=== PATIENT | male | born 1955 | race Caucasian/White ===

== ENCOUNTER 2017-05-30 13:28 | Emergency (ER) | payer MEDICARE, OTHER ==
[~2017-05-30] VITALS: Ht 182.9 cm; Wt 68.2 kg
[2017-05-30 14:09] VITALS: BP 135/87; PULSE 75; RESP 14; TEMP 98.6; O2SAT 98
--- NOTE | 2017-05-30 14:23 | PD ---
HPI Chief Complaint: Alcohol/Drug Intoxication Time Seen by Provider: 14:10 Travel History International Travel<30 days: No Contact w/Intl Traveler<30days: No Traveled to known affect area: No History of Present Illness HPI BROUGHT IN BY [place] [employer]ICE , DUE TO ETOH INTOXICATION APPARENTLY WHILE AT [facility], PT WAS UNABLE TO EXIT UNDER HIS OWN POWER SO PD CALLED, [facility] Social History Alcohol Use: Yes Tobacco Use: Yes Allergies-Medications (Allergen,Severity, Reaction): Coded Allergies: No Known Allergies (Unverified , 05/30/17) Reported Meds & Prescriptions Reported Meds & Active Scripts Active Active Prescriptions or Reported Medications Unobtainable Review of Systems Except as stated in HPI: all other systems reviewed are Neg Psychiatric: Positive: Substance Abuse Physical Exam Narrative GENERAL: PATIENT IS RIGHT AKA, ETOH ON BREATH, DECLINING TO ANSWER QUESTIONS, STATES HE DOESN'T WANT TO BE HERE SKIN: Warm and dry. HEAD: Atraumatic. Normocephalic. EYES: Pupils equal and round. No scleral icterus. No injection or drainage. ENT: No nasal bleeding or discharge. Mucous membranes pink and moist. NECK: Trachea midline. No JVD. CARDIOVASCULAR: Regular rate and rhythm. RESPIRATORY: No accessory muscle use. Clear to auscultation. Breath sounds equal bilaterally. GASTROINTESTINAL: Abdomen soft, non-tender, nondistended. MUSCULOSKELETAL: Extremities without clubbing, cyanosis, or edema. No obvious deformities. NEUROLOGICAL: Awake and alert. No obvious cranial nerve deficits. Motor grossly within normal limits. Five out of 5 muscle strength in the arms and legs. PSYCHIATRIC: DIFFICULT TO ASSESS. PATIENT IS VERBALLY ABUSIVE AND ATTEMPTED TO SWING AT RN, RESTRAINTS PLACED TO PROTECT STAFF. Data Data Last Documented VS Vital Signs Date Time Temp Pulse Resp B/P (MAP) Pulse Ox O2 Delivery O2 Flow Rate FiO2 05/30/17 14:09 98.6 75 14 135/87 (103) 98 Orders Orders Basic Metabolic Panel (Bmp) (05/30/17 14:16) Complete Blood Count With Diff (05/30/17 14:16) Creatine Kinase (Cpk) (05/30/17 14:16) Urinalysis - C+S If Indicated (05/30/17 14:16) Ct Brain W/O Iv Contrast(Rout) (05/30/17 14:16) Drug Screen, Random Urine (05/30/17 14:16) Alcohol (Ethanol) (05/30/17 14:16) Tylenol (Acetaminophen) (05/30/17 14:16) Salicylates (Aspirin) (05/30/17 14:16) CKMB (05/30/17 14:46) CKMB% (05/30/17 14:46) Thiamine Inj (Thiamine Inj) (05/30/17 16:15) Sodium Chlor 0.9% 1000 Ml Inj (Ns 1000 M (05/30/17 16:15) Basic Metabolic Panel (Bmp) (05/30/17 16:27) Sodium Bicarbonate 8.4% Inj (Sodium Bica (05/30/17 17:00) Labs Laboratory Tests Test 05/30/17 14:46 05/30/17 16:00 White Blood Count 10.0 TH/MM3 Red Blood Count 4.63 MIL/MM3 Hemoglobin 13.2 GM/DL Hematocrit 41.1 % Mean Corpuscular Volume 88.7 FL Mean Corpuscular Hemoglobin 28.6 PG Mean Corpuscular Hemoglobin Concent 32.2 % Red Cell Distribution Width 16.7 % Platelet Count 354 TH/MM3 Mean Platelet Volume 7.6 FL Neutrophils (%) (Auto) 62.8 % Lymphocytes (%) (Auto) 25.8 % Monocytes (%) (Auto) 6.7 % Eosinophils (%) (Auto) 4.0 % Basophils (%) (Auto) 0.7 % Neutrophils # (Auto) 6.3 TH/MM3 Lymphocytes # (Auto) 2.6 TH/MM3 Monocytes # (Auto) 0.7 TH/MM3 Eosinophils # (Auto) 0.4 TH/MM3 Basophils # (Auto) 0.1 TH/MM3 CBC Comment DIFF FINAL Differential Comment Blood Urea Nitrogen 13 MG/DL Creatinine 0.59 MG/DL Random Glucose 63 MG/DL Calcium Level 8.4 MG/DL Sodium Level 130 MEQ/L Potassium Level 6.2 MEQ/L Chloride Level 103 MEQ/L Carbon Dioxide Level 19.1 MEQ/L Anion Gap 8 MEQ/L Estimat Glomerular Filtration Rate 119 ML/MIN Total Creatine Kinase 338 U/L Creatine Kinase MB 3.6 NG/ML Creatine Kinase MB % 1.1 % Salicylates Level 4.0 MG/DL Acetaminophen Level LESS THAN 2.0 MCG/ML Ethyl Alcohol Level 133 MG/DL Urine Color LIGHT-YELLOW Urine Turbidity CLEAR Urine pH 5.0 Urine Specific [place] 1.007 Urine Protein NEG mg/dL Urine Glucose (UA) NEG mg/dL Urine Ketones NEG mg/dL Urine Occult Blood NEG Urine Nitrite NEG Urine Bilirubin NEG Urine Urobilinogen LESS THAN 2.0 MG/DL Urine Leukocyte Esterase TRACE Urine RBC 1 /hpf Urine WBC 2 /hpf Microscopic Urinalysis Comment CATH-CULT NOT IND Urine Opiates Screen NEG Urine Barbiturates Screen NEG Urine Amphetamines Screen NEG Urine Benzodiazepines Screen NEG Urine Cocaine Screen NEG Urine Cannabinoids Screen NEG MDM Medical Decision Making Medical Screen Exam Complete: Yes Emergency Medical Condition: Yes Medical Record Reviewed: Yes Differential Diagnosis ICH V ELECTROLYTE ABNL V ETOH INTOXICATION Narrative Course PATIENT CT HEAD NEG FOR ICH, NO ANEMIA, NO LEUKOCYTOSIS NOTED. ETOH MILDLY ELEVATED. ELECTROLYTES WERE ABNORMAL HOWEVER SAMPLE WAS ALSO LYSED, SO PATIENT GIVEN NS BOLUS, SINGLE AMP OF BICARB, AND REPEAT LABS...PATIENT SIGNED OUT TO DR SAINZ TO REEVAL AND DISPO Diagnosis Primary Impression: ETOH INTOXICATION Scripts Unable to Obtain Active Prescriptions or Reported Meds Jong Campbell MD May 30, 2017 14:23
--- NOTE | 2017-05-30 15:10 | RADRPT ---
EXAM DATE/TIME: 05/30/2017 14:51 [place] COMPARISON: No previous studies available for comparison. INDICATIONS : Found laying in parking lot RADIATION DOSE: 56.35 CTDIvol (mGy) MEDICAL HISTORY : Non-responsive. SURGICAL HISTORY : Non-responsive. ENCOUNTER: Initial ACUITY: 1 day PAIN SCALE: Non-responsive LOCATION: cranial TECHNIQUE: Multiple contiguous axial images were obtained of the head. Using automated exposure control and adj ustment of the mA and/or kV according to patient size, radiation dose was kept as low as reasonably a chievable to obtain optimal diagnostic quality images. DICOM format image data is available electro nically for review and comparison. FINDINGS: CEREBRUM: Large area of encephalomalacia left middle cerebral artery distribution from previous infarct. Ex vac uo dilatation left lateral ventricle. The ventricles are otherwise normal. No evidence of midline sh ift, mass lesion, hemorrhage or acute infarction. No extra-axial fluid collections are seen. POSTERIOR FOSSA: The cerebellum and brainstem are intact. The 4th ventricle is midline. The cerebellopontine angle i s unremarkable. EXTRACRANIAL: The visualized portion of the orbits is intact. SKULL: The calvaria is intact. No evidence of skull fracture. CONCLUSION: 1. 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 2. No acute intracranial abnormality. Michael Aguero MD on May 30, 2017 at 15:08 Board Certified Radiologist. This report was verified electronically.
[2017-05-30 15:33] LABS: AUTOMATED NEUTROPHIL # 6.3 TH/MM3 (1.8-7.7); BASOPHIL # 0.1 TH/MM3 (0-0.2); BASOPHIL % 0.7 % (0.0-2.0); EOSINOPHIL # 0.4 TH/MM3 (0-0.4); HEMATOCRIT 41.1 % (39.0-51.0); HEMO FLAGS DIFF FINAL; LYMPH % 25.8 % (9.0-44.0); LYMPHOCYTE # 2.6 TH/MM3 (1.0-4.8); MEAN CELL VOLUME 88.7 FL (80.0-100.0); MEAN CORPUSCULAR HEMOGLOBIN 28.6 PG (27.0-34.0); MEAN CORPUSCULAR HGB CONC 32.2 % (32.0-36.0); MONO % 6.7 % (0.0-8.0); NEUT % 62.8 % (16.0-70.0); PLATELET COUNT 354 TH/MM3 (150-450); RED BLOOD COUNT 4.63 MIL/MM3 (4.50-5.90); RED CELL DISTRIBUTION WIDTH 16.7 % (11.6-17.2)
[2017-05-30 15:56] LABS: ANION GAP 8 MEQ/L (5-15); BICARBONATE 19.1 MEQ/L (21.0-32.0); BLOOD UREA NITROGEN 13 MG/DL (7-18); CHLORIDE 103 MEQ/L (98-107); GLOMERULAR FILTRATION RATE 119 ML/MIN (>89); SODIUM (NA) 130 MEQ/L (136-145)
[2017-05-30 15:58] LABS: CREATINE KINASE 338 U/L (39-308)
[2017-05-30 16:01] LABS: ACETAMINOPHEN LESS THAN 2.0 MCG/ML (10.0-30.0); ALCOHOL 133 MG/DL (0-5); POTASSIUM 6.2 MEQ/L (3.5-5.1)
[2017-05-30] MEDS ORDERED: SODIUM CHLOR 0.9% 1000 ML INJ 1,000 ML IV ONE (16:15)
[2017-05-30] MEDS ORDERED: THIAMINE INJ 100 MG in SODIUM CHLORIDE 0.9% INJ 100 ML IV ONE (16:15)
[2017-05-30 16:27] LABS: CKMB 3.6 NG/ML (0.5-3.6)
[2017-05-30 16:44] LABS: BLOOD, URINE NEG (NEG); GLUCOSE,URINE NEG (NEG); KETONE, URINE NEG (NEG); NITRITE,URINE NEG (NEG); URINE COLOR LIGHT-YELLOW (YELLW/STRAW)
[2017-05-30 16:46] LABS: COMMENT (UR) CATH-CULT NOT IND; CULTURE IF INDICATED CATH CULTURE NOT IND
[2017-05-30] MEDS ORDERED: SODIUM BICARBONATE 8.4% INJ 50 MEQ/50 ML SYR IV PUSH ONE (17:00)
[2017-05-30 18:05] LABS: BICARBONATE 21.6 MEQ/L (21.0-32.0)
--- NOTE | 2017-05-30 18:55 | PD ---
Physical Exam Narrative Patient signed out to me by Dr. Campbell. Please see his documentation for complete details. Briefly, patient was brought in by police after he was unable to leave on his own accord from a local bar. Patient was violent and uncooperative when he arrived, he required restraints. CT of his head was performed shows no acute abnormalities. Patient is sleeping comfortably, there is an old bruise to his right eye, no other signs of trauma. Data Data Last Documented VS Vital Signs Date Time Temp Pulse Resp B/P (MAP) Pulse Ox O2 Delivery O2 Flow Rate FiO2 05/30/17 14:09 98.6 75 14 135/87 (103) 98 Orders Orders Basic Metabolic Panel (Bmp) (05/30/17 14:16) Complete Blood Count With Diff (05/30/17 14:16) Creatine Kinase (Cpk) (05/30/17 14:16) Urinalysis - C+S If Indicated (05/30/17 14:16) Ct Brain W/O Iv Contrast(Rout) (05/30/17 14:16) Drug Screen, Random Urine (05/30/17 14:16) Alcohol (Ethanol) (05/30/17 14:16) Tylenol (Acetaminophen) (05/30/17 14:16) Salicylates (Aspirin) (05/30/17 14:16) CKMB (05/30/17 14:46) CKMB% (05/30/17 14:46) Thiamine Inj (Thiamine Inj) (05/30/17 16:15) Sodium Chlor 0.9% 1000 Ml Inj (Ns 1000 M (05/30/17 16:15) Basic Metabolic Panel (Bmp) (05/30/17 16:27) Sodium Bicarbonate 8.4% Inj (Sodium Bica (05/30/17 17:00) Labs Laboratory Tests Test 05/30/17 14:46 05/30/17 16:00 05/30/17 17:00 White Blood Count 10.0 TH/MM3 Red Blood Count 4.63 MIL/MM3 Hemoglobin 13.2 GM/DL Hematocrit 41.1 % Mean Corpuscular Volume 88.7 FL Mean Corpuscular Hemoglobin 28.6 PG Mean Corpuscular Hemoglobin Concent 32.2 % Red Cell Distribution Width 16.7 % Platelet Count 354 TH/MM3 Mean Platelet Volume 7.6 FL Neutrophils (%) (Auto) 62.8 % Lymphocytes (%) (Auto) 25.8 % Monocytes (%) (Auto) 6.7 % Eosinophils (%) (Auto) 4.0 % Basophils (%) (Auto) 0.7 % Neutrophils # (Auto) 6.3 TH/MM3 Lymphocytes # (Auto) 2.6 TH/MM3 Monocytes # (Auto) 0.7 TH/MM3 Eosinophils # (Auto) 0.4 TH/MM3 Basophils # (Auto) 0.1 TH/MM3 CBC Comment DIFF FINAL Differential Comment Blood Urea Nitrogen 13 MG/DL 13 MG/DL Creatinine 0.59 MG/DL 0.56 MG/DL Random Glucose 63 MG/DL 59 MG/DL Calcium Level 8.4 MG/DL 8.5 MG/DL Sodium Level 130 MEQ/L 137 MEQ/L Potassium Level 6.2 MEQ/L 4.0 MEQ/L Chloride Level 103 MEQ/L 107 MEQ/L Carbon Dioxide Level 19.1 MEQ/L 21.6 MEQ/L Anion Gap 8 MEQ/L 8 MEQ/L Estimat Glomerular Filtration Rate 119 ML/MIN 126 ML/MIN Total Creatine Kinase 338 U/L Creatine Kinase MB 3.6 NG/ML Creatine Kinase MB % 1.1 % Salicylates Level 4.0 MG/DL Acetaminophen Level LESS THAN 2.0 MCG/ML Ethyl Alcohol Level 133 MG/DL Urine Color LIGHT-YELLOW Urine Turbidity CLEAR Urine pH 5.0 Urine Specific [place] 1.007 Urine Protein NEG mg/dL Urine Glucose (UA) NEG mg/dL Urine Ketones NEG mg/dL Urine Occult Blood NEG Urine Nitrite NEG Urine Bilirubin NEG Urine Urobilinogen LESS THAN 2.0 MG/DL Urine Leukocyte Esterase TRACE Urine RBC 1 /hpf Urine WBC 2 /hpf Microscopic Urinalysis Comment CATH-CULT NOT IND Urine Opiates Screen NEG Urine Barbiturates Screen NEG Urine Amphetamines Screen NEG Urine Benzodiazepines Screen NEG Urine Cocaine Screen NEG Urine Cannabinoids Screen NEG MDM Supervised Visit with RAÚL: No Narrative Course Repeat BMP shows no acute abnormalities. Blood alcohol level was 133, is currently sober at this time. He is still refusing to answer any questions. He is aggressive and uncooperative. Medically, there are no abnormalities seen. He'll be discharged home. Advised to avoid alcohol use. Diagnosis Primary Impression: ETOH INTOXICATION Patient Instructions: Abuse of Alcohol (ED), General Instructions Additional Instruction: Avoid alcohol use. Drink plenty of fluids. Follow-up with her primary care doctor. Return to the ED as needed for any worsening symptoms. Scripts Unable to Obtain Active Prescriptions or Reported Meds Disposition: 01 DISCHARGE HOME Condition: Stable Tatyana Mcnally MD May 30, 2017 18:55
== END 2017-05-30 21:21 | disposition home or self-care (01) ==
LOC: EDBD 13:28 → NEDAMB 13:28 → NEPD 21:21
DX: F10.920 Alcohol use, unspecified with intoxication, uncomplicated (principal)
CPT/HCPCS: 70450; 80048; 80307; 81001; 82550; 82552; 85025; 96365; 96366; 99285; J3411; J7030

== ENCOUNTER 2017-06-04 07:18 | Emergency (ER) | payer MEDICARE, OTHER ==
[~2017-06-04] VITALS: Ht 172.7 cm; Wt 80.0 kg
[2017-06-04 07:30] VITALS: BP 160/106; PULSE 92; RESP 16; TEMP 97.7; O2SAT 96
--- NOTE | 2017-06-04 07:54 | PD ---
HPI Chief Complaint: Alcohol/Drug Intoxication Time Seen by Provider: 07:28 Travel History International Travel<30 days: No Contact w/Intl Traveler<30days: No Traveled to known affect area: No History of Present Illness HPI 61 yo M arrives by EMS. Pt found on sidewalk in front of [place] this am. EMS reports agitation and etoh on breath. Pt agitated at time of interview. He was seen here last night following ED evaluation for alcohol intoxication and was discharged at 1830. [facility] Social History Alcohol Use: Yes Tobacco Use: Yes Allergies-Medications (Allergen,Severity, Reaction): Coded Allergies: No Known Allergies (Unverified , 05/30/17) Reported Meds & Prescriptions Reported Meds & Active Scripts Active Active Prescriptions or Reported Medications Unobtainable Review of Systems ROS Limitations: Intoxication Physical Exam Narrative GENERAL: 61 yo M, etoh on breath, asleep, arouses to tactile stimulus SKIN: Warm and dry. HEAD: Atraumatic. Normocephalic. EYES: Pupils equal and round. No scleral icterus. No injection or drainage. ENT: No nasal bleeding or discharge. Mucous membranes pink and moist. Healing laceration R face just inferior to the R lower lid. NECK: Trachea midline. No JVD. CARDIOVASCULAR: Regular rate and rhythm. RESPIRATORY: No accessory muscle use. Clear to auscultation. Breath sounds equal bilaterally. GASTROINTESTINAL: Abdomen soft, non-tender, nondistended. Hepatic and splenic margins not palpable. MUSCULOSKELETAL: Extremities without clubbing, cyanosis, or edema. No obvious deformities. NEUROLOGICAL: GCS 15. No focal CN deficit. Moving all extremities. PSYCHIATRIC: EtOH on breath. Agitated. Uncooperative. Data Data Last Documented VS Vital Signs Date Time Temp Pulse Resp B/P (MAP) Pulse Ox O2 Delivery O2 Flow Rate FiO2 06/04/17 07:30 97.7 92 16 160/106 (124) 96 VS reviewed [facility] Medical Decision Making Medical Screen Exam Complete: Yes Emergency Medical Condition: Yes Medical Record Reviewed: Yes Differential Diagnosis etoh intoxication, alcoholism, drug abuse, malingering, homelessness Narrative Course pt gradually became sober in the er after about 6 hours. discharge home. [facility]. Diagnosis Primary Impression: Alcohol intoxication Qualified Codes: F10.920 - Alcohol use, unspecified with intoxication, uncomplicated Referrals: [facility] day Med/Other Pt SpecificInfo: No Change to Meds Scripts Unable to Obtain Active Prescriptions or Reported Meds Disposition: 01 DISCHARGE HOME Condition: Stable Daquan Gregg MD Jun 04, 2017 07:54
== END 2017-06-04 16:21 | disposition home or self-care (01) ==
LOC: NEPC 07:18 → NEDAMB 16:21
DX: F10.920 Alcohol use, unspecified with intoxication, uncomplicated (principal)
CPT/HCPCS: 99281

== ENCOUNTER 2017-06-06 15:28 | Inpatient (IN) | payer MEDICARE, OTHER ==
[~2017-06-06] VITALS: Ht 182.9 cm; Wt 117.2 kg
[2017-06-06 15:35] VITALS: BP 133/87; PULSE 79; RESP 18; TEMP 98.1; O2SAT 94
--- NOTE | 2017-06-06 16:12 | PD ---
HPI Chief Complaint: Medical Clearance Time Seen by Provider: 15:58 Travel History International Travel<30 days: No Contact w/Intl Traveler<30days: No Traveled to known affect area: No History of Present Illness HPI 61-year-old male that presents to the ED for evaluation of Smith act. Patient was Smith acted by police after apparently he made suicidal statements to police. Per patient he denies this. He states that he has not been able to drink anything because he is broke. He denies any substance abuse. He does have a history of alcoholism and homelessness. He is disabled and has a AKA on the right leg. Patient was here just in the 26 for a major psych. He denies any psychiatric issues. Takes no medications. No injuries or falls. He does have a chronic wound to his right face that he states he got when he was 19. He has no allergies to medication. Other medical issues. Per patient he does have a lot of social issues secondary to being homeless. PFSH Past Medical History Hypertension: Yes Social History Alcohol Use: Yes Tobacco Use: Yes Allergies-Medications (Allergen,Severity, Reaction): Coded Allergies: No Known Allergies (Unverified , 05/30/17) Reported Meds & Prescriptions Reported Meds & Active Scripts Active Active Prescriptions or Reported Medications Unobtainable Review of Systems Except as stated in HPI: all other systems reviewed are Neg Physical Exam Narrative GENERAL: SKIN: Warm and dry. What appears to be a chronic wound to the right lower eyelid. HEAD: Atraumatic. Normocephalic. EYES: Pupils equal and round. No scleral icterus. No injection or drainage. ENT: No nasal bleeding or discharge. Mucous membranes pink and moist. Tongue is midline. No uvula deviation. NECK: Trachea midline. No JVD. CARDIOVASCULAR: Regular rate and rhythm. No murmurs, S3, S4. RESPIRATORY: No accessory muscle use. Clear to auscultation. Breath sounds equal bilaterally. GASTROINTESTINAL: Abdomen soft, non-tender, nondistended. Hepatic and splenic margins not palpable. MUSCULOSKELETAL: Extremities without clubbing, cyanosis, or edema. No obvious deformities. Full range of motion of the upper and lower extremities bilaterally. 2+ pulses bilaterally. Patient has an AKA on the right leg. NEUROLOGICAL: Awake and alert. No obvious cranial nerve deficits. Motor grossly within normal limits. Five out of 5 muscle strength in the arms and legs. Normal speech. PSYCHIATRIC: Appropriate mood and affect; insight and judgment normal. Data Data Last Documented VS Vital Signs Date Time Temp Pulse Resp B/P (MAP) Pulse Ox O2 Delivery O2 Flow Rate FiO2 06/06/17 15:35 98.1 79 18 133/87 (102) 94 Orders Orders Complete Blood Count With Diff (06/06/17 15:56) Comprehensive Metabolic Panel (06/06/17 15:56) Psych Screen (06/06/17 15:56) Drug Screen, Random Urine (06/06/17 15:56) Alcohol (Ethanol) (06/06/17 15:56) Salicylates (Aspirin) (06/06/17 15:56) Tylenol (Acetaminophen) (06/06/17 15:56) Labs Laboratory Tests Test 06/06/17 16:20 White Blood Count 9.1 TH/MM3 Red Blood Count 4.48 MIL/MM3 Hemoglobin 13.2 GM/DL Hematocrit 40.0 % Mean Corpuscular Volume 89.3 FL Mean Corpuscular Hemoglobin 29.5 PG Mean Corpuscular Hemoglobin Concent 33.1 % Red Cell Distribution Width 16.4 % Platelet Count 356 TH/MM3 Mean Platelet Volume 7.9 FL Neutrophils (%) (Auto) 56.5 % Lymphocytes (%) (Auto) 23.5 % Monocytes (%) (Auto) 9.1 % Eosinophils (%) (Auto) 10.2 % Basophils (%) (Auto) 0.7 % Neutrophils # (Auto) 5.1 TH/MM3 Lymphocytes # (Auto) 2.1 TH/MM3 Monocytes # (Auto) 0.8 TH/MM3 Eosinophils # (Auto) 0.9 TH/MM3 Basophils # (Auto) 0.1 TH/MM3 CBC Comment DIFF FINAL Differential Comment Blood Urea Nitrogen 13 MG/DL Creatinine 0.59 MG/DL Random Glucose 95 MG/DL Total Protein 7.0 GM/DL Albumin 3.2 GM/DL Calcium Level 8.3 MG/DL Alkaline Phosphatase 115 U/L Aspartate Amino Transf (AST/SGOT) 14 U/L Alanine Aminotransferase (ALT/SGPT) 14 U/L Total Bilirubin 0.5 MG/DL Sodium Level 141 MEQ/L Potassium Level 3.4 MEQ/L Chloride Level 110 MEQ/L Carbon Dioxide Level 23.8 MEQ/L Anion Gap 7 MEQ/L Estimat Glomerular Filtration Rate 140 ML/MIN Salicylates Level 5.6 MG/DL Ethyl Alcohol Level LESS THAN 3 MG/DL MDM Medical Decision Making Medical Screen Exam Complete: Yes Emergency Medical Condition: Yes Medical Record Reviewed: Yes Interpretation(s) CBC & BMP Diagram 06/06/17 16:20 Total Protein 7.0, Albumin 3.2 L, Calcium Level 8.3 L, Alkaline Phosphatase 115 , Aspartate Amino Transf (AST/SGOT) 14 L, Alanine Aminotransferase (ALT/SGPT) 14 , Total Bilirubin 0.5 tox negative Differential Diagnosis Depression versus suicidal ideation versus anxiety versus adjustment disorder versus mood disorder versus bipolar disorder versus schizophrenia versus paranoid disorder versus psychosis versus substance abuse versus alcohol abuse versus alcohol induced psychosis versus homicidality addition versus cutting versus personality disorder Narrative Course 61-year-old male that presents to the ED for evaluation of psychiatric evaluation. Patient was properly examined and was found to have signs and symptoms consistent with psychiatric issues. No sign of acute medical distress. Labs will be drawn. Patient will be medically clear. Okay to be seen by psych. Mental health screening was discussed with the patient. Diagnosis Primary Impression: Suicidal ideation Additional Impression: Substance induced mood disorder Scripts Unable to Obtain Active Prescriptions or Reported Meds Mando Payan Jun 06, 2017 16:12
[2017-06-06 16:53] LABS: AUTOMATED NEUTROPHIL # 5.1 TH/MM3 (1.8-7.7); BASOPHIL # 0.1 TH/MM3 (0-0.2); BASOPHIL % 0.7 % (0.0-2.0); EOSINOPHIL # 0.9 TH/MM3 (0-0.4); EOSINOPHIL % 10.2 % (0.0-4.0); HEMO FLAGS DIFF FINAL; LYMPH % 23.5 % (9.0-44.0); LYMPHOCYTE # 2.1 TH/MM3 (1.0-4.8); MEAN CELL VOLUME 89.3 FL (80.0-100.0); MEAN CORPUSCULAR HEMOGLOBIN 29.5 PG (27.0-34.0); MEAN CORPUSCULAR HGB CONC 33.1 % (32.0-36.0); MONO % 9.1 % (0.0-8.0); NEUT % 56.5 % (16.0-70.0); PLATELET COUNT 356 TH/MM3 (150-450); RED BLOOD COUNT 4.48 MIL/MM3 (4.50-5.90); RED CELL DISTRIBUTION WIDTH 16.4 % (11.6-17.2); WHITE BLOOD COUNT 9.1 TH/MM3 (4.0-11.0)
[2017-06-06 17:19] LABS: ALT (GPT) 14 U/L (12-78); ANION GAP 7 MEQ/L (5-15); AST (GOT) 14 U/L (15-37); BICARBONATE 23.8 MEQ/L (21.0-32.0); BLOOD UREA NITROGEN 13 MG/DL (7-18); CHLORIDE 110 MEQ/L (98-107); GLOMERULAR FILTRATION RATE 140 ML/MIN (>89); POTASSIUM 3.4 MEQ/L (3.5-5.1); SODIUM (NA) 141 MEQ/L (136-145)
[2017-06-06 17:21] LABS: ALCOHOL LESS THAN 3 MG/DL (0-5); ALKALINE PHOSPHATASE 115 U/L (45-117); TOTAL BILIRUBIN ADULT 0.5 MG/DL (0.2-1.0)
[2017-06-06 17:32] LABS: ACETAMINOPHEN LESS THAN 2.0 MCG/ML (10.0-30.0)
--- NOTE | 2017-06-06 18:51 | PD ---
Physical Exam Time Seen by Provider: 18:35 Narrative I was asked by [facility] nursing staff to evaluate patient's pressure ulcers which were found upon disrobing the patient. The patient is apparently here under Smith act for suicidal ideation. He has history of alcoholism and homelessness. 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 He is believed to be homeless and wheelchair-bound. Please see other providers full note regarding patient's presentation and medical treatment plan. Data Data Last Documented VS Vital Signs Date Time Temp Pulse Resp B/P (MAP) Pulse Ox O2 Delivery O2 Flow Rate FiO2 06/06/17 15:35 98.1 79 18 133/87 (102) 94 Orders Orders Complete Blood Count With Diff (06/06/17 15:56) Comprehensive Metabolic Panel (06/06/17 15:56) Psych Screen (06/06/17 15:56) Drug Screen, Random Urine (06/06/17 15:56) Alcohol (Ethanol) (06/06/17 15:56) Salicylates (Aspirin) (06/06/17 15:56) Tylenol (Acetaminophen) (06/06/17 15:56) Consult Wound / Ostomy Nurse (06/06/17 ) Labs Laboratory Tests Test 06/06/17 16:20 White Blood Count 9.1 TH/MM3 Red Blood Count 4.48 MIL/MM3 Hemoglobin 13.2 GM/DL Hematocrit 40.0 % Mean Corpuscular Volume 89.3 FL Mean Corpuscular Hemoglobin 29.5 PG Mean Corpuscular Hemoglobin Concent 33.1 % Red Cell Distribution Width 16.4 % Platelet Count 356 TH/MM3 Mean Platelet Volume 7.9 FL Neutrophils (%) (Auto) 56.5 % Lymphocytes (%) (Auto) 23.5 % Monocytes (%) (Auto) 9.1 % Eosinophils (%) (Auto) 10.2 % Basophils (%) (Auto) 0.7 % Neutrophils # (Auto) 5.1 TH/MM3 Lymphocytes # (Auto) 2.1 TH/MM3 Monocytes # (Auto) 0.8 TH/MM3 Eosinophils # (Auto) 0.9 TH/MM3 Basophils # (Auto) 0.1 TH/MM3 CBC Comment DIFF FINAL Differential Comment Blood Urea Nitrogen 13 MG/DL Creatinine 0.59 MG/DL Random Glucose 95 MG/DL Total Protein 7.0 GM/DL Albumin 3.2 GM/DL Calcium Level 8.3 MG/DL Alkaline Phosphatase 115 U/L Aspartate Amino Transf (AST/SGOT) 14 U/L Alanine Aminotransferase (ALT/SGPT) 14 U/L Total Bilirubin 0.5 MG/DL Sodium Level 141 MEQ/L Potassium Level 3.4 MEQ/L Chloride Level 110 MEQ/L Carbon Dioxide Level 23.8 MEQ/L Anion Gap 7 MEQ/L Estimat Glomerular Filtration Rate 140 ML/MIN Salicylates Level 5.6 MG/DL Acetaminophen Level LESS THAN 2.0 MCG/ML Ethyl Alcohol Level LESS THAN 3 MG/DL MDM Supervised Visit with RAÚL: Yes Narrative Course I was asked by [facility] nursing staff to evaluate patient's pressure ulcers which were found upon disrobing the patient. The patient is apparently here under Smith act for suicidal ideation. He has history of alcoholism and homelessness. 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 He is believed to be homeless and wheelchair-bound. Please see other providers full note regarding patient's presentation and medical treatment plan. Upon examination patient has stage II pressure ulcer to bilateral buttocks right side measuring approximately 2 x 2 centimeter and left side measuring 3 x 3 cm. there is no surrounding erythema or signs of infection. The nursing staff was instructed to offload the area by having the patient alternate lying on each side. The wound care consult was placed to evaluate and recommend treatment for patient's pressure ulcers. Diagnosis Primary Impression: Suicidal ideation Additional Impression: Substance induced mood disorder Scripts No Active Prescriptions or Reported Meds Fe Stovall Jun 06, 2017 18:51
[2017-06-06 21:28] LABS: BLOOD, URINE NEG (NEG); COMMENT (UR) CULTURE INDICATED; CULTURE IF INDICATED CULTURE INDICATED; GLUCOSE,URINE NEG (NEG); KETONE, URINE TRACE mg/dL (NEG); NITRITE,URINE NEG (NEG); SQUAMOUS EPITHELIAL CELL URINE 2 /hpf (0-5); URINE COLOR YELLOW (YELLW/STRAW)
[2017-06-06 22:00] VITALS: BP 186/105
[2017-06-06] MEDS ORDERED: FLUMAZENIL 0.5 MG/5 ML VIAL IV PUSH PRN (22:00)
[2017-06-06] MEDS ORDERED: diphenhydrAMINE HCL 50 MG CAP PO PRN (22:00)
[2017-06-06] MEDS ORDERED: diphenhydrAMINE HCL 50 MG/ML VIAL IM PRN (22:00)
[2017-06-06] MEDS ORDERED: LORazepam 2 MG TAB PO PRN (22:00)
[2017-06-06] MEDS ORDERED: MAGNESIUM HYDROXIDE SUSP 30 ML CUP PO PRN (22:00)
[2017-06-06] MEDS ORDERED: ACETAMINOPHEN 325 MG TAB PO PRN (22:00)
[2017-06-06] MEDS ORDERED: LORazepam 2 MG/ML VIAL IV PUSH PRN ×4 (22:00)
[2017-06-06] MEDS ORDERED: ALUMINUM/MAGNESIUM/SIMETH 30 ML CUP PO PRN (22:00)
[2017-06-06] MEDS ORDERED: LORazepam 1 MG TAB PO PRN ×2 (22:00)
[2017-06-07 04:57] VITALS: BP 155/83; PULSE 75; RESP 15; TEMP 98.3; O2SAT 95
[2017-06-07] MEDS ORDERED: HALOPERIDOL LACTATE 5 MG/ML AMP ONE (08:19)
[2017-06-07] MEDS: NICOTINE 21 MG/24 HR PATCH T-DERMAL SCH (09:00)
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
[2017-06-07] MEDS ORDERED: cloNIDine HCL 0.1 MG TAB PO PRN (11:30)
[2017-06-07] MEDS ORDERED: POTASSIUM CHLORIDE 10 MEQ CONTROLLED RELEASE TAB PO ONE (12:00)
--- NOTE | 2017-06-07 12:24 | PD.WCN.NOT ---
Wound Consult Description: Received consult for pressure ulcer to buttocks from Fe LANDIS. Communicated with: [facility]. JANIS Cervantes will relay recommendations to Doctor Petr Recommendation: 1.Please cleanse wound to R buttock with soap and water gently and pat dry. Apply thick layer of calazime barrier cream BID to buttocks and leave open to air for two days. Ok to not remove all barrier cream from skin, may layer barrier cream. Please DO NOT scrub barrier cream off of patient's skin 2. Do not apply briefs to patient 3. Please assist patient with repositioning in bed every 2 hours and PRN for comfort. Please limit time up in the chair to 1 hour. 4. After two days of using Calazime for moisture related breakdown to periwound. Please cleanse wound with normal saline only and apply Santyl ointment gilma thickness to wound bed. Apply skin prep to periwound before covering wound with bordered gauze dressing. Please change dressing daily Additional Information: Patient seen on for evaluation of pressure ulcer to buttocks. Assessed patient with the assistance of JANIS Castelan and magnetic tape typewriter operator. Patient is a confused and agitated male that allowed magnetic tape typewriter operator to turn him to L side for assessment. Removed brief in place to reveal wound to R buttock presents with ~50% yellow slough and ~50% pink tissue Wound appears to have mixed etiology of moisture and pressure and is located over the R ischial zuri prominence. Presence of ~ 50% yellow slough indicates wound is an unstageable pressure injury. Wound bed appears moist with out active drainage. Periwound is noted with blanchable erythema and denuded skin that appears to be moisture related. Wound has round shape with uneven wound margins and measures ~5cm x ~5cm x slough. Applied thick layer of Calazime barrier cream and left open to air. Patient is agitated at this time and will not let nurses or staff provide care for very long before he attempts to kick or yell staff providing care. Teresa Hall [facility] Jun 07, 2017 12:24
--- NOTE | 2017-06-07 12:31 | PD.PSY.CON ---
Provisional Diagnosis Admission Date Jun 06, 2017 at 21:23 [place] I. Adjustment disorder with depressed mood, alcohol use disorder, rule out alcohol induced mood disorder, rule out malingering [place] II. Deferred [place] III. 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 Homeless, unemployed, poor social support [place] V. 40 History of Present Illness Service Psychiatry Consult Requested By Reason for Consult Second opinion Primary Care Physician No Primary Care Physician [facility] Patient is a 61-year-old man, homeless, with past psychiatric history of alcohol use disorder, no prior psychiatric hospitalizations as per record, unclear if previous suicide attempts or self-injurious behavior, past medical history of [id number] amputation of the right leg, recent pressure ulcers and chronic wound to the right side of the face, who was brought under Smith act after he had told police he wanted to kill himself and when asked how he stated he was unsure. Patient was admitted to the inpatient psychiatric unit for further evaluation and management. Financially room patient was found on the edge of the bed at the foot and with staff present as patient was attempting to get out of bed and refusing to lay down to ensure that he would not fall hurt himself. Patient noted to be belligerent, yelling profanities at staff, no cooperative and refusing to engage in interview with commercial underwriter. Patient last seen in was provided with Ativan 2 mg as a when necessary for anxiety. She continues on CIWA protocol as patient has a history of significant alcohol use. Patient was assisted back up to the head of the bed which patient was upset about and just covered himself oh for with blankets and refused to talk to staff. The patient is a 61 years old man, unemployed, supported by [facility], with psychiatric history of self reported bipolar disorder, alcohol use disorder, previous psychiatric hospitalizations, medical history of right leg patient. Hospitalized on the [place] at due to suicidal ideation. On evaluation for second opinion, patient refuses to cooperate, he says that he doesn't want to talk and to be left alone. As per nursing report, patient has been selectively mute, guarded [place] to cooperate. Past Family Social History Coded Allergies: No Known Allergies (Unverified , 06/06/17) No Active Prescriptions or Reported Meds Current Medications Medications (Trade) Dose Ordered Sig/Nicolas Route Start Time Stop Time Status Last Admin (Ativan) 1 mg Q6H PRN PO 06/06/17 22:00 (Ativan Inj) 1 mg Q6H PRN IM 06/06/17 22:00 (Benadryl) 50 mg Q6H PRN PO 06/06/17 22:00 06/06/17 22:08 (Benadryl Inj) 50 mg Q6H PRN IM 06/06/17 22:00 (Tylenol) 650 mg Q4H PRN PO 06/06/17 22:00 (Milk Of Magnesia Liq) 30 ml DAILY PRN PO 06/06/17 22:00 (Mag-Al Plus Susp Liq) 30 ml Q6H PRN PO 06/06/17 22:00 (Habitrol 21 Mg Patch.24 Hr) 1 patch DAILY T-DERMAL 06/07/17 09:00 Miscellaneous Information 1 HS T-DERMAL 06/07/17 21:00 (Ativan) 1 mg Q4H PRN PO 06/06/17 22:00 (Ativan Inj) 1 mg Q4H PRN IV PUSH 06/06/17 22:00 (Ativan) 2 mg Q2H PRN PO 06/06/17 22:00 06/06/17 22:08 (Ativan Inj) 2 mg Q2H PRN IV PUSH 06/06/17 22:00 (Ativan Inj) 2 mg Q1H PRN IV PUSH 06/06/17 22:00 (Ativan Inj) 2 mg Q15M PRN IV PUSH 06/06/17 22:00 (Romazicon Inj) 0.2 mg Q1M PRN IV PUSH 06/06/17 22:00 (Catapres) 0.1 mg Q6H PRN PO 06/07/17 11:30 (Folate) 1 mg DAILY PO 06/08/17 09:00 06/13/17 08:59 (Vitamin B1) 100 mg DAILY PO 06/08/17 09:00 (Theragran M Tab) 1 tab DAILY PO 06/08/17 09:00 06/13/17 08:59 Patient's Strengths (min. 2) Verbal and communicative Physical Exam Vital Signs Vital Signs Date Time Temp Pulse Resp B/P (MAP) Pulse Ox O2 Delivery O2 Flow Rate FiO2 06/07/17 04:57 98.3 75 15 155/83 (107) 95 I/O 06/07/17 06/07/17 06/08/17 08:00 16:00 00:00 Intake Total 240 ml Balance 240 ml Lab Results Test 06/06/17 16:20 06/06/17 20:35 White Blood Count 9.1 TH/MM3 Red Blood Count 4.48 MIL/MM3 Hemoglobin 13.2 GM/DL Hematocrit 40.0 % Mean Corpuscular Volume 89.3 FL Mean Corpuscular Hemoglobin 29.5 PG Mean Corpuscular Hemoglobin Concent 33.1 % Red Cell Distribution Width 16.4 % Platelet Count 356 TH/MM3 Mean Platelet Volume 7.9 FL Neutrophils (%) (Auto) 56.5 % Lymphocytes (%) (Auto) 23.5 % Monocytes (%) (Auto) 9.1 % Eosinophils (%) (Auto) 10.2 % Basophils (%) (Auto) 0.7 % Neutrophils # (Auto) 5.1 TH/MM3 Lymphocytes # (Auto) 2.1 TH/MM3 Monocytes # (Auto) 0.8 TH/MM3 Eosinophils # (Auto) 0.9 TH/MM3 Basophils # (Auto) 0.1 TH/MM3 CBC Comment DIFF FINAL Differential Comment Blood Urea Nitrogen 13 MG/DL Creatinine 0.59 MG/DL Random Glucose 95 MG/DL Total Protein 7.0 GM/DL Albumin 3.2 GM/DL Calcium Level 8.3 MG/DL Alkaline Phosphatase 115 U/L Aspartate Amino Transf (AST/SGOT) 14 U/L Alanine Aminotransferase (ALT/SGPT) 14 U/L Total Bilirubin 0.5 MG/DL Sodium Level 141 MEQ/L Potassium Level 3.4 MEQ/L Chloride Level 110 MEQ/L Carbon Dioxide Level 23.8 MEQ/L Anion Gap 7 MEQ/L Estimat Glomerular Filtration Rate 140 ML/MIN Salicylates Level 5.6 MG/DL Acetaminophen Level LESS THAN 2.0 MCG/ML Ethyl Alcohol Level LESS THAN 3 MG/DL Urine Color YELLOW Urine Turbidity CLEAR Urine pH 6.0 Urine Specific [place] 1.027 Urine Protein 100 mg/dL Urine Glucose (UA) NEG mg/dL Urine Ketones TRACE mg/dL Urine Occult Blood NEG Urine Nitrite NEG Urine Bilirubin NEG Urine Urobilinogen 2.0 MG/DL Urine Leukocyte Esterase SMALL Urine RBC 1 /hpf Urine WBC 13 /hpf Urine Squamous Epithelial Cells 2 /hpf Microscopic Urinalysis Comment CULTURE INDICATED Urine Opiates Screen NEG Urine Barbiturates Screen NEG Urine Amphetamines Screen NEG Urine Benzodiazepines Screen NEG Urine Cocaine Screen NEG Urine Cannabinoids Screen POS Date/Time Source Procedure Growth Status 06/06/17 20:35 Urine Random Urine Urine Culture - Preliminary No growth. Resulted Mental Status Examination Speech: Other (yelling at times) Orientation: Person Memory: Unremarkable (unable to assess) Thought Process: Linear Thought Content: Unremarkable (unable to assess) Hallucination Type: None (unable to assess) Suicidal Ideation: Yes (as per Smith act but unable to assess at time of interview) Previous Suicide Attempts: No (none as per record) Homicidal Ideation: No Previous Homicide Attempts: No Insight: Poor Judgment: Poor Affect: Irritable Mood: Irritable Assessment & Plan Problem List: (1) Alcohol use disorder ICD Codes: F10.99 - Alcohol use, unspecified with unspecified alcohol-induced disorder (2) Adjustment disorder with depressed mood ICD Codes: F43.21 - Adjustment disorder with depressed mood Assessment & Plan: I have seen and examined this patient myself, reviewed the documentation, discussed with Dr. Humphreys, I agree and concur with this plan and assessment. Assessment & Plan Estimated LOS: Fabrice Browne MD Jun 07, 2017 12:31
--- NOTE | 2017-06-07 13:31 | PD.CONS ---
HPI Service [facility] Consult Requested By Dr. Humphreys Reason for Consult Medical management Primary Care Physician No Primary Care Physician Diagnoses: History of Present Illness This is a 61-year-old male who was brought into the emergency department under Smith act secondary to suicidal ideations. Consultation was requested by his attending to evaluate and manage multiple medical conditions. Patient has history of alcohol abuse, right AKA and hypertension. History of present illness mainly taken from discussion with psychiatry staff and review of records. Patient not cooperative. He does not quantify how much he drinks. He has hypertension but not on medications. 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 All other systems reviewed negative Review of Systems Except as stated in HPI: all other systems reviewed are Neg Past Family Social History Allergies: Coded Allergies: No Known Allergies (Unverified , 06/06/17) Past Medical History As previously mentioned Past Surgical History As previously mentioned Reported Medications None Family History Patient did answer my question Social History He smokes and drinks Physical Exam Vital Signs Vital Signs Date Time Temp Pulse Resp B/P (MAP) Pulse Ox O2 Delivery O2 Flow Rate FiO2 06/07/17 04:57 98.3 75 15 155/83 (107) 95 06/06/17 22:00 186/105 (132) 06/06/17 15:35 98.1 79 18 133/87 (102) 94 Physical Exam GENERAL: This is a well-nourished, well-developed patient, in no apparent distress. SKIN: Desquamation left foot Dark discoloration right infraorbital patient refuses closer examination HEAD: Atraumatic. Normocephalic. No temporal or scalp tenderness. EYES: Pupils equal round and reactive. Extraocular motions intact. No scleral icterus. No injection or drainage. ENT: Nose without bleeding, purulent drainage or septal hematoma. Throat without erythema, tonsillar hypertrophy or exudate. Uvula midline. Airway patent. NECK: Trachea midline. No JVD or lymphadenopathy. Supple, nontender, no meningeal signs. CARDIOVASCULAR: Regular rate and rhythm without murmurs, gallops, or rubs. RESPIRATORY: Clear to auscultation. Breath sounds equal bilaterally. No wheezes , rales, or rhonchi. GASTROINTESTINAL: Abdomen soft, non-tender, nondistended. No guarding. MUSCULOSKELETAL: Extremities without clubbing, cyanosis, or edema. No joint tenderness, effusion, or edema noted. No calf tenderness. Negative Hom[place] sign bilaterally. Right AKA stump clear of infection. Patient refused to rollover to have decubiti examined NEUROLOGICAL: Awake and alert. Cranial nerves II through XII intact. Motor and sensory grossly within normal limits. Five out of 5 muscle strength in all muscle groups. Normal speech. Laboratory Laboratory Tests Test 06/06/17 16:20 06/06/17 20:35 White Blood Count 9.1 Red Blood Count 4.48 Hemoglobin 13.2 Hematocrit 40.0 Mean Corpuscular Volume 89.3 Mean Corpuscular Hemoglobin 29.5 Mean Corpuscular Hemoglobin Concent 33.1 Red Cell Distribution Width 16.4 Platelet Count 356 Mean Platelet Volume 7.9 Neutrophils (%) (Auto) 56.5 Lymphocytes (%) (Auto) 23.5 Monocytes (%) (Auto) 9.1 Eosinophils (%) (Auto) 10.2 Basophils (%) (Auto) 0.7 Neutrophils # (Auto) 5.1 Lymphocytes # (Auto) 2.1 Monocytes # (Auto) 0.8 Eosinophils # (Auto) 0.9 Basophils # (Auto) 0.1 CBC Comment DIFF FINAL Differential Comment Blood Urea Nitrogen 13 Creatinine 0.59 Random Glucose 95 Total Protein 7.0 Albumin 3.2 Calcium Level 8.3 Alkaline Phosphatase 115 Aspartate Amino Transf (AST/SGOT) 14 Alanine Aminotransferase (ALT/SGPT) 14 Total Bilirubin 0.5 Sodium Level 141 Potassium Level 3.4 Chloride Level 110 Carbon Dioxide Level 23.8 Anion Gap 7 Estimat Glomerular Filtration Rate 140 Salicylates Level 5.6 Acetaminophen Level LESS THAN 2.0 Ethyl Alcohol Level LESS THAN 3 Urine Color YELLOW Urine Turbidity CLEAR Urine pH 6.0 Urine Specific [place] 1.027 Urine Protein 100 Urine Glucose (UA) NEG Urine Ketones TRACE Urine Occult Blood NEG Urine Nitrite NEG Urine Bilirubin NEG Urine Urobilinogen 2.0 Urine Leukocyte Esterase SMALL Urine RBC 1 Urine WBC 13 Urine Squamous Epithelial Cells 2 Microscopic Urinalysis Comment CULTURE INDICATED Urine Opiates Screen NEG Urine Barbiturates Screen NEG Urine Amphetamines Screen NEG Urine Benzodiazepines Screen NEG Urine Cocaine Screen NEG Urine Cannabinoids Screen POS Date/Time Source Procedure Growth Status 06/06/17 20:35 Urine Random Urine Urine Culture - Preliminary No growth. Resulted Result Diagram: 06/06/17 1620 06/06/17 1620 Assessment and Plan Problem List: (1) Suicidal ideation ICD Code: R45.851 - Suicidal ideations Status: Acute Assessment and Plan This is a 61-year-old male who was brought into the emergency department under Smith act secondary to suicidal ideations. Consultation was requested by his attending to evaluate and manage multiple medical conditions. Alcohol abuse. [facility] protocol. Patient counseled. Right AKA. Wd care Chronic right facial wound and bilateral buttock decubiti. Wound care Hypertension. Monitor BP. Clonidine as needed Tobacco abuse counseled. Abnormal head CT showing previous infarct. Start aspirin if patient agrees. Check lipid profile and A1c DVT prophylaxis with early ambulation Discussed Condition With Psychiatry staff Shant Vega MD Jun 07, 2017 13:31
[2017-06-07] MEDS: REMOVE OLD NICOTINE PATCH T-DERMAL SCH (21:00)
[2017-06-08 04:38] VITALS: BP 187/97; PULSE 65; RESP 15; TEMP 97.8; O2SAT 95
[2017-06-08 05:15] LABS: HDL CHOLESTEROL 31.2 MG/DL (40.0-60.0); LDL CHOLESTEROL 72 MG/DL (0-99)
[2017-06-08] MEDS: MULTIVITAMINS/MINERALS THERAPEUTIC TAB PO SCH (09:00)
[2017-06-08] MEDS: THIAMINE HCL 100 MG TAB PO SCH (09:00)
[2017-06-08] MEDS: NICOTINE 21 MG/24 HR PATCH T-DERMAL SCH (09:00)
[2017-06-08] MEDS: FOLIC ACID 1 MG TAB PO SCH (09:00)
--- NOTE | 2017-06-08 09:21 | HHI.PYPN ---
Subjective Remarks Patient seen for follow-up, chart reviewed. Patient noted to be lying in hospital bed asleep and reluctant to wake up for interview. Nursing reports was carried out with nursing staff which they stay patient continues to be uncooperative with evaluations and treatment, noted to be eating very well, continues to be belligerent to staff as well and did not want to cooperate with medical evaluation. Patient noted to be belligerent still stating "get out the fuck out of here". Patient states that he wanted to go back to [place] and when asked if he had anyone here in [place] as a support system he states he has no one here. Patient then refused to continue interview. Review of Systems ROS Limitations: Uncooperative, Refused Except as stated in HPI: all other systems reviewed are Neg Objective Alert: Yes [place]: Person Mood: Oppositional Affect: Other (congruent with mood) Memory Intact: Comment (did not assess) Hallucinations: Other (unable to assess due to patient not cooperating with interview) Delusions: No Delusion Type: Other (could not assess as patient did not cooperate with interview) Suicidal: Ideation (unable to assess due to patient not cooperating with interview) Homicidal: Ideation (unable to assess due to patient not cooperating with interview) Insight/Judgment Limited insight, poor impulse control and judgment Labs Test 06/08/17 04:19 Magnesium Level 2.0 MG/DL Triglycerides Level 76 MG/DL Cholesterol Level 118 MG/DL LDL Cholesterol 72 MG/DL HDL Cholesterol 31.2 MG/DL Cholesterol/HDL Ratio 3.78 RATIO Date/Time Source Procedure Growth Status 06/06/17 20:35 Urine Random Urine Urine Culture - Final 50-100,000 CFU/ML MIXED GRAM POSITIVE... Complete Vitals/IOs Vital Signs Date Time Temp Pulse Resp B/P (MAP) Pulse Ox O2 Delivery O2 Flow Rate FiO2 06/08/17 04:38 97.8 65 15 187/97 (554) 95 Assessment & Plan Problem List: (1) Alcohol use disorder ICD Codes: F10.99 - Alcohol use, unspecified with unspecified alcohol-induced disorder (2) Adjustment disorder with depressed mood ICD Codes: F43.21 - Adjustment disorder with depressed mood Assessment & Plan Patient at this time continues to be uncooperative, belligerent with staff and refusing evaluations by medical team. Patient noted to be slightly more cooperative in the afternoon as per nursing. Patient noted to be eating and drinking well and does not been noted to be disorganized by staff, responding to internal stimuli or any side effects symptoms of psychosis while under observation on the unit. We'll continue to monitor for safety with a possibility of discharging patient to the medical floor for further medical management as patient does not show endorse any acute psychiatric symptom aside from being uncooperative. Discharge planning in progress Justification for Cont. Inpt. At risk for further decompensation event lower level of care Michael Humphreys MD Jun 08, 2017 09:21
[2017-06-08] MEDS: cloNIDine HCL 0.1 MG TAB PO SCH ×2 (09:30→21:00)
[2017-06-08 11:41] LABS: HEMOGLOBIN A1b 1.7 %; HEMOGLOBIN Ao 85.3 %; HEMOGLOBIN P3 3.9 %
--- NOTE | 2017-06-08 14:44 | HHI.PR ---
Subjective Remarks Follow-up hypertension. Initially this and was conversant stating he wants to be discharged and get back to [place]. When I started asking about his alcohol use he asked me to leave and refused to answer more questions. Seen with RN Objective Vitals Vital Signs Date Time Temp Pulse Resp B/P (MAP) Pulse Ox O2 Delivery O2 Flow Rate FiO2 06/08/17 04:38 97.8 65 15 187/97 (127) 95 I/O 06/07/17 06/07/17 06/07/17 06/08/17 06/08/17 06/08/17 07:00 15:00 23:00 07:00 15:00 23:00 Intake Total 0 ml 480 ml 1200 ml Balance 0 ml 480 ml 1200 ml Intake Oral 0 ml 480 ml 1200 ml # Voids 1 1 Result Diagram: 06/06/17 1620 06/06/17 1620 Objective Remarks GENERAL: This is a well-nourished, well-developed patient, in no apparent distress. HEAD: Atraumatic. Normocephalic. EYES: Pupils equal round and reactive. Extraocular motions intact. No scleral icterus. No injection or drainage. Chronic wound with dark discoloration right infraorbital refused closer examination RESPIRATORY: Equal in expansion NEUROLOGICAL: Awake and alert. Cranial nerves II through XII intact. Moving all extremities A/P Problem List: (1) Suicidal ideation ICD Code: R45.851 - Suicidal ideations Status: Acute Assessment and Plan This is a 61-year-old male who was brought into the emergency department under Smith act secondary to suicidal ideations. Consultation was requested by his attending to evaluate and manage multiple medical conditions. Alcohol abuse. [place] protocol. Patient counseled. Right AKA. Wd care Chronic right facial wound and bilateral buttock decubiti. Wound care Hypertension. Remains uncontrolled start clonidine. Monitor BP Tobacco abuse counseled. Abnormal head CT showing previous infarct. Start aspirin if patient agrees. LDL 72 A1c 5.5 DVT prophylaxis with early ambulation Discharge Planning Limited evaluation as patient refused answering my questions Shant Vega MD Jun 08, 2017 14:44
[2017-06-08] MEDS: REMOVE OLD NICOTINE PATCH T-DERMAL SCH (21:00)
[2017-06-09 05:05] VITALS: BP 184/85; PULSE 67; RESP 17; TEMP 97.8; O2SAT 96
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
[2017-06-09] MEDS: MULTIVITAMINS/MINERALS THERAPEUTIC TAB PO SCH (09:00)
[2017-06-09] MEDS: cloNIDine HCL 0.1 MG TAB PO SCH ×2 (09:00→21:00)
[2017-06-09] MEDS: NICOTINE 21 MG/24 HR PATCH T-DERMAL SCH (09:00)
[2017-06-09] MEDS: THIAMINE HCL 100 MG TAB PO SCH (09:00)
[2017-06-09] MEDS: FOLIC ACID 1 MG TAB PO SCH (09:00)
--- NOTE | 2017-06-09 10:07 | HHI.PR ---
Subjective Remarks Follow-up CVA and hypertension. Patient continues to refuse medications. Advised he needs to be on anti-platelets with history of CVA. Also needs to control risk factors and especially hypertension. Discussed with RN Objective Vitals Vital Signs Date Time Temp Pulse Resp B/P (MAP) Pulse Ox O2 Delivery O2 Flow Rate FiO2 06/09/17 05:05 97.8 67 17 184/85 (118) 96 I/O 06/08/17 06/08/17 06/08/17 06/09/17 06/09/17 06/09/17 07:00 15:00 23:00 07:00 15:00 23:00 Intake Total 720 ml 360 ml Output Total 250 ml 500 ml Balance 470 ml -500 ml 360 ml Intake Oral 720 ml 360 ml Output Urine Total 250 ml 500 ml # Voids 1 Result Diagram: 06/06/17 1620 06/06/17 1620 Objective Remarks GENERAL: This is a well-nourished, well-developed patient, in no apparent distress. HEAD: Atraumatic. Normocephalic. EYES: Pupils equal round and reactive. Extraocular motions intact. No scleral icterus. No injection or drainage. Chronic wound with dark discoloration right infraorbital refused closer examination RESPIRATORY: Equal in expansion NEUROLOGICAL: Awake and alert. Cranial nerves II through XII intact. Moving all extremities A/P Problem List: (1) Suicidal ideation ICD Code: R45.851 - Suicidal ideations Status: Acute Assessment and Plan This is a 61-year-old male who was brought into the emergency department under Smith act secondary to suicidal ideations. Consultation was requested by his attending to evaluate and manage multiple medical conditions. Alcohol abuse. [place] protocol. Patient counseled. Right AKA. Wd care Chronic right facial wound and bilateral buttock decubiti. Wound care Hypertension. Remains uncontrolled refusing clonidine. Monitor BP Tobacco abuse counseled. Abnormal head CT showing previous infarct. Start aspirin patient advised. LDL 72 A1c 5.5. Risk factor modification DVT prophylaxis with early ambulation Discharge Planning Limited evaluation as patient has been difficult and refuses medical intervention. Will sign off. Reconsult once patient more compliant Shant Vega MD Jun 09, 2017 10:07
[2017-06-09] MEDS ORDERED: ASPI81TA11 PO (10:11)
[2017-06-09] MEDS: ASPIRIN EC 81 MG TABEC PO SCH (11:00)
[2017-06-09] MEDS: REMOVE OLD NICOTINE PATCH T-DERMAL SCH (21:00)
[2017-06-10 05:07] VITALS: BP 140/83; PULSE 61; RESP 16; TEMP 97.1; O2SAT 95
[2017-06-10] MEDS: FOLIC ACID 1 MG TAB PO SCH (09:00)
[2017-06-10] MEDS: NICOTINE 21 MG/24 HR PATCH T-DERMAL SCH (09:00)
[2017-06-10] MEDS: THIAMINE HCL 100 MG TAB PO SCH (09:00)
[2017-06-10] MEDS: ASPIRIN EC 81 MG TABEC PO SCH (09:00)
[2017-06-10] MEDS: cloNIDine HCL 0.1 MG TAB PO SCH ×2 (09:00→21:00)
[2017-06-10] MEDS: MULTIVITAMINS/MINERALS THERAPEUTIC TAB PO SCH (09:00)
--- NOTE | 2017-06-10 09:52 | HHI.PYPN ---
Subjective Remarks Patient's seen for follow-up, chart reviewed. Patient possibly in hospital bed eating breakfast and interviewed by check writer salesperson and therapist. Patient states that he would like to back to [place] to see his daughter and his grandchildren but does not have any contact number to reach her. He states that he has number of his sister Juliane which she provided to the team and states that he had left his previous [facility] but that his bank card and ID were missing. Patient denies any mood symptoms at this time noted to be irritable when questioned about perceptual disturbances stating "I'm not a crazy MF! Denies any SI or HI. Review of Systems Except as stated in HPI: all other systems reviewed are Neg Objective Alert: Yes [place]: Person Mood: Oppositional (less so today) Affect: Restricted Memory Intact: Comment (did not assess) Hallucinations: Other (unable to assess due to limited cooperation) Delusions: No Delusion Type: Other (unable to assess due to limited cooperation) Suicidal: Ideation (denies) Homicidal: Ideation (denies) Insight/Judgment Limited insight, poor impulse control and judgment Labs Date/Time Source Procedure Growth Status 06/06/17 20:35 Urine Random Urine Urine Culture - Final 50-100,000 CFU/ML MIXED GRAM POSITIVE... Complete Vitals/IOs Vital Signs Date Time Temp Pulse Resp B/P (MAP) Pulse Ox O2 Delivery O2 Flow Rate FiO2 06/10/17 05:07 97.1 61 16 140/83 (102) 95 Intake and Output 06/10/17 06/10/17 06/11/17 08:00 16:00 00:00 Intake Total 360 ml Output Total 820 ml Balance -820 ml 360 ml Assessment & Plan Problem List: (1) Alcohol use disorder ICD Codes: F10.99 - Alcohol use, unspecified with unspecified alcohol-induced disorder (2) Adjustment disorder with depressed mood ICD Codes: F43.21 - Adjustment disorder with depressed mood Assessment & Plan Patient still noted to be irritable and superficially cooperative with staff but noted to have slightly improved hygiene today. Patient request help to be O2 reacquire his identification and bank card with plans of possibly going to [place] to find his daughter. Patient unlikely willing to return back to [facility]. Patient denies any mood or psychotic symptoms at this time although patient is superficially cooperative with interview. We'll continue to monitor mood and behavior. Discharge planning in progress Justification for Cont. Inpt. At risk for further decompensation if at lower level of care Michael Humphreys MD Jun 10, 2017 09:52
[2017-06-10 19:54] VITALS: PULSE 71; RESP 16; TEMP 99; O2SAT 95
[2017-06-10] MEDS: REMOVE OLD NICOTINE PATCH T-DERMAL SCH (21:00)
[2017-06-11] MEDS ORDERED: QUEtiapine FUMARATE 25 MG TAB PO SCH (01:15)
[2017-06-11] MEDS ORDERED: QUEtiapine FUMARATE 25 MG TAB PO PRN (01:45)
[2017-06-11 06:00] VITALS: BP 182/93; PULSE 64; RESP 17; TEMP 99; O2SAT 97
[2017-06-11] MEDS: THIAMINE HCL 100 MG TAB PO SCH (09:00)
[2017-06-11] MEDS: cloNIDine HCL 0.1 MG TAB PO SCH ×2 (09:00→21:00)
[2017-06-11] MEDS: NICOTINE 21 MG/24 HR PATCH T-DERMAL SCH (09:00)
[2017-06-11] MEDS: MULTIVITAMINS/MINERALS THERAPEUTIC TAB PO SCH (09:00)
[2017-06-11] MEDS: FOLIC ACID 1 MG TAB PO SCH (09:00)
[2017-06-11] MEDS: ASPIRIN EC 81 MG TABEC PO SCH (09:00)
--- NOTE | 2017-06-11 10:24 | HHI.PYPN ---
Subjective Remarks Patient seen for follow-up, chart reviewed. Patient found lying on hospital bed , guarded and superficially cooperative with interview. Patient states that he will not take medications despite explaining the risks and benefits. He states that he simply does not like taking pills and that he is aware that his blood pressure is elevated "my blood pressure is always high!". Patient states that he would like to go to [place] but as per collateral information from patient's sister, patient on a prior experience did not do well there. Patient refuses correction placement but is considering LONG-TERM. Patient denies perceptual disturbances at this time. Review of Systems Except as stated in HPI: all other systems reviewed are Neg Objective Alert: Yes [place]: Person Mood: Oppositional (less so today) Affect: Other (guarded) Memory Intact: Comment (did not assess) Hallucinations: Other (denies) Delusions: No Delusion Type: Other (unable to assess due to limited cooperation) Suicidal: Ideation (denies) Homicidal: Ideation (denies) Insight/Judgment limited insight, impulse control and judgment Labs Date/Time Source Procedure Growth Status 06/06/17 20:35 Urine Random Urine Urine Culture - Final 50-100,000 CFU/ML MIXED GRAM POSITIVE... Complete Vitals/IOs Vital Signs Date Time Temp Pulse Resp B/P (MAP) Pulse Ox O2 Delivery O2 Flow Rate FiO2 06/11/17 06:00 99.0 64 17 182/93 (122) 97 Intake and Output 06/11/17 06/11/17 06/12/17 08:00 16:00 00:00 Intake Total 480 ml Output Total 600 ml Balance -600 ml 480 ml Assessment & Plan Problem List: (1) Alcohol use disorder ICD Codes: F10.99 - Alcohol use, unspecified with unspecified alcohol-induced disorder (2) Adjustment disorder with depressed mood ICD Codes: F43.21 - Adjustment disorder with depressed mood Assessment & Plan Patient continues to be superficially cooperative, continues to refuse medications, at this time considering LONG-TERM. Continue to monitor mood and behavior. Discharge planning in progress. Justification for Cont. Inpt. At risk for further decompensation if at lower level of care. Michael Humphreys MD Jun 11, 2017 10:24
[2017-06-11 17:26] VITALS: BP 215/89; RESP 16; TEMP 97.2; O2SAT 98
[2017-06-11] MEDS: REMOVE OLD NICOTINE PATCH T-DERMAL SCH (21:00)
[2017-06-12] MEDS: LORazepam 2 MG/ML VIAL IM PRN ×2 (03:16→16:31)
[2017-06-12 05:02] VITALS: BP 213/92; PULSE 84; RESP 16; TEMP 97.4; O2SAT 98
[2017-06-12] MEDS: FOLIC ACID 1 MG TAB PO SCH (08:38)
[2017-06-12] MEDS: ASPIRIN EC 81 MG TABEC PO SCH (08:38)
[2017-06-12] MEDS: MULTIVITAMINS/MINERALS THERAPEUTIC TAB PO SCH (08:39)
[2017-06-12] MEDS: THIAMINE HCL 100 MG TAB PO SCH (08:39)
[2017-06-12] MEDS: NICOTINE 21 MG/24 HR PATCH T-DERMAL SCH (08:39)
[2017-06-12] MEDS: cloNIDine HCL 0.1 MG TAB PO SCH ×2 (09:00→20:46)
[2017-06-12 09:02] VITALS: BP 150/105; PULSE 75
--- NOTE | 2017-06-12 13:28 | PD.TTN ---
Patient Problems 1. Discharge planning 2. Medication compliance 3. Knowledge deficit 4. Lack of coping skills Progress Toward Goals Provider Present: Dr. Augusto Humphreys Provider Input: Per doctor patient refuses to take his medications despite explaining the risks and benefits patient has been made aware that his blood pressure is elevated "my blood pressure is always high! Nurse(s) Present: JANIS Hartman Nurse(s) Input: Patient is refusing all medication, he is eating meals with limited to no appropriate feedback. Psychiatric Counselors Present: HORACIO Moses Psych Therapist Input: Patient refuses NH placement, and has not confirm he is willing to speak with a facility provider from an [facility] Group Spec/RT/OT/PERAZA Present: [facility] OT Group Spec/RT/OT/PERAZA Input: Patient refuses to participate with groups or activities Documentation Scribe: HORACIO Moses Sandra LMHC Jun 12, 2017 13:28
--- NOTE | 2017-06-12 17:27 | HHI.PYPN ---
Subjective Remarks Patient seen for follow-up, chart reviewed. Patient found lying in hospital bed superficial cooperative interview., Superficially cooperative in interview. Patient continues to refuse medications stating that he does not need any "fdottie pills". Patient states continues to consider accepting to go to an assisted living facility. Patient became irritated when provided that he was initially under Smith act for having stated wanting to end his life or hurt himself which she stated that he was not crazy and had never said that to the police. Patient at this time denies any SI, HI, perceptual disturbances or delusions. Patient continued to be perseverative on having lost his ID and benefits card. Review of Systems Except as stated in HPI: all other systems reviewed are Neg Mental Status Examination Speech: Other (yelling at times) Orientation: Person Memory: Unremarkable (unable to assess) Suicidal Ideation: Yes (as per Smith act but unable to assess at time of interview) Previous Suicide Attempts: No (none as per record) Homicidal Ideation: No Previous Homicide Attempts: No Mood: Irritable Results Labs Date/Time Source Procedure Growth Status 06/06/17 20:35 Urine Random Urine Urine Culture - Final 50-100,000 CFU/ML MIXED GRAM POSITIVE... Complete Vitals/IOs Vital Signs Date Time Temp Pulse Resp B/P (MAP) Pulse Ox O2 Delivery O2 Flow Rate FiO2 06/12/17 09:02 75 150/105 (120) 06/12/17 05:02 97.4 16 98 Intake and Output 06/12/17 06/12/17 06/13/17 08:00 16:00 00:00 Intake Total 240 ml Balance 240 ml Assessment & Plan Problem List: (1) Alcohol use disorder ICD Codes: F10.99 - Alcohol use, unspecified with unspecified alcohol-induced disorder (2) Adjustment disorder with depressed mood ICD Codes: F43.21 - Adjustment disorder with depressed mood Assessment & Plan Patient at this time continues to refuse medical treatment and aware that he has no place to live and at this time considering accepting to be referred to an assisted living facility but he has not confirmed wanting to go there. If patient refuses referral to an assisted living facility will likely need return to a detention as there is concern that patient is unable to care for himself due to his medical conditions. Discharge planning in progress Justification for Cont. Inpt. At risk for further decompensation if at lower level of care Michael Humphreys MD Jun 12, 2017 17:27
[2017-06-12 19:18] VITALS: BP 164/91; PULSE 105; RESP 17; TEMP 98.7; O2SAT 97
[2017-06-12] MEDS: REMOVE OLD NICOTINE PATCH T-DERMAL SCH (21:00)
[2017-06-13 07:35] VITALS: BP 182/88; PULSE 60; RESP 18; TEMP 97.6; O2SAT 98
[2017-06-13] MEDS: cloNIDine HCL 0.1 MG TAB PO SCH (08:00)
[2017-06-13] MEDS: THIAMINE HCL 100 MG TAB PO SCH (08:01)
[2017-06-13] MEDS: ASPIRIN EC 81 MG TABEC PO SCH (08:01)
[2017-06-13] MEDS: NICOTINE 21 MG/24 HR PATCH T-DERMAL SCH (08:01)
[2017-06-13] MEDS ORDERED: GNP100TA3 PO (10:07)
[2017-06-13] MEDS ORDERED: ASPI-99 PO (10:07)
[2017-06-13] MEDS ORDERED: CLON.1 PO (10:07)
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
== END 2017-06-13 11:50 | disposition home or self-care (01) | DRG 881 ==
LOC: NEDAMB 15:28 → NEDA 21:23 → H4EA 21:45
PROVIDERS: ADMIT Student in an Organized Health Care Education/Training Program; ATTEND Student in an Organized Health Care Education/Training Program
DX: F43.21 Adjustment disorder with depressed mood (principal); L89.312 Pressure ulcer of right buttock, stage 2; L89.322 Pressure ulcer of left buttock, stage 2; Z89.611 Acquired absence of right leg above knee; F10.99 Alcohol use, unspecified with unspecified alcohol-induced disorder; Z59.0 Homelessness; F41.9 Anxiety disorder, unspecified; I10 Essential (primary) hypertension; F17.200 Nicotine dependence, unspecified, uncomplicated; Z99.3 Dependence on wheelchair
CPT/HCPCS: 80053; 80061; 80307; 81001; 83036; 83735; 85025; 87086; J1630; J2060; Q0163

== ENCOUNTER 2017-06-13 20:52 | Emergency (ER) | payer MEDICARE, OTHER ==
[~2017-06-13] VITALS: Ht 177.8 cm; Wt 65.0 kg
[~2017-06-13 20:52] MED LIST: ASPI-99 PO; ASPI81TA11 PO; CLON.1 PO; GNP100TA3 PO
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
[2017-06-13] MEDS ORDERED: KETOROLAC TROMETHAMINE 30 MG/ML (IVP) VIAL IV PUSH ONE (21:15)
[2017-06-13] MEDS ORDERED: SODIUM CHLOR 0.9% 1000 ML INJ 1,000 ML IV ONE (21:15)
[2017-06-13 21:39] LABS: AUTOMATED NEUTROPHIL # 8.2 TH/MM3 (1.8-7.7); BASOPHIL # 0.1 TH/MM3 (0-0.2); BASOPHIL % 0.7 % (0.0-2.0); EOSINOPHIL # 0.1 TH/MM3 (0-0.4); EOSINOPHIL % 1.1 % (0.0-4.0); HEMATOCRIT 40.2 % (39.0-51.0); HEMO FLAGS DIFF FINAL; LYMPH % 18.1 % (9.0-44.0); LYMPHOCYTE # 2.1 TH/MM3 (1.0-4.8); MEAN CELL VOLUME 87.9 FL (80.0-100.0); MEAN CORPUSCULAR HEMOGLOBIN 29.7 PG (27.0-34.0); MEAN CORPUSCULAR HGB CONC 33.8 % (32.0-36.0); MONO % 8.5 % (0.0-8.0); NEUT % 71.6 % (16.0-70.0); PLATELET COUNT 372 TH/MM3 (150-450); RED BLOOD COUNT 4.57 MIL/MM3 (4.50-5.90); RED CELL DISTRIBUTION WIDTH 16.2 % (11.6-17.2); WHITE BLOOD COUNT 11.4 TH/MM3 (4.0-11.0)
[2017-06-13 22:04] LABS: ALT (GPT) 19 U/L (12-78)
[2017-06-13 22:10] LABS: ALKALINE PHOSPHATASE 115 U/L (45-117); ANION GAP 4 MEQ/L (5-15); AST (GOT) 34 U/L (15-37); BICARBONATE 27.7 MEQ/L (21.0-32.0); BLOOD UREA NITROGEN 20 MG/DL (7-18); CHLORIDE 102 MEQ/L (98-107); CREATINE KINASE 183 U/L (39-308); GLOMERULAR FILTRATION RATE 125 ML/MIN (>89); SODIUM (NA) 134 MEQ/L (136-145); TOTAL BILIRUBIN ADULT 0.3 MG/DL (0.2-1.0)
[2017-06-13 22:14] LABS: ALCOHOL LESS THAN 3 MG/DL (0-5); POTASSIUM 5.4 MEQ/L (3.5-5.1)
[2017-06-13 22:53] VITALS: BP 134/78; PULSE 88; RESP 16; TEMP 98.8; O2SAT 97
[2017-06-13 23:31] VITALS: RESP 16
== END 2017-06-14 01:05 | disposition home or self-care (01) ==
LOC: NEPE 20:52
DX: M79.605 Pain in left leg (principal); I10 Essential (primary) hypertension; Z72.0 Tobacco use; Z99.3 Dependence on wheelchair; Z79.899 Other long term (current) drug therapy
CPT/HCPCS: 80053; 80307; 82550; 85025; 96361; 96374; 99284; J1885; J7030

== ENCOUNTER 2017-08-14 21:59 | Inpatient (IN) | payer MEDICARE, OTHER ==
[~2017-08-14] VITALS: Ht 177.8 cm; Wt 56.8 kg
[~2017-08-14 21:59] MED LIST changes: -ASPI-99 PO; +ASPI1TAB56 PO; -ASPI81TA11 PO; +ASPI81TA23 PO; -GNP100TA3 PO; +THIA100 PO
[2017-08-14 22:27] VITALS: BP 228/112; PULSE 76; RESP 16; TEMP 98.9; O2SAT 100
--- NOTE | 2017-08-14 22:44 | PD ---
HPI Chief Complaint: Medical Clearance Time Seen by Provider: 22:40 Travel History International Travel<30 days: No Contact w/Intl Traveler<30days: No Traveled to known affect area: No History of Present Illness HPI 61-year-old male presents after being transferred from [facility]. He has no current paperwork from [facility] that explains his history of present illness. The nurse called [facility] and they reported that the patient was on suicide watch in halfway. He was released from halfway today to [facility] however he was felt to be beyond her scope of care and so they sent him here. In regards to specifically how he was outside of their scope of care this information was not elicited. On examination of the patient he has a very poor historian so history is limited. He has a very scattered and disorganized thought process. He is noted to be hypertensive. It appears that he was admitted psychiatrically in May of this year. No other complaints. PFSH Past Medical History Diminished Hearing: No Hypertension: Yes Musculoskeletal: Yes (R AKA) Immunizations Current: No Social History Alcohol Use: Yes (Slava Beam "all the time") Tobacco Use: Yes (cigars 1 ppd) Allergies-Medications (Allergen,Severity, Reaction): Coded Allergies: No Known Allergies (Unverified Adverse Reaction, Unknown, 08/14/17) Reported Meds & Prescriptions Reported Meds & Active Scripts Active Adult Aspirin EC Low Strength (Aspirin) 81 Mg Tabec 81 Mg PO DAILY 30 Days Catapres (Clonidine) 0.1 Mg Tab 0.1 Mg PO Q12HR 30 Days Gnp Vitamin B-1 (Thiamine HCl) 100 Mg Tab 100 Mg PO DAILY 30 Days Aspirin EC (Aspirin) 81 Mg Tabdr 81 Mg PO DAILY Review of Systems Except as stated in HPI: all other systems reviewed are Neg Physical Exam Narrative GENERAL: Disheveled male in no acute distress. He is noted to be hypertensive. SKIN: Warm and dry. HEAD: Atraumatic. Normocephalic. EYES: Pupils equal and round. No scleral icterus. No injection or drainage. ENT: No nasal bleeding or discharge. Mucous membranes pink and moist. NECK: Trachea midline. No JVD. CARDIOVASCULAR: Regular rate and rhythm. No murmur appreciated. RESPIRATORY: No accessory muscle use. Clear to auscultation. Breath sounds equal bilaterally. GASTROINTESTINAL: Abdomen soft, non-tender, nondistended. Hepatic and splenic margins not palpable. MUSCULOSKELETAL: No obvious deformities. Right BKA. NEUROLOGICAL: Awake and alert. No obvious cranial nerve deficits. Motor grossly within normal limits. Normal speech. PSYCHIATRIC: Bizarre, agitated, insight and judgment appear very limited. Data Data Last Documented VS Vital Signs Date Time Temp Pulse Resp B/P (MAP) Pulse Ox O2 Delivery O2 Flow Rate FiO2 08/15/17 02:19 85 16 143/71 (95) 95 Room Air 08/14/17 22:27 98.9 Orders Orders Complete Blood Count With Diff (08/14/17 22:44) Comprehensive Metabolic Panel (08/14/17 22:44) Psych Screen (08/14/17 22:44) Drug Screen, Random Urine (08/14/17 22:44) Alcohol (Ethanol) (08/14/17 22:44) Salicylates (Aspirin) (08/14/17 22:44) Tylenol (Acetaminophen) (08/14/17 22:44) Labetalol Inj (Trandate Inj) (08/14/17 22:45) Ct Brain W/O Iv Contrast(Rout) (08/14/17 ) Lorazepam Inj (Ativan Inj) (08/14/17 23:00) Clonidine (Catapres) (08/15/17 00:45) Labs Laboratory Tests Test 08/14/17 23:32 08/15/17 01:05 White Blood Count 8.3 TH/MM3 Red Blood Count 4.58 MIL/MM3 Hemoglobin 13.3 GM/DL Hematocrit 39.7 % Mean Corpuscular Volume 86.6 FL Mean Corpuscular Hemoglobin 29.1 PG Mean Corpuscular Hemoglobin Concent 33.6 % Red Cell Distribution Width 15.0 % Platelet Count 306 TH/MM3 Mean Platelet Volume 8.0 FL Neutrophils (%) (Auto) 59.8 % Lymphocytes (%) (Auto) 26.7 % Monocytes (%) (Auto) 10.0 % Eosinophils (%) (Auto) 2.5 % Basophils (%) (Auto) 1.0 % Neutrophils # (Auto) 5.0 TH/MM3 Lymphocytes # (Auto) 2.2 TH/MM3 Monocytes # (Auto) 0.8 TH/MM3 Eosinophils # (Auto) 0.2 TH/MM3 Basophils # (Auto) 0.1 TH/MM3 CBC Comment DIFF FINAL Differential Comment Blood Urea Nitrogen 18 MG/DL Creatinine 0.57 MG/DL Random Glucose 81 MG/DL Total Protein 7.2 GM/DL Albumin 3.4 GM/DL Calcium Level 8.7 MG/DL Alkaline Phosphatase 135 U/L Aspartate Amino Transf (AST/SGOT) 18 U/L Alanine Aminotransferase (ALT/SGPT) 24 U/L Total Bilirubin 0.2 MG/DL Sodium Level 144 MEQ/L Potassium Level 4.1 MEQ/L Chloride Level 108 MEQ/L Carbon Dioxide Level 28.6 MEQ/L Anion Gap 7 MEQ/L Estimat Glomerular Filtration Rate 146 ML/MIN Salicylates Level LESS THAN 1.7 MG/DL Acetaminophen Level LESS THAN 2.0 MCG/ML Ethyl Alcohol Level LESS THAN 3 MG/DL Urine Opiates Screen NEG Urine Barbiturates Screen NEG Urine Amphetamines Screen NEG Urine Benzodiazepines Screen NEG Urine Cocaine Screen NEG Urine Cannabinoids Screen NEG MDM Medical Decision Making Medical Screen Exam Complete: Yes Emergency Medical Condition: Yes Medical Record Reviewed: Yes Differential Diagnosis Schizophrenia, schizoaffective disorder, hypertensive emergency, encephalopathy , meningitis Narrative Course 61-year-old male was sent here from [facility] because he was felt to be outside of their scope of care. Upon examination the patient is found to be bizarre with disorganized thought pattern. He was therefore placed under Smith act by Dr. Jaramillo. He is also noted to be hypertensive. He was given I will IV labetalol with improvement of his symptoms. He was later given a dose of oral clonidine with normalization of his blood pressure. CT the brain reveals large stable area of encephalomalacia involving left middle cerebral artery territory consistent with an area of infarction. No acute infarction identified. Laboratory is unremarkable. Mental health screening discussed with the patient. Psychiatric screen ordered. The patient is medically cleared for psychiatric disposition. Diagnosis Primary Impression: Unspecified psychosis Bertin Ellison Aug 14, 2017 22:44
[2017-08-14] MEDS ORDERED: LABETALOL HCL 100 MG/20 ML VIAL IV PUSH ONE (22:45)
[2017-08-14] MEDS ORDERED: LORazepam 2 MG/ML VIAL IV PUSH ONE (23:00)
[2017-08-14 23:45] LABS: BASOPHIL # 0.1 TH/MM3 (0-0.2); EOSINOPHIL # 0.2 TH/MM3 (0-0.4); EOSINOPHIL % 2.5 % (0.0-4.0); HEMATOCRIT 39.7 % (39.0-51.0); HEMOGLOBIN 13.3 GM/DL (13.0-17.0); LYMPH % 26.7 % (9.0-44.0); LYMPHOCYTE # 2.2 TH/MM3 (1.0-4.8); MEAN CELL VOLUME 86.6 FL (80.0-100.0); MEAN CORPUSCULAR HEMOGLOBIN 29.1 PG (27.0-34.0); MEAN CORPUSCULAR HGB CONC 33.6 % (32.0-36.0); MONOCYTE # 0.8 TH/MM3 (0-0.9); NEUT % 59.8 % (16.0-70.0); PLATELET COUNT 306 TH/MM3 (150-450); RED BLOOD COUNT 4.58 MIL/MM3 (4.50-5.90); WHITE BLOOD COUNT 8.3 TH/MM3 (4.0-11.0)
[2017-08-15] VITALS (9 sets, daily range): BP systolic 143–200; BP diastolic 63–104; PULSE 61–89; RESP 14–22; TEMP 99.2; O2SAT 94–99
[2017-08-15 00:14] LABS: ALBUMIN 3.4 GM/DL (3.4-5.0); ALT (GPT) 24 U/L (12-78); AST (GOT) 18 U/L (15-37); BICARBONATE 28.6 MEQ/L (21.0-32.0); BLOOD UREA NITROGEN 18 MG/DL (7-18); CALCIUM 8.7 MG/DL (8.5-10.1); CHLORIDE 108 MEQ/L (98-107); CREATININE 0.57 MG/DL (0.60-1.30); GLOMERULAR FILTRATION RATE 146 ML/MIN (>89); GLUCOSE,RANDOM 81 MG/DL (74-106); SODIUM (NA) 144 MEQ/L (136-145)
[2017-08-15 00:15] LABS: ALKALINE PHOSPHATASE 135 U/L (45-117); TOTAL BILIRUBIN ADULT 0.2 MG/DL (0.2-1.0); TOTAL PROTEIN 7.2 GM/DL (6.4-8.2)
[2017-08-15 00:27] LABS: ACETAMINOPHEN LESS THAN 2.0 MCG/ML (10.0-30.0)
--- NOTE | 2017-08-15 00:43 | RADRPT ---
EXAM DATE/TIME: 08/15/2017 00:23 [facility] COMPARISON: CT BRAIN W/O CONTRAST, May 30, 2017, 14:51. INDICATIONS : Altered mental status. RADIATION DOSE: 56.35 CTDIvol (mGy) MEDICAL HISTORY : Non-responsive. SURGICAL HISTORY : Non-responsive. ENCOUNTER: Initial ACUITY: 1 day PAIN SCALE: Non-responsive LOCATION: cranial TECHNIQUE: Multiple contiguous axial images were obtained of the head. Using automated exposure control and adj ustment of the mA and/or kV according to patient size, radiation dose was kept as low as reasonably a chievable to obtain optimal diagnostic quality images. DICOM format image data is available electro nically for review and comparison. FINDINGS: There is a large stable area encephalomalacia involving the left middle cerebral artery territor y involving portions of the frontal, parietal and temporal lobes. There is ex vacuo change involving the left lateral ventricle is stable. Diffuse atrophic changes are noted with sulcal and ventricular prominence. There is no acute hemorrhage, mass effect or midline shift. No extra-axial fluid collecti ons are identified. The posterior fossa and brainstem are unremarkable. Mild mucosal thickening is no madeline in the right maxillary sinus. The study is degraded by motion artifact. CONCLUSION: 1. Large stable area of encephalomalacia involving the left middle cerebral artery territory consiste nt with an area of infarction. 2. No acute hemorrhage, mass or acute infarction identified. Gopal Mendez MD on August 15, 2017 at 0:39 Board Certified Radiologist. This report was verified electronically.
[2017-08-15] MEDS ORDERED: cloNIDine HCL 0.2 MG TAB PO ONE (00:45)
[2017-08-15] MEDS ORDERED: ACETAMINOPHEN 500 MG CPLT PO ONE (04:15)
[2017-08-15] MEDS ORDERED: NAPROXEN 500 MG TAB PO ONE (05:30)
--- NOTE | 2017-08-15 14:15 | PD ---
History of Present Illness Chief Complaint: Medical Clearance Time Seen by Provider: 13:45 Travel History International Travel<30 Days: No Contact w/Intl Traveler<30days: No Known affected area: No Legal Status Legal Status: Smith Act History of Present Illness: 63-year-old man placed under a Smith act by ED physician for psychosis. However , patient is 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 He has significant cognitive difficulties as a result of encephalomalacia, most likely the result of alcoholism. (The patient reports a significant history of drinking Slava Plummer.) Patient is sometimes disorganized in his thought process and he was able to communicate adequately with this physician and nurse Josef. Patient wants to return to [place] where he has family. Patient wants to eat lunch. Patient wants coffee. Patient wants to watch television. He did not exhibit actual psychotic thinking. This physician does note he is an amputee and he was recently released from senior care. He appears to be a placement problem. There is no psychiatric treatment that is felt would be helpful to this patient. PFSH Past Medical History Medical History: Unable to Obtain Dementia: Yes Diminished Hearing: No Hypertension: Yes Musculoskeletal: Yes (R AKA) Immunizations Current: No Past Surgical History Surgical History: Unable to Obtain Psychiatric History Psychiatric History Hx Psychiatric Treatment: Patient's current or past mental health treatment is unknown at the time of this assessment. History of Inpatient Treatment: No Guns or firearms in home: No Social History Hx Alcohol Use: Yes (Slava Beam "all the time") Hx Tobacco Use: Yes (cigars 1 ppd) Hx Substance Use: Yes (marijuana) Substance Use Type: Alcohol, Marijuana Hx of Substance Use Treatment: No Allergies-Medications (Allergen,Severity, Reaction): Coded Allergies: No Known Allergies (Unverified Adverse Reaction, Unknown, 08/14/17) Reported Meds & Prescriptions Reported Meds & Active Scripts Active Adult Aspirin EC Low Strength (Aspirin) 81 Mg Tabec 81 Mg PO DAILY 30 Days Catapres (Clonidine) 0.1 Mg Tab 0.1 Mg PO Q12HR 30 Days Gnp Vitamin B-1 (Thiamine HCl) 100 Mg Tab 100 Mg PO DAILY 30 Days Aspirin EC (Aspirin) 81 Mg Tabdr 81 Mg PO DAILY Review of Systems Except as stated in HPI: all other systems reviewed are Neg Mental Status Examination Appearance: Disheveled Consciousness: Alert Orientation: Person, Place, Situation Motor Activity: Abnormal gait Speech: Hesitant, Slow, Speech impediment Language: Adequate Fund of Knowledge: Adequate Attention and Concentration: Inadequate Memory: Impaired Mood: Irritable Affect: Other Thought Process & Associations: Other Thought Content: Other Hallucination Type: None Delusion Type: None Suicidal Ideation: No Suicidal Plan: No Suicidal Intention: No Homicidal Ideation: No Homicidal Plan: No Homicidal Intention: No Insight: Fair Judgment: Impulsive MDM Medical Decision Making Medical Record Reviewed: Yes Assessment/Plan 61-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 Patient most likely has encephalomalacia as a result of alcoholism. This physician and psychiatry do not feel we have anything to offer this man. He appears to have been sent here from [facility] ([facility] This physician feels he is a case management problem as he would like to return home and has limited ability to care for himself, due to his amputation and his cognitive deficits. Orders Orders Complete Blood Count With Diff (08/14/17 22:44) Comprehensive Metabolic Panel (08/14/17 22:44) Psych Screen (08/14/17 22:44) Drug Screen, Random Urine (08/14/17 22:44) Alcohol (Ethanol) (08/14/17 22:44) Salicylates (Aspirin) (08/14/17 22:44) Tylenol (Acetaminophen) (08/14/17 22:44) Labetalol Inj (Trandate Inj) (08/14/17 22:45) Ct Brain W/O Iv Contrast(Rout) (08/14/17 ) Lorazepam Inj (Ativan Inj) (08/14/17 23:00) Clonidine (Catapres) (08/15/17 00:45) Acetaminophen (Tylenol) (08/15/17 04:15) Naproxen (Naprosyn) (08/15/17 05:30) Diet Regular Basic (08/15/17 Breakfast) Results Vital Signs Date Time Temp Pulse Resp B/P (MAP) Pulse Ox O2 Delivery O2 Flow Rate FiO2 08/15/17 13:43 68 22 200/101 (134) 97 Room Air 08/15/17 09:10 61 14 145/63 (90) 99 Room Air 08/15/17 05:44 89 16 169/91 (117) 95 Room Air 08/15/17 02:19 85 16 143/71 (95) 95 Room Air 08/15/17 00:31 85 18 194/104 (134) 96 Room Air 08/14/17 22:27 98.9 76 16 228/112 (150) 100 Room Air Laboratory Tests Test 08/14/17 23:32 08/15/17 01:05 White Blood Count 8.3 Red Blood Count 4.58 Hemoglobin 13.3 Hematocrit 39.7 Mean Corpuscular Volume 86.6 Mean Corpuscular Hemoglobin 29.1 Mean Corpuscular Hemoglobin Concent 33.6 Red Cell Distribution Width 15.0 Platelet Count 306 Mean Platelet Volume 8.0 Neutrophils (%) (Auto) 59.8 Lymphocytes (%) (Auto) 26.7 Monocytes (%) (Auto) 10.0 Eosinophils (%) (Auto) 2.5 Basophils (%) (Auto) 1.0 Neutrophils # (Auto) 5.0 Lymphocytes # (Auto) 2.2 Monocytes # (Auto) 0.8 Eosinophils # (Auto) 0.2 Basophils # (Auto) 0.1 CBC Comment DIFF FINAL Differential Comment Blood Urea Nitrogen 18 Creatinine 0.57 Random Glucose 81 Total Protein 7.2 Albumin 3.4 Calcium Level 8.7 Alkaline Phosphatase 135 Aspartate Amino Transf (AST/SGOT) 18 Alanine Aminotransferase (ALT/SGPT) 24 Total Bilirubin 0.2 Sodium Level 144 Potassium Level 4.1 Chloride Level 108 Carbon Dioxide Level 28.6 Anion Gap 7 Estimat Glomerular Filtration Rate 146 Salicylates Level LESS THAN 1.7 Acetaminophen Level LESS THAN 2.0 Ethyl Alcohol Level LESS THAN 3 Urine Opiates Screen NEG Urine Barbiturates Screen NEG Urine Amphetamines Screen NEG Urine Benzodiazepines Screen NEG Urine Cocaine Screen NEG Urine Cannabinoids Screen NEG Diagnosis Primary Impression: Dementia associated with alcoholism Ozzie Koroma MD Aug 15, 2017 14:15
[2017-08-15] MEDS ORDERED: ONDANSETRON HCL 4 MG/2 ML VIAL IVP PRN (17:15)
[2017-08-15] MEDS ORDERED: NALOXONE HCL 0.4 MG/ML AMP IV PUSH PRN (17:15)
[2017-08-15] MEDS ORDERED: SENNOSIDES 8.6 MG TAB PO PRN (17:15)
[2017-08-15] MEDS ORDERED: LACTULOSE SYRUP 20 GM/30 ML CUP PO PRN (17:15)
[2017-08-15] MEDS ORDERED: MAGNESIUM HYDROXIDE SUSP 30 ML CUP PO PRN (17:15)
[2017-08-15] MEDS ORDERED: SODIUM CHLORIDE 0.9% FLUSH 10 ML FLUSH IV FLUSH PRN (17:15)
[2017-08-15] MEDS ORDERED: BISACODYL 10 MG SUPP RECTAL PRN (17:15)
--- NOTE | 2017-08-15 17:23 | PD ---
Data Data Last Documented VS Vital Signs Date Time Temp Pulse Resp B/P (MAP) Pulse Ox O2 Delivery O2 Flow Rate FiO2 08/15/17 13:43 68 22 200/101 (134) 97 Room Air 08/14/17 22:27 98.9 Orders Orders Complete Blood Count With Diff (08/14/17 22:44) Comprehensive Metabolic Panel (08/14/17 22:44) Psych Screen (08/14/17 22:44) Drug Screen, Random Urine (08/14/17 22:44) Alcohol (Ethanol) (08/14/17 22:44) Salicylates (Aspirin) (08/14/17 22:44) Tylenol (Acetaminophen) (08/14/17 22:44) Labetalol Inj (Trandate Inj) (08/14/17 22:45) Ct Brain W/O Iv Contrast(Rout) (08/14/17 ) Lorazepam Inj (Ativan Inj) (08/14/17 23:00) Clonidine (Catapres) (08/15/17 00:45) Acetaminophen (Tylenol) (08/15/17 04:15) Naproxen (Naprosyn) (08/15/17 05:30) Diet Regular Basic (08/15/17 Breakfast) Admit Order (Ed Use Only) (08/15/17 ) Labs Laboratory Tests Test 08/14/17 23:32 08/15/17 01:05 White Blood Count 8.3 TH/MM3 Red Blood Count 4.58 MIL/MM3 Hemoglobin 13.3 GM/DL Hematocrit 39.7 % Mean Corpuscular Volume 86.6 FL Mean Corpuscular Hemoglobin 29.1 PG Mean Corpuscular Hemoglobin Concent 33.6 % Red Cell Distribution Width 15.0 % Platelet Count 306 TH/MM3 Mean Platelet Volume 8.0 FL Neutrophils (%) (Auto) 59.8 % Lymphocytes (%) (Auto) 26.7 % Monocytes (%) (Auto) 10.0 % Eosinophils (%) (Auto) 2.5 % Basophils (%) (Auto) 1.0 % Neutrophils # (Auto) 5.0 TH/MM3 Lymphocytes # (Auto) 2.2 TH/MM3 Monocytes # (Auto) 0.8 TH/MM3 Eosinophils # (Auto) 0.2 TH/MM3 Basophils # (Auto) 0.1 TH/MM3 CBC Comment DIFF FINAL Differential Comment Blood Urea Nitrogen 18 MG/DL Creatinine 0.57 MG/DL Random Glucose 81 MG/DL Total Protein 7.2 GM/DL Albumin 3.4 GM/DL Calcium Level 8.7 MG/DL Alkaline Phosphatase 135 U/L Aspartate Amino Transf (AST/SGOT) 18 U/L Alanine Aminotransferase (ALT/SGPT) 24 U/L Total Bilirubin 0.2 MG/DL Sodium Level 144 MEQ/L Potassium Level 4.1 MEQ/L Chloride Level 108 MEQ/L Carbon Dioxide Level 28.6 MEQ/L Anion Gap 7 MEQ/L Estimat Glomerular Filtration Rate 146 ML/MIN Salicylates Level LESS THAN 1.7 MG/DL Acetaminophen Level LESS THAN 2.0 MCG/ML Ethyl Alcohol Level LESS THAN 3 MG/DL Urine Opiates Screen NEG Urine Barbiturates Screen NEG Urine Amphetamines Screen NEG Urine Benzodiazepines Screen NEG Urine Cocaine Screen NEG Urine Cannabinoids Screen NEG MDM Supervised Visit with RAÚL: Yes Narrative Course Patient is 61-year-old male apparently with a history of alcohol-related dementia who was here Smith acted by Dr. Jaramillo last night after he was transferred here from [facility]. The history that I can gather from nursing and case management is that the patient was in fdc was released to go to [facility] on arrival there they could not care for him because he has a history of leg amputation and he has no orthotic, altered they decided to send him here for further evaluation. He was medically cleared by Dr. Clint Denton last night, placed under Smith act by Dr. Jaramillo. Smith act was lifted this afternoon by Dr. Koroma who stated to nursing the patient has a history of dementia and likely needs admission and possible placement. Case management has worked with the patient all day and finding no orthotic nor placement for the patient they recommended admission to the hospital. The patient is alert but not oriented at all. He is been screaming at nurses and and is clearly confused. Alert and awake and oriented and reviewed his labs as well as his CAT scan of his head from last night. At this time having no safe discharge the patient and discussed with Dr. Portillo for admission Diagnosis Primary Impression: Dementia associated with alcoholism Admitting Information Admitting Physician Requests: Observation Condition: Stable Benny Ignacio MD Aug 15, 2017 17:23
--- NOTE | 2017-08-15 18:08 | HHI.HP ---
[facility] Unknown Admission Diagnosis Dementia Diagnoses: Chief Complaint: placement issues, patient not ambulatory Travel History International Travel<30 Days: No Contact w/Intl Traveler <30 Da: No Traveled to Known Affected Are: No History of Present Illness 61-year-old male presents after being transferred from [facility]. He has no current paperwork from [facility] that explains his history of present illness. The nurse called [facility] and they reported that the patient was on suicide watch in alf. He was released from alf today to [facility] however he was felt to be beyond her scope of care and so they sent him here. In regards to specifically how he was outside of their scope of care this information was not elicited. On examination of the patient he has a very poor historian so history is limited. He has a very scattered and disorganized thought process. He is noted to be hypertensive. It appears that he was admitted psychiatrically in May of this year. No other complaints. The patient was Smith acted. He was seen by psychiatry doctor and lifted the Smith act. Patient however is down ambulatory and eating needs placement. case management is following. we'll consult pt for evaluation. Review of Systems ROS Limitations: Clinical Condition, Psychotic Except as stated in HPI: all other systems reviewed are Neg Past Family Social History Past Medical History Says is healthy, he has right AKA Past Surgical History Right AKA Reported Medications Reported Meds & Active Scripts Active Adult Aspirin EC Low Strength (Aspirin) 81 Mg Tabec 81 Mg PO DAILY 30 Days Catapres (Clonidine) 0.1 Mg Tab 0.1 Mg PO Q12HR 30 Days Gnp Vitamin B-1 (Thiamine HCl) 100 Mg Tab 100 Mg PO DAILY 30 Days Aspirin EC (Aspirin) 81 Mg Tabdr 81 Mg PO DAILY Allergies: Coded Allergies: No Known Allergies (Unverified Allergy, Unknown, 08/15/17) Active Ordered Medications Reported Meds & Active Scripts Active Adult Aspirin EC Low Strength (Aspirin) 81 Mg Tabec 81 Mg PO DAILY 30 Days Catapres (Clonidine) 0.1 Mg Tab 0.1 Mg PO Q12HR 30 Days Gnp Vitamin B-1 (Thiamine HCl) 100 Mg Tab 100 Mg PO DAILY 30 Days Aspirin EC (Aspirin) 81 Mg Tabdr 81 Mg PO DAILY Family History Says his parents and siblings are healthy Social History Alcohol use : Slava Plummer "all the time" Tobacco use cigars 1 ppd Denies illicit drug use Physical Exam Vital Signs Vital Signs Date Time Temp Pulse Resp B/P (MAP) Pulse Ox O2 Delivery O2 Flow Rate FiO2 08/15/17 17:37 79 18 162/78 (106) 97 Room Air 08/15/17 13:43 68 22 200/101 (134) 97 Room Air 08/15/17 09:10 61 14 145/63 (90) 99 Room Air 08/15/17 05:44 89 16 169/91 (117) 95 Room Air 08/15/17 02:19 85 16 143/71 (95) 95 Room Air 08/15/17 00:31 85 18 194/104 (134) 96 Room Air 08/14/17 22:27 98.9 76 16 228/112 (150) 100 Room Air Physical Exam GENERAL: This is a skinny disheveled male who appears in not acute distress. Poor judgment and poor insight. SKIN: No rashes, ecchymoses or lesions. Cool and dry. HEAD: Atraumatic. Normocephalic. No temporal or scalp tenderness. EYES: Pupils equal round and reactive. Extraocular motions intact. No scleral icterus. No injection or drainage. ENT: Nose without bleeding, purulent drainage or septal hematoma. Throat without erythema, tonsillar hypertrophy or exudate. Uvula midline. Airway patent. NECK: Trachea midline. No JVD or lymphadenopathy. Supple, nontender, no meningeal signs. CARDIOVASCULAR: Regular rate and rhythm without murmurs, gallops, or rubs. RESPIRATORY: Clear to auscultation. Breath sounds equal bilaterally. No wheezes , rales, or rhonchi. GASTROINTESTINAL: Abdomen soft, non-tender, nondistended. No hepato-splenomegaly , or palpable masses. No guarding. MUSCULOSKELETAL: Extremities without clubbing, cyanosis, or edema. No joint tenderness, effusion, or edema noted. No calf tenderness left. Negative Homans sign left . Right AKA. NEUROLOGICAL: Awake and alert. Cranial nerves II through XII intact. Motor and sensory grossly within normal limits. Normal speech. Laboratory Laboratory Tests Test 12/6/17 23:32 08/15/17 01:05 White Blood Count 8.3 Red Blood Count 4.58 Hemoglobin 13.3 Hematocrit 39.7 Mean Corpuscular Volume 86.6 Mean Corpuscular Hemoglobin 29.1 Mean Corpuscular Hemoglobin Concent 33.6 Red Cell Distribution Width 15.0 Platelet Count 306 Mean Platelet Volume 8.0 Neutrophils (%) (Auto) 59.8 Lymphocytes (%) (Auto) 26.7 Monocytes (%) (Auto) 10.0 Eosinophils (%) (Auto) 2.5 Basophils (%) (Auto) 1.0 Neutrophils # (Auto) 5.0 Lymphocytes # (Auto) 2.2 Monocytes # (Auto) 0.8 Eosinophils # (Auto) 0.2 Basophils # (Auto) 0.1 CBC Comment DIFF FINAL Differential Comment Blood Urea Nitrogen 18 Creatinine 0.57 Random Glucose 81 Total Protein 7.2 Albumin 3.4 Calcium Level 8.7 Alkaline Phosphatase 135 Aspartate Amino Transf (AST/SGOT) 18 Alanine Aminotransferase (ALT/SGPT) 24 Total Bilirubin 0.2 Sodium Level 144 Potassium Level 4.1 Chloride Level 108 Carbon Dioxide Level 28.6 Anion Gap 7 Estimat Glomerular Filtration Rate 146 Salicylates Level LESS THAN 1.7 Acetaminophen Level LESS THAN 2.0 Ethyl Alcohol Level LESS THAN 3 Urine Opiates Screen NEG Urine Barbiturates Screen NEG Urine Amphetamines Screen NEG Urine Benzodiazepines Screen NEG Urine Cocaine Screen NEG Urine Cannabinoids Screen NEG Result Diagram: 08/14/17 2332 08/14/17 2332 Imaging Last Impressions Head CT 08/14/17 0000 Signed Impressions: Service Date/Time: August 00:23 - CONCLUSION: 1. Large stable area of encephalomalacia involving the left middle cerebral artery territory consistent with an area of infarction. 2. No acute hemorrhage, mass or acute infarction identified. MD Misa Sandhui VTE Risk Assessment Caprini VTE Risk Assessment: Mod/High Risk (score >= 2) Caprini Risk Assessment Model Point Value = 1 Point Value = 2 Point Value = 3 Point Value = 5 Age 41-60 Minor surgery BMI > 25 kg/m2 Swollen legs Varicose veins or History of unexplained or recurrent spontaneous Oral contraceptives or hormone replacement Sepsis (< 1 month) Serious lung disease, including pneumonia (< 1 month) Abnormal pulmonary function Acute myocardial infarction Congestive heart failure (< 1 month) History of inflammatory bowel disease Medical patient at bed rest Age 61-74 Arthroscopic surgery Major open surgery (> 45 min) Laparoscopic surgery (> 45 min) Malignancy Confined to bed (> 72 hours) Immobilizing plaster cast Central venous access Age >= 75 History of VTE Family history of VTE Factor V Leiden Prothrombin [id number] Lupus anticoagulant Anticardiolipin antibodies Elevated serum homocysteine Heparin-induced thrombocytopenia Other congenital or acquired thrombophilia Stroke (< 1 month) Elective arthroplasty Hip, pelvis, or leg fracture Acute spinal cord injury (< 1 month) Prophylaxis Regimen Total Risk Factor Score Risk Level Prophylaxis Regimen 0-1 Low Early ambulation 2 Moderate Order ONE of the following: *Sequential Compression Device (SCD) *Heparin 5000 units SQ BID 3-4 Higher Order ONE of the following medications: *Heparin 5000 units SQ TID *Enoxaparin/Lovenox 40 mg SQ daily (WT < 150 kg, CrCl > 30 mL/min) *Enoxaparin/Lovenox 30 mg SQ daily (WT < 150 kg, CrCl > 10-29 mL/min) *Enoxaparin/Lovenox 30 mg SQ BID (WT < 150 kg, CrCl > 30 mL/min) AND/OR *Sequential Compression Device (SCD) 5 or more Highest Order ONE of the following medications: *Heparin 5000 units SQ TID (Preferred with Epidurals) *Enoxaparin/Lovenox 40 mg SQ daily (WT < 150 kg, CrCl > 30 mL/min) *Enoxaparin/Lovenox 30 mg SQ daily (WT < 150 kg, CrCl > 10-29 mL/min) *Enoxaparin/Lovenox 30 mg SQ BID (WT < 150 kg, CrCl > 30 mL/min) AND *Sequential Compression Device (SCD) Assessment and Plan Assessment and Plan 61-year-old male was sent here from [facility] because he was felt to be outside of their scope of care. Upon examination the patient is found to be bizarre with disorganized thought pattern. He was therefore placed under Smith act by Dr. Jaramillo. He is also noted to be hypertensive. He was given I will IV labetalol with improvement of his symptoms. He was later given a dose of oral clonidine with normalization of his blood pressure. CT the brain reveals large stable area of encephalomalacia involving left middle cerebral artery territory consistent with an area of infarction. No acute infarction identified. Laboratory is unremarkable. Unspecified psychosis Patient was BA, was seen by psych lifted BA. Patient however is not ambulatory Noted with high blood pressure on admission received IV labetalol, blood pressure is better controlled at this time. Monitor and start medications if needed. CT brain reveals large stable area of encephalomalacia involving the left middle cerebral artery territory consistent with an inferior infarction. No acute infarction. Labs reviewed and unremarkable Case management consulted for discharge plan PT consulted DVT prophylaxis with SCD Aimee duval Discussed Condition With patient, nurse, ED physician Saba Portillo MD Aug 15, 2017 18:08
[2017-08-15] MEDS: DOCUSATE SODIUM 50 MG/SENNA 8.6 MG TAB PO SCH (21:00)
[2017-08-15] MEDS: cloNIDine HCL 0.1 MG TAB PO SCH (21:00)
[2017-08-15] MEDS: SODIUM CHLORIDE 0.9% FLUSH 10 ML FLUSH IV FLUSH SCH (21:00)
[2017-08-16] VITALS (8 sets, daily range): BP systolic 162–201; BP diastolic 79–114; PULSE 55–87; RESP 18–20; TEMP 97.4–98.7; O2SAT 94–97
[2017-08-16] MEDS: THIAMINE HCL 100 MG TAB PO SCH (08:14)
[2017-08-16] MEDS: SODIUM CHLORIDE 0.9% FLUSH 10 ML FLUSH IV FLUSH SCH ×2 (08:14→21:00)
[2017-08-16] MEDS: DOCUSATE SODIUM 50 MG/SENNA 8.6 MG TAB PO SCH ×2 (08:15→21:00)
[2017-08-16] MEDS: cloNIDine HCL 0.1 MG TAB PO SCH ×2 (08:15→21:00)
[2017-08-16] MEDS: ASPIRIN EC 81 MG TABEC PO SCH (08:15)
[2017-08-16] MEDS ORDERED: ASPIRIN EC 81 MG TABEC PO SCH (09:00)
[2017-08-16] MEDS ORDERED: LORazepam 2 MG/ML VIAL IV PUSH PRN ×2 (13:15)
[2017-08-16] MEDS ORDERED: FLUMAZENIL 0.5 MG/5 ML VIAL IV PUSH PRN (13:15)
[2017-08-16] MEDS ORDERED: LORazepam 1 MG TAB PO PRN (13:15)
[2017-08-16] MEDS ORDERED: LORazepam 2 MG TAB PO PRN (13:15)
[2017-08-16] MEDS: amLODIPine BESYLATE 5 MG TAB PO SCH (14:00)
--- NOTE | 2017-08-16 16:05 | HHI.PR ---
Subjective Remarks The patient says he does not have money here but he has money with his family in [place]. He would like a bus ticket to go to [place]. He does not want to stay in the hospital. He drinks a lot of alcohol and does not want to quit. He denies any intention to harm himself. He says he has always had high blood pressure. Discussed with nursing. Objective Vitals Vital Signs Date Time Temp Pulse Resp B/P (MAP) Pulse Ox O2 Delivery O2 Flow Rate FiO2 08/16/17 12:00 98.3 87 20 198/94 (128) 94 08/16/17 11:45 98.3 87 20 198/94 (128) 94 08/16/17 09:28 97.4 66 20 162/79 (106) 94 08/16/17 04:20 98.0 55 18 175/89 (117) 94 08/16/17 00:19 98.1 69 18 170/89 (116) 94 08/15/17 21:11 99.2 64 18 179/94 (122) 94 08/15/17 20:54 08/15/17 19:20 70 15 08/15/17 19:18 70 14 154/80 (104) 97 Room Air 08/15/17 19:00 148/78 (101) 08/15/17 17:37 79 18 162/78 (106) 97 Room Air I/O 08/15/17 08/15/17 08/15/17 08/16/17 08/16/17 08/16/17 07:00 15:00 23:00 07:00 15:00 23:00 Output Total 300 ml 700 ml Balance -300 ml -700 ml Output Urine Total 300 ml 700 ml # Voids 1 Result Diagram: 08/14/17 2332 08/14/17 2332 Imaging Last Impressions Head CT 08/14/17 0000 Signed Impressions: Service Date/Time: August 00:23 - CONCLUSION: 1. Large stable area of encephalomalacia involving the left middle cerebral artery territory consistent with an area of infarction. 2. No acute hemorrhage, mass or acute infarction identified. Gopal Mendez MD Objective Remarks GENERAL: Disheveled male in no acute distress. SKIN: Warm and dry. HEAD: Atraumatic. Normocephalic. EYES: Pupils equal and round. No scleral icterus. No injection or drainage. ENT: No nasal bleeding or discharge. Mucous membranes pink and moist. NECK: Trachea midline. No JVD. CARDIOVASCULAR: Regular rate and rhythm. No murmur appreciated. RESPIRATORY: No accessory muscle use. Clear to auscultation. Breath sounds equal bilaterally. GASTROINTESTINAL: Abdomen soft, non-tender, nondistended. Hepatic and splenic margins not palpable. MUSCULOSKELETAL: Right BKA. NEUROLOGICAL: Awake and alert. No obvious cranial nerve deficits. Weakness noted in the right upper extremity. Garbled speech. PSYCHIATRIC: Slightly agitated. Medications and IVs Current Medications Medications (Trade) Dose Ordered Sig/Nicolas Route Start Time Stop Time Status Last Admin (Ecotrin Ec) 81 mg DAILY PO 08/16/17 09:00 08/16/17 08:15 (Catapres) 0.1 mg Q12HR PO 08/15/17 21:00 08/16/17 08:15 (Vitamin B1) 100 mg DAILY PO 08/16/17 09:00 08/16/17 08:14 (NS Flush) 2 ml UNSCH PRN IV FLUSH 08/15/17 17:15 (NS Flush) 2 ml BID IV FLUSH 08/15/17 21:00 08/16/17 08:14 (Tylenol) 650 mg Q4H PRN PO 08/15/17 17:15 (Zofran Inj) 4 mg Q6H PRN IVP 08/15/17 17:15 (Narcan Inj) 0.4 mg UNSCH PRN IV PUSH 08/15/17 17:15 (Colleen-Colace) 1 tab BID PO 08/15/17 21:00 08/16/17 08:15 (Milk Of Magnesia Liq) 30 ml Q12H PRN PO 08/15/17 17:15 (Senokot) 17.2 mg Q12H PRN PO 08/15/17 17:15 (Dulcolax Supp) 10 mg DAILY PRN RECTAL 08/15/17 17:15 (Lactulose Liq) 30 ml DAILY PRN PO 08/15/17 17:15 (Romazicon Inj) 0.2 mg Q1M PRN IV PUSH 08/16/17 13:15 (Ativan) 1 mg Q4H PRN PO 08/16/17 13:15 (Ativan) 2 mg Q2H PRN PO 08/16/17 13:15 (Ativan Inj) 2 mg Q1H PRN IV PUSH 08/16/17 13:15 (Ativan Inj) 2 mg Q15M PRN IV PUSH 08/16/17 13:15 (Norvasc) 5 mg DAILY PO 08/16/17 14:00 08/16/17 14:00 A/P Assessment and Plan CVA/ Agitation The pt was sent here from [facility]. Patient was BA, was seen by psych who lifted . CT brain reveals large stable area of encephalomalacia involving the left middle cerebral artery territory consistent with an inferior infarction; No acute infarction. - Case management consulted for discharge plan - PT/ OT/ ST consulted. - continue ASA. - check a lipid profile. Alcohol abuse The pt endorses drinking a lot of alcohol. - cessation instruction. - CIWA protocol. HTN The pt says he always has high blood pressure. - continue clonidine. - amlodipine 5 mg daily added. - Vasotec as needed. DVT prophylaxis with SCD tedcatherine Nohelianox Discharge Planning Awaiting placement, may need guardianship Gopal Valle DO Aug 16, 2017 16:04
[2017-08-16] MEDS: ENALAPRILAT 2.5 MG/2 ML VIAL IV PUSH PRN (17:15)
[2017-08-16 22:02] LABS: CHOLESTEROL/ HDL RATIO 3.47 RATIO; HDL CHOLESTEROL 35.7 MG/DL (40.0-60.0)
[2017-08-17 04:33] VITALS: BP 186/102; PULSE 84; RESP 17
[2017-08-17] MEDS: ENALAPRILAT 2.5 MG/2 ML VIAL IV PUSH PRN (04:48)
[2017-08-17 07:52] VITALS: BP 203/111; PULSE 63; RESP 20; O2SAT 95
[2017-08-17] MEDS: DOCUSATE SODIUM 50 MG/SENNA 8.6 MG TAB PO SCH ×2 (08:45→21:00)
[2017-08-17] MEDS: THIAMINE HCL 100 MG TAB PO SCH (08:45)
[2017-08-17] MEDS: amLODIPine BESYLATE 5 MG TAB PO SCH (08:45)
[2017-08-17] MEDS: SODIUM CHLORIDE 0.9% FLUSH 10 ML FLUSH IV FLUSH SCH ×2 (08:45→21:00)
[2017-08-17] MEDS: cloNIDine HCL 0.1 MG TAB PO SCH ×2 (08:45→21:00)
[2017-08-17] MEDS: ASPIRIN EC 81 MG TABEC PO SCH (08:45)
[2017-08-17 12:35] VITALS: BP 175/83; PULSE 63; RESP 20; TEMP 97.7; O2SAT 95
--- NOTE | 2017-08-17 14:23 | HHI.PR ---
Subjective Remarks The patient was angry that he was still in the hospital. He said his blood pressure was always high. He did not want to take his medications. Objective Vitals Vital Signs Date Time Temp Pulse Resp B/P (MAP) Pulse Ox O2 Delivery O2 Flow Rate FiO2 08/17/17 12:35 97.7 63 20 175/83 (113) 95 08/17/17 07:52 63 20 203/111 (141) 95 08/17/17 04:33 84 17 186/102 (130) 08/17/17 00:05 08/16/17 19:48 98.7 18 184/114 (137) 96 08/16/17 17:21 168/81 (110) 08/16/17 16:00 98.2 80 20 201/97 (131) 97 I/O 08/16/17 08/16/17 08/16/17 08/17/17 08/17/17 08/17/17 07:00 15:00 23:00 07:00 15:00 23:00 Intake Total 1520 ml 550 ml Output Total 700 ml 2200 ml 1200 ml Balance -700 ml -680 ml -650 ml Intake Oral 1520 ml 550 ml Output Urine Total 700 ml 2200 ml 1200 ml Result Diagram: 08/14/17 2332 08/14/17 2332 Imaging Last Impressions Head CT 08/14/17 0000 Signed Impressions: Service Date/Time: August 00:23 - CONCLUSION: 1. Large stable area of encephalomalacia involving the left middle cerebral artery territory consistent with an area of infarction. 2. No acute hemorrhage, mass or acute infarction identified. Gopal Mendez MD Objective Remarks GENERAL: Disheveled male, angry that he's still in the hospital. SKIN: Warm and dry. HEAD: Atraumatic. Normocephalic. EYES: Pupils equal and round. No scleral icterus. No injection or drainage. ENT: No nasal bleeding or discharge. Mucous membranes pink and moist. NECK: Trachea midline. No JVD. CARDIOVASCULAR: Regular rate and rhythm. No murmur appreciated. RESPIRATORY: No accessory muscle use. Clear to auscultation. Breath sounds equal bilaterally. GASTROINTESTINAL: Abdomen soft, non-tender, nondistended. Hepatic and splenic margins not palpable. MUSCULOSKELETAL: Right BKA. NEUROLOGICAL: Awake and alert. No obvious cranial nerve deficits. Weakness noted in the right upper extremity. Garbled speech. PSYCHIATRIC: Agitated. Medications and IVs Current Medications Medications (Trade) Dose Ordered Sig/Nicolas Route Start Time Stop Time Status Last Admin (Ecotrin Ec) 81 mg DAILY PO 08/16/17 09:00 08/16/17 08:15 (Catapres) 0.1 mg Q12HR PO 08/15/17 21:00 08/16/17 08:15 (Vitamin B1) 100 mg DAILY PO 08/16/17 09:00 08/16/17 08:14 (NS Flush) 2 ml UNSCH PRN IV FLUSH 08/15/17 17:15 (NS Flush) 2 ml BID IV FLUSH 08/15/17 21:00 08/16/17 08:14 (Tylenol) 650 mg Q4H PRN PO 08/15/17 17:15 (Zofran Inj) 4 mg Q6H PRN IVP 08/15/17 17:15 (Narcan Inj) 0.4 mg UNSCH PRN IV PUSH 08/15/17 17:15 (Colleen-Colace) 1 tab BID PO 08/15/17 21:00 08/16/17 08:15 (Milk Of Magnesia Liq) 30 ml Q12H PRN PO 08/15/17 17:15 (Senokot) 17.2 mg Q12H PRN PO 08/15/17 17:15 (Dulcolax Supp) 10 mg DAILY PRN RECTAL 08/15/17 17:15 (Lactulose Liq) 30 ml DAILY PRN PO 08/15/17 17:15 (Romazicon Inj) 0.2 mg Q1M PRN IV PUSH 08/16/17 13:15 (Ativan) 1 mg Q4H PRN PO 08/16/17 13:15 (Ativan) 2 mg Q2H PRN PO 08/16/17 13:15 (Ativan Inj) 2 mg Q1H PRN IV PUSH 08/16/17 13:15 (Ativan Inj) 2 mg Q15M PRN IV PUSH 08/16/17 13:15 (Norvasc) 5 mg DAILY PO 08/16/17 14:00 08/16/17 14:00 (Vasotec Inj) 2.5 mg Q6H PRN IV PUSH 08/16/17 16:15 A/P Assessment and Plan CVA/ Agitation The pt was sent here from [facility]. Patient was BA, was seen by psych who lifted BA. CT brain reveals large stable area of encephalomalacia involving the left middle cerebral artery territory consistent with an inferior infarction; No acute infarction. LDL 72. - Case management consulted for discharge plan - PT/ OT/ ST consulted. - continue ASA. Alcohol abuse The pt endorses drinking a lot of alcohol. - cessation instruction. - CIWA protocol. Hypertensive urgency The pt says he always has high blood pressure. Systolic has been over 200. - the pt is currently refusing all medications. Try to encourage compliance. DVT prophylaxis with SCD teds, Lovenox Discharge Planning Awaiting placement, may need guardianship Gopal Valle DO Aug 17, 2017 14:23
[2017-08-17 20:42] VITALS: BP 192/114; PULSE 76; RESP 17; TEMP 98.9; O2SAT 96
[2017-08-17 23:37] VITALS: BP 189/115; PULSE 64; RESP 17; TEMP 98.6; O2SAT 96
[2017-08-18 03:41] VITALS: BP 182/102; PULSE 65; RESP 17; TEMP 97.9; O2SAT 96
[2017-08-18] MEDS: SODIUM CHLORIDE 0.9% FLUSH 10 ML FLUSH IV FLUSH SCH ×2 (08:42→21:00)
[2017-08-18] MEDS: cloNIDine HCL 0.1 MG TAB PO SCH ×2 (08:42→21:00)
[2017-08-18] MEDS: amLODIPine BESYLATE 5 MG TAB PO SCH (08:42)
[2017-08-18] MEDS: ASPIRIN EC 81 MG TABEC PO SCH (08:42)
[2017-08-18] MEDS: DOCUSATE SODIUM 50 MG/SENNA 8.6 MG TAB PO SCH ×2 (08:42→21:00)
[2017-08-18] MEDS: THIAMINE HCL 100 MG TAB PO SCH (08:42)
--- NOTE | 2017-08-18 12:46 | HHI.PR ---
Subjective Remarks The patient was resting comfortably in bed. Nursing reports that he has been refusing to have another IV placed. Objective Vitals Vital Signs Date Time Temp Pulse Resp B/P (MAP) Pulse Ox O2 Delivery O2 Flow Rate FiO2 08/18/17 03:41 97.9 65 17 182/102 (128) 96 08/17/17 23:37 98.6 64 17 189/115 (139) 96 08/17/17 20:42 98.9 76 17 192/114 (140) 96 I/O 08/17/17 08/17/17 08/17/17 08/18/17 08/18/17 08/18/17 07:00 15:00 23:00 07:00 15:00 23:00 Intake Total 550 ml Output Total 1200 ml Balance -650 ml Intake Oral 550 ml Output Urine Total 1200 ml Result Diagram: 08/14/17233108/14/172331 Objective Remarks GENERAL: Disheveled male, angry that he's still in the hospital. SKIN: Warm and dry. HEAD: Atraumatic. Normocephalic. EYES: Pupils equal and round. No scleral icterus. No injection or drainage. ENT: No nasal bleeding or discharge. Mucous membranes pink and moist. NECK: Trachea midline. No JVD. CARDIOVASCULAR: Regular rate and rhythm. No murmur appreciated. RESPIRATORY: No accessory muscle use. Clear to auscultation. Breath sounds equal bilaterally. GASTROINTESTINAL: Abdomen soft, non-tender, nondistended. Hepatic and splenic margins not palpable. MUSCULOSKELETAL: Right BKA. NEUROLOGICAL: Awake and alert. No obvious cranial nerve deficits. Weakness noted in the right upper extremity. Garbled speech. PSYCHIATRIC: Agitated. Medications and IVs Current Medications Medications (Trade) Dose Ordered Sig/Nicolas Route Start Time Stop Time Status Last Admin (Ecotrin Ec) 81 mg DAILY PO 08/16/17 09:00 08/16/17 08:15 (Catapres) 0.1 mg Q12HR PO 08/15/17 21:00 08/16/17 08:15 (Vitamin B1) 100 mg DAILY PO 08/16/17 09:00 08/16/17 08:14 (NS Flush) 2 ml UNSCH PRN IV FLUSH 08/15/17 17:15 (NS Flush) 2 ml BID IV FLUSH 08/15/17 21:00 08/16/17 08:14 (Tylenol) 650 mg Q4H PRN PO 08/15/17 17:15 (Zofran Inj) 4 mg Q6H PRN IVP 08/15/17 17:15 (Narcan Inj) 0.4 mg UNSCH PRN IV PUSH 08/15/17 17:15 (Colleen-Colace) 1 tab BID PO 08/15/17 21:00 08/16/17 08:15 (Milk Of Magnesia Liq) 30 ml Q12H PRN PO 08/15/17 17:15 (Senokot) 17.2 mg Q12H PRN PO 08/15/17 17:15 (Dulcolax Supp) 10 mg DAILY PRN RECTAL 08/15/17 17:15 (Lactulose Liq) 30 ml DAILY PRN PO 08/15/17 17:15 (Romazicon Inj) 0.2 mg Q1M PRN IV PUSH 08/16/17 13:15 (Ativan) 1 mg Q4H PRN PO 08/16/17 13:15 (Ativan) 2 mg Q2H PRN PO 08/16/17 13:15 (Ativan Inj) 2 mg Q1H PRN IV PUSH 08/16/17 13:15 (Ativan Inj) 2 mg Q15M PRN IV PUSH 08/16/17 13:15 (Norvasc) 5 mg DAILY PO 08/16/17 14:00 08/16/17 14:00 (Vasotec Inj) 2.5 mg Q6H PRN IV PUSH 08/16/17 16:15 A/P Assessment and Plan CVA/ Agitation The pt was sent here from [facility]. Patient was BA, was seen by psych who lifted . CT brain reveals large stable area of encephalomalacia involving the left middle cerebral artery territory consistent with an inferior infarction; No acute infarction. LDL 72. - Case management consulted for discharge plan. Placement may be an issue. - PT/ OT/ ST consulted. - continue ASA. Alcohol abuse The pt endorses drinking a lot of alcohol. - cessation instruction. - CIWA protocol. Hypertensive urgency The pt says he always has high blood pressure. Systolic has been over 200. - the pt is currently refusing all medications. Try to encourage compliance. DVT prophylaxis with SCD teds, Lovenox Discharge Planning Awaiting placement, may need guardianship Gopal Valle DO Aug 18, 2017 12:46
[2017-08-18 13:02] VITALS: BP 171/88; PULSE 73; RESP 18; TEMP 97.5; O2SAT 96
[2017-08-18 16:20] VITALS: BP 211/96; PULSE 76; RESP 18; TEMP 97.8; O2SAT 97
[2017-08-18 19:52] VITALS: BP 170/98; PULSE 72; RESP 18; TEMP 98.4; O2SAT 96
[2017-08-19] MEDS: SODIUM CHLORIDE 0.9% FLUSH 10 ML FLUSH IV FLUSH SCH ×2 (08:32→21:00)
[2017-08-19] MEDS: amLODIPine BESYLATE 5 MG TAB PO SCH (08:32)
[2017-08-19] MEDS: cloNIDine HCL 0.1 MG TAB PO SCH ×2 (08:32→21:00)
[2017-08-19] MEDS: ASPIRIN EC 81 MG TABEC PO SCH (08:32)
[2017-08-19] MEDS: THIAMINE HCL 100 MG TAB PO SCH (08:33)
[2017-08-19] MEDS: DOCUSATE SODIUM 50 MG/SENNA 8.6 MG TAB PO SCH ×2 (08:33→21:00)
--- NOTE | 2017-08-19 11:22 | HHI.PYPN ---
Subjective Remarks Patient was visited for psychiatric reevaluation today, I know the patient from a previous psychiatric hospitalization in June 2017 were I do the second opinion for involuntary admission in the patient. I have reviewed Dr. Koroma's documentation. On psychiatric evaluation the patient is found lethargic, every distant, the patient doesn't answer any of my questions. In spite of multiple attempts the patient doesn't talk continues to lay down in the bed. Review of Systems Except as stated in HPI: all other systems reviewed are Neg Mental Status Examination Appearance: Disheveled Consciousness: Alert Orientation: Person, Place, Situation Motor Activity: Abnormal gait Speech: Hesitant, Slow, Speech impediment Language: Adequate Fund of Knowledge: Adequate Attention and Concentration: Inadequate Memory: Impaired Mood: Irritable Affect: Other Thought Process & Associations: Other Thought Content: Other Hallucination Type: None Delusion Type: None Suicidal Ideation: No Suicidal Plan: No Suicidal Intention: No Homicidal Ideation: No Homicidal Plan: No Homicidal Intention: No Insight: Fair Judgment: Impulsive Results Vitals/IOs Vital Signs Date Time Temp Pulse Resp B/P (MAP) Pulse Ox O2 Delivery O2 Flow Rate FiO2 08/18/17 19:52 98.4 72 18 170/98 (122) 96 08/15/17 19:18 Room Air Intake and Output 08/19/17 08/19/17 08/20/17 08:00 16:00 00:00 Output Total 250 ml Balance -250 ml Assessment & Plan Problem List: (1) Dementia associated with alcoholism ICD Codes: F10.27 - Alcohol dependence with alcohol-induced persisting dementia Status: Acute Assessment & Plan: After a revision medical charge. Discussed the patient with nurse. I agree with Dr. Koroma assessment and plan. He definitely doesn't meet criteria for psychiatric hospitalization at this moment. Assessment & Plan Estimated LOS: days Justification for Cont. Inpt. Does not meet criteria for involuntary psychiatric admission at this moment. Fabrice Hurd MD Aug 19, 2017 11:22
--- NOTE | 2017-08-19 12:35 | HHI.PR ---
Subjective Remarks The patient said that he wanted coffee. He did not want any medication to control his blood pressure or any patches on his body. He wanted to be left alone. He got extremely agitated and started to throw things in the room and get up out of bed. Discussed with psychiatry. Objective Vitals Vital Signs Date Time Temp Pulse Resp B/P (MAP) Pulse Ox O2 Delivery O2 Flow Rate FiO2 08/18/17 19:52 98.4 72 18 170/98 (122) 96 08/18/17 16:20 97.8 76 18 211/96 (134) 97 08/18/17 13:02 97.5 73 18 171/88 (115) 96 I/O 08/18/17 08/18/17 08/18/17 08/19/17 08/19/17 08/19/17 07:00 15:00 23:00 07:00 15:00 23:00 Output Total 250 ml Balance -250 ml Output Urine Total 250 ml # Voids 1 Result Diagram: 08/14/17 2332 Imaging Last Impressions Head CT 08/14/17 0000 Signed Impressions: Service Date/Time: August 00:23 - CONCLUSION: 1. Large stable area of encephalomalacia involving the left middle cerebral artery territory consistent with an area of infarction. 2. No acute hemorrhage, mass or acute infarction identified. Gopal Mendez MD Objective Remarks GENERAL: Disheveled male resting in bed. SKIN: Warm and dry. HEAD: Atraumatic. Normocephalic. EYES: Pupils equal and round. No scleral icterus. No injection or drainage. ENT: No nasal bleeding or discharge. Mucous membranes pink and moist. NECK: Trachea midline. No JVD. CARDIOVASCULAR: Regular rate and rhythm. No murmur appreciated. RESPIRATORY: No accessory muscle use. Clear to auscultation. Breath sounds equal bilaterally. GASTROINTESTINAL: Abdomen soft, non-tender, nondistended. Hepatic and splenic margins not palpable. MUSCULOSKELETAL: Right BKA. NEUROLOGICAL: No obvious cranial nerve deficits. Weakness noted in the right upper extremity. Garbled speech. PSYCH: Very agitated. Medications and IVs Current Medications Medications (Trade) Dose Ordered Sig/Nicolas Route Start Time Stop Time Status Last Admin (Ecotrin Ec) 81 mg DAILY PO 08/16/17 09:00 08/16/17 08:15 (Catapres) 0.1 mg Q12HR PO 08/15/17 21:00 08/16/17 08:15 (Vitamin B1) 100 mg DAILY PO 08/16/17 09:00 08/16/17 08:14 (NS Flush) 2 ml UNSCH PRN IV FLUSH 08/15/17 17:15 (NS Flush) 2 ml BID IV FLUSH 08/15/17 21:00 08/16/17 08:14 (Tylenol) 650 mg Q4H PRN PO 08/15/17 17:15 (Zofran Inj) 4 mg Q6H PRN IVP 08/15/17 17:15 (Narcan Inj) 0.4 mg UNSCH PRN IV PUSH 08/15/17 17:15 (Colleen-Colace) 1 tab BID PO 08/15/17 21:00 08/16/17 08:15 (Milk Of Magnesia Liq) 30 ml Q12H PRN PO 08/15/17 17:15 (Senokot) 17.2 mg Q12H PRN PO 08/15/17 17:15 (Dulcolax Supp) 10 mg DAILY PRN RECTAL 08/15/17 17:15 (Lactulose Liq) 30 ml DAILY PRN PO 08/15/17 17:15 (Romazicon Inj) 0.2 mg Q1M PRN IV PUSH 08/16/17 13:15 (Ativan) 1 mg Q4H PRN PO 08/16/17 13:15 (Ativan) 2 mg Q2H PRN PO 08/16/17 13:15 (Ativan Inj) 2 mg Q1H PRN IV PUSH 08/16/17 13:15 (Ativan Inj) 2 mg Q15M PRN IV PUSH 08/16/17 13:15 (Norvasc) 5 mg DAILY PO 08/16/17 14:00 08/16/17 14:00 (Vasotec Inj) 2.5 mg Q6H PRN IV PUSH 08/16/17 16:15 A/P Assessment and Plan CVA The pt was sent here from [facility]. Patient was BA, was seen by psych who lifted BA. CT brain reveals large stable area of encephalomalacia involving the left middle cerebral artery territory consistent with an inferior infarction; No acute infarction. LDL 72. - Case management consulted for discharge plan. Placement may be an issue. - PT/ OT/ ST consulted. - continue ASA. Noncompliance/ Agitation The pt refuses all meds. He has bouts of agitation. Capacity is questionable. - psychiatry consult noted. Discussed with psychiatry that the problem is the pt 's agitation and possible incapacity at making medical decisions. Psychiatry will re-evaluate the pt today or tomorrow. - check an EKG to see if Haldol vs. Seroquel can be used for agitation. Alcohol abuse The pt endorses drinking a lot of alcohol. - cessation instruction. - CIWA protocol. Hypertensive urgency The pt says he always has high blood pressure. Systolic has been over 200. - the pt is currently refusing all medications. Try to encourage compliance. DVT prophylaxis with SCD teds, Lovenox Discharge Planning Awaiting placement, may need guardianship Gopal Valle DO Aug 19, 2017 12:35
[2017-08-19 15:39] VITALS: BP 165/102; PULSE 80; RESP 20; TEMP 97.9; O2SAT 94
[2017-08-19 18:59] VITALS: BP 142/91; PULSE 90; RESP 18; TEMP 98.8; O2SAT 96
[2017-08-20] MEDS: SODIUM CHLORIDE 0.9% FLUSH 10 ML FLUSH IV FLUSH SCH ×2 (08:57→20:05)
[2017-08-20] MEDS: THIAMINE HCL 100 MG TAB PO SCH (08:57)
[2017-08-20] MEDS: ASPIRIN EC 81 MG TABEC PO SCH (08:57)
[2017-08-20] MEDS: DOCUSATE SODIUM 50 MG/SENNA 8.6 MG TAB PO SCH ×2 (08:57→20:05)
[2017-08-20] MEDS: amLODIPine BESYLATE 5 MG TAB PO SCH (09:00)
[2017-08-20] MEDS: cloNIDine HCL 0.1 MG TAB PO SCH ×2 (09:00→20:05)
[2017-08-20 11:42] VITALS: BP 119/68; PULSE 106; RESP 18; TEMP 97.6; O2SAT 95
--- NOTE | 2017-08-20 13:14 | HHI.PYPN ---
Subjective Remarks The patient was seen today for psychiatric reevaluation. Case was discussed with primary treating doctor and also with nursing charge. Chart was reviewed. Patient poorly cooperative,very reticent, does not answer most of the question and at times try to communicate with an incoherent and aphasic speech. As per nurse in charge patient has been episodically agitated and loud, kind of difficult to redirect. Review of Systems Except as stated in HPI: all other systems reviewed are Neg Mental Status Examination Appearance: Disheveled Consciousness: Alert Orientation: Person, Place, Situation Motor Activity: Abnormal gait Speech: Hesitant, Slow, Speech impediment Language: Adequate Fund of Knowledge: Adequate Attention and Concentration: Inadequate Memory: Impaired Mood: Irritable Affect: Other Thought Process & Associations: Other Thought Content: Other Hallucination Type: None Delusion Type: None Suicidal Ideation: No Suicidal Plan: No Suicidal Intention: No Homicidal Ideation: No Homicidal Plan: No Homicidal Intention: No Insight: Fair Judgment: Impulsive Results Vitals/IOs Vital Signs Date Time Temp Pulse Resp B/P (MAP) Pulse Ox O2 Delivery O2 Flow Rate FiO2 08/20/17 11:42 97.6 106 18 119/68 (85) 95 Assessment & Plan Problem List: (1) Dementia associated with alcoholism ICD Codes: F10.27 - Alcohol dependence with alcohol-induced persisting dementia Status: Acute Assessment & Plan: Order Risperdal 0.5 mg twice a day for behavior control, Haldol 2 mg IM every 6 hours when necessary aggressive behavior and agitation. Follow-up. Assessment & Plan Estimated LOS: days Justification for Cont. Inpt. No psychiatric admission indicated. Fabrice Hurd MD Aug 20, 2017 13:14
[2017-08-20] MEDS ORDERED: HALOPERIDOL LACTATE 5 MG/ML AMP IM PRN (13:15)
--- NOTE | 2017-08-20 15:37 | HHI.PR ---
Subjective Remarks Follow up CVA, agitation, hypertension. Patient is confused, somewhat agitated. No other events reported by nursing. Objective Vitals Vital Signs Date Time Temp Pulse Resp B/P (MAP) Pulse Ox O2 Delivery O2 Flow Rate FiO2 08/20/17 11:42 97.6 106 18 119/68 (85) 95 08/19/17 18:59 98.8 90 18 142/91 (108) 96 08/19/17 15:39 97.9 80 20 165/102 (123) 94 I/O 08/19/17 08/19/17 08/19/17 08/20/17 08/20/17 08/20/17 07:00 15:00 23:00 07:00 15:00 23:00 Output Total 250 ml Balance -250 ml Output Urine Total 250 ml Imaging Last Impressions Head CT 08/14/17 0000 Signed Impressions: Service Date/Time: August 00:23 - CONCLUSION: 1. Large stable area of encephalomalacia involving the left middle cerebral artery territory consistent with an area of infarction. 2. No acute hemorrhage, mass or acute infarction identified. Gopal Mendez MD Objective Remarks General: Disheveled male in no acute distress. Heart: Regular rate and rhythm. No murmur. Lungs: Clear to auscultation bilaterally. No wheezes, rales, or rhonchi. Breathing is nonlabored. Abdomen: Soft, nontender, nondistended. Extremities: No left lower extremity edema. Right AKA. Psych: Alert and oriented. Urinary Catheter: No Vascular Central Line Catheter: No A/P Assessment and Plan 1. Confusion, agitation: Patient was initially admitted under Smith act. The Smith act was lifted by psychiatry. CT of the brain shows a large stable area of encephalomalacia involving the left middle cerebral artery territory. Continue PT/OT/ST. Appreciate psychiatry recommendations. Patient is intermittently agitated. 2. Alcohol abuse: Patient counseled. CIWA protocol. 3. Hypertension: Patient has been refusing all of his medications. Blood pressure is actually a little better today. 4. DVT prophylaxis: SCDs, GABRIELA hose, Lovenox. Discharge Planning Case management assisting with discharge planning. Patient will need placement, guardianship. Kevin Nunez MD Aug 20, 2017 15:37
[2017-08-20] MEDS: risperiDONE 0.5 MG TAB PO SCH (20:05)
[2017-08-20 21:36] VITALS: BP 192/112; PULSE 71; RESP 18; TEMP 98.3; O2SAT 97
[2017-08-21 00:13] VITALS: BP 148/91; PULSE 76; RESP 18; TEMP 98.1; O2SAT 95
[2017-08-21 07:57] VITALS: BP 148/85; PULSE 69; RESP 21; TEMP 97.8; O2SAT 92
[2017-08-21] MEDS: ASPIRIN EC 81 MG TABEC PO SCH (09:00)
[2017-08-21] MEDS: SODIUM CHLORIDE 0.9% FLUSH 10 ML FLUSH IV FLUSH SCH ×2 (09:00→21:00)
[2017-08-21] MEDS: THIAMINE HCL 100 MG TAB PO SCH (09:00)
[2017-08-21] MEDS: risperiDONE 0.5 MG TAB PO SCH ×2 (09:00→21:00)
[2017-08-21] MEDS: DOCUSATE SODIUM 50 MG/SENNA 8.6 MG TAB PO SCH ×2 (09:00→21:00)
[2017-08-21] MEDS: amLODIPine BESYLATE 5 MG TAB PO SCH (09:00)
[2017-08-21] MEDS: cloNIDine HCL 0.1 MG TAB PO SCH ×2 (09:00→21:00)
--- NOTE | 2017-08-21 15:37 | HHI.PR ---
Subjective Remarks Follow up CVA, agitation, hypertension. The patient does not report any complaints at this time. Per nursing, he has agreed to have his vitals checked once today. He is still refusing all of his medications. Objective Vitals Vital Signs Date Time Temp Pulse Resp B/P (MAP) Pulse Ox O2 Delivery O2 Flow Rate FiO2 08/21/17 07:57 97.8 69 21 148/85 (106) 92 08/21/17 00:13 98.1 76 18 148/91 (110) 95 08/20/17 21:36 98.3 71 18 192/112 (138) 97 I/O 08/20/17 08/20/17 08/20/17 08/21/17 08/21/17 08/21/17 07:00 15:00 23:00 07:00 15:00 23:00 # Bowel Movements 1 Imaging Last Impressions Head CT 08/14/17 0000 Signed Impressions: Service Date/Time: August 00:23 - CONCLUSION: 1. Large stable area of encephalomalacia involving the left middle cerebral artery territory consistent with an area of infarction. 2. No acute hemorrhage, mass or acute infarction identified. Gopal Mendez MD Objective Remarks General: Disheveled male in no acute distress. HEENT: Area of scarring and hyperpigmentation below the right eye. Heart: Regular rate and rhythm. No murmur. Lungs: Clear to auscultation bilaterally. No wheezes, rales, or rhonchi. Breathing is nonlabored. Abdomen: Soft, nontender, nondistended. Extremities: No left lower extremity edema. Right AKA. Psych: Alert and oriented. Urinary Catheter: No Vascular Central Line Catheter: No A/P Assessment and Plan 08/21/17 no change. Blood pressures remain elevated, but patient continues to refuse any medications. 1. Confusion, agitation: Patient was initially admitted under Smith act. The Smith act was lifted by psychiatry. CT of the brain shows a large stable area of encephalomalacia involving the left middle cerebral artery territory. Continue PT/OT/ST. Appreciate psychiatry recommendations. Patient is intermittently agitated. 2. Alcohol abuse: Patient counseled. [facility] protocol. 3. Hypertension: Patient has been refusing all of his medications. 4. DVT prophylaxis: SCDs, GABRIELA hose, Lovenox. Discharge Planning Case management assisting with discharge planning. Patient will need placement, guardianship. Kevin Nunez MD Aug 21, 2017 15:37
[2017-08-22] MEDS: SODIUM CHLORIDE 0.9% FLUSH 10 ML FLUSH IV FLUSH SCH ×2 (09:00→21:00)
[2017-08-22] MEDS: ASPIRIN EC 81 MG TABEC PO SCH (09:00)
[2017-08-22] MEDS: DOCUSATE SODIUM 50 MG/SENNA 8.6 MG TAB PO SCH ×2 (09:00→21:00)
[2017-08-22] MEDS: risperiDONE 0.5 MG TAB PO SCH ×2 (09:00→21:00)
[2017-08-22] MEDS: amLODIPine BESYLATE 5 MG TAB PO SCH (09:00)
[2017-08-22] MEDS: cloNIDine HCL 0.1 MG TAB PO SCH ×2 (09:00→21:00)
[2017-08-22] MEDS: THIAMINE HCL 100 MG TAB PO SCH (09:00)
--- NOTE | 2017-08-22 10:25 | HHI.PR ---
Subjective Remarks Follow up hypertension. Patient remains confused and becomes agitated easily. No events reported overnight. Objective Vitals I/O 08/21/17 08/21/17 08/21/17 08/22/17 08/22/17 08/22/17 07:00 15:00 23:00 07:00 15:00 23:00 Output Total 425 ml Balance -425 ml Output Urine Total 425 ml # Bowel Movements 1 Imaging Last Impressions Head CT 08/14/17 0000 Signed Impressions: Service Date/Time: August 00:23 - CONCLUSION: 1. Large stable area of encephalomalacia involving the left middle cerebral artery territory consistent with an area of infarction. 2. No acute hemorrhage, mass or acute infarction identified. Gopal Mendez MD Objective Remarks General: Disheveled male in no acute distress. HEENT: Area of scarring and hyperpigmentation below the right eye. Heart: Regular rate and rhythm. No murmur. Lungs: Clear to auscultation bilaterally. No wheezes, rales, or rhonchi. Breathing is nonlabored. Abdomen: Soft, nontender, nondistended. Extremities: No left lower extremity edema. Right AKA. Psych: Alert and oriented. Procedures None Urinary Catheter: No Vascular Central Line Catheter: No A/P Assessment and Plan 08/22/17: No change. Blood pressures remain elevated, but patient continues to refuse any medications. He continues to be agitated. 1. Confusion, agitation: Patient was initially admitted under Smith act. The Smith act was lifted by psychiatry. CT of the brain shows a large stable area of encephalomalacia involving the left middle cerebral artery territory. Continue PT/OT/ST. Appreciate psychiatry recommendations. Patient is intermittently agitated. 2. Alcohol abuse: Patient counseled. CIWA protocol. 3. Hypertension: Patient has been refusing all of his medications. 4. DVT prophylaxis: SCDs, Tisha Gonzalezx. Discharge Planning Case management assisting with discharge planning. Patient will need placement, guardianship. Kevin Nunez MD Aug 22, 2017 10:25
[2017-08-22 11:24] VITALS: BP 146/88; PULSE 73; RESP 18; TEMP 96; TEMP 96.4; O2SAT 96
[2017-08-22 15:40] VITALS: BP 164/85; PULSE 69; RESP 18; TEMP 95.7; O2SAT 94
[2017-08-22 20:00] VITALS: BP 168/89; PULSE 82; RESP 16; TEMP 97.9; O2SAT 96
[2017-08-23 00:33] VITALS: BP 163/89; PULSE 80; RESP 17; TEMP 97; O2SAT 98
[2017-08-23 08:00] VITALS: BP 141/76; PULSE 55; RESP 17; TEMP 98.2; O2SAT 98
[2017-08-23] MEDS: risperiDONE 0.5 MG TAB PO SCH ×2 (09:00→21:00)
[2017-08-23] MEDS: ASPIRIN EC 81 MG TABEC PO SCH (09:00)
[2017-08-23] MEDS: amLODIPine BESYLATE 5 MG TAB PO SCH (09:00)
[2017-08-23] MEDS: SODIUM CHLORIDE 0.9% FLUSH 10 ML FLUSH IV FLUSH SCH ×2 (09:00→21:00)
[2017-08-23] MEDS: cloNIDine HCL 0.1 MG TAB PO SCH ×2 (09:00→21:00)
[2017-08-23] MEDS: DOCUSATE SODIUM 50 MG/SENNA 8.6 MG TAB PO SCH ×2 (09:00→21:00)
[2017-08-23] MEDS: THIAMINE HCL 100 MG TAB PO SCH (09:00)
[2017-08-23 12:00] VITALS: BP 182/87; PULSE 63; RESP 17; TEMP 98; O2SAT 98
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
[2017-08-23 16:00] VITALS: BP 164/78; PULSE 77; RESP 17; TEMP 97.1; O2SAT 96
[2017-08-23 20:48] VITALS: BP 159/81; PULSE 72; RESP 20; TEMP 98.6; O2SAT 95
[2017-08-24 00:50] VITALS: BP 139/90; PULSE 75; RESP 20; TEMP 98.4; O2SAT 96
[2017-08-24 08:00] VITALS: BP 188/88; PULSE 65; RESP 20; TEMP 97.4; O2SAT 97
[2017-08-24] MEDS: amLODIPine BESYLATE 5 MG TAB PO SCH ×2 (09:00→09:12)
[2017-08-24] MEDS: cloNIDine HCL 0.1 MG TAB PO SCH ×3 (09:00→21:00)
[2017-08-24] MEDS: ASPIRIN EC 81 MG TABEC PO SCH ×2 (09:00→09:12)
[2017-08-24] MEDS: DOCUSATE SODIUM 50 MG/SENNA 8.6 MG TAB PO SCH ×3 (09:00→21:00)
[2017-08-24] MEDS: SODIUM CHLORIDE 0.9% FLUSH 10 ML FLUSH IV FLUSH SCH ×2 (09:00→21:00)
[2017-08-24] MEDS: risperiDONE 0.5 MG TAB PO SCH ×3 (09:00→21:00)
[2017-08-24] MEDS: THIAMINE HCL 100 MG TAB PO SCH ×2 (09:00→09:13)
[2017-08-24 12:00] VITALS: BP 132/85; PULSE 65; RESP 20; TEMP 97.5; O2SAT 96
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
[2017-08-24 16:00] VITALS: BP 153/82; PULSE 87; RESP 20; TEMP 98.7; O2SAT 97
[2017-08-24 20:00] VITALS: BP 153/88; PULSE 68; RESP 18; TEMP 98.1; O2SAT 96
[2017-08-25] VITALS: BP 176/82; PULSE 67; RESP 18; TEMP 98; O2SAT 96
[2017-08-25 07:50] VITALS: BP 133/84; PULSE 56; RESP 20; TEMP 96.2; O2SAT 94
[2017-08-25] MEDS: THIAMINE HCL 100 MG TAB PO SCH (09:00)
[2017-08-25] MEDS: ASPIRIN EC 81 MG TABEC PO SCH (09:00)
[2017-08-25] MEDS: amLODIPine BESYLATE 5 MG TAB PO SCH (09:00)
[2017-08-25] MEDS: DOCUSATE SODIUM 50 MG/SENNA 8.6 MG TAB PO SCH ×2 (09:00→20:12)
[2017-08-25] MEDS: SODIUM CHLORIDE 0.9% FLUSH 10 ML FLUSH IV FLUSH SCH ×2 (09:00→20:12)
[2017-08-25] MEDS: cloNIDine HCL 0.1 MG TAB PO SCH ×2 (09:00→20:12)
[2017-08-25] MEDS: risperiDONE 0.5 MG TAB PO SCH ×2 (09:00→20:12)
[2017-08-25 11:50] VITALS: BP 161/80; PULSE 75; RESP 20; TEMP 96.6; O2SAT 96
--- NOTE | 2017-08-25 13:23 | HHI.PR ---
Subjective Remarks Patient stable seen in his bedroom discussed on multidisciplinary meeting, the patient continue confused, as per notes he has Dementia associated with alcoholism, seen by Psychiatry specialist recommended to continue Risperdal 0.5 mg BID for behavioral control, Haldol IM for aggressive behavior. Discussed on Multidisciplinary meeting he will need senior living placement not able to do so, okay to transfer to SNF when bed available. Objective Vital Signs Date Time Temp Pulse Resp B/P (MAP) Pulse Ox O2 Delivery O2 Flow Rate FiO2 08/25/17 07:50 96.2 56 20 133/84 (100) 94 08/25/17 00:00 98.0 67 18 176/82 (113) 96 08/24/17 20:00 98.1 68 18 153/88 (109) 96 08/24/17 16:00 98.7 87 20 153/82 (105) 97 I/O 08/24/17 08/24/17 08/24/17 08/25/17 08/25/17 08/25/17 07:00 15:00 23:00 07:00 15:00 23:00 Intake Total 720 ml Output Total 650 ml 1125 ml Balance -650 ml -405 ml Intake Oral 720 ml Output Urine Total 650 ml 1125 ml Imaging Last Impressions Head CT 08/14/17 0000 Signed Impressions: Service Date/Time: August 00:23 - CONCLUSION: 1. Large stable area of encephalomalacia involving the left middle cerebral artery territory consistent with an area of infarction. 2. No acute hemorrhage, mass or acute infarction identified. Gopal Mendez MD Procedures None Other Results Laboratory Tests Test 08/14/17 23:32 08/15/17 01:05 White Blood Count 8.3 TH/MM3 Red Blood Count 4.58 MIL/MM3 Hemoglobin 13.3 GM/DL Hematocrit 39.7 % Mean Corpuscular Volume 86.6 FL Mean Corpuscular Hemoglobin 29.1 PG Mean Corpuscular Hemoglobin Concent 33.6 % Red Cell Distribution Width 15.0 % Platelet Count 306 TH/MM3 Mean Platelet Volume 8.0 FL Neutrophils (%) (Auto) 59.8 % Lymphocytes (%) (Auto) 26.7 % Monocytes (%) (Auto) 10.0 % Eosinophils (%) (Auto) 2.5 % Basophils (%) (Auto) 1.0 % Neutrophils # (Auto) 5.0 TH/MM3 Lymphocytes # (Auto) 2.2 TH/MM3 Monocytes # (Auto) 0.8 TH/MM3 Eosinophils # (Auto) 0.2 TH/MM3 Basophils # (Auto) 0.1 TH/MM3 CBC Comment DIFF FINAL Differential Comment Blood Urea Nitrogen 18 MG/DL Creatinine 0.57 MG/DL Random Glucose 81 MG/DL Total Protein 7.2 GM/DL Albumin 3.4 GM/DL Calcium Level 8.7 MG/DL Alkaline Phosphatase 135 U/L Aspartate Amino Transf (AST/SGOT) 18 U/L Alanine Aminotransferase (ALT/SGPT) 24 U/L Total Bilirubin 0.2 MG/DL Sodium Level 144 MEQ/L Potassium Level 4.1 MEQ/L Chloride Level 108 MEQ/L Carbon Dioxide Level 28.6 MEQ/L Anion Gap 7 MEQ/L Estimat Glomerular Filtration Rate 146 ML/MIN Triglycerides Level 80 MG/DL Cholesterol Level 124 MG/DL LDL Cholesterol 72 MG/DL HDL Cholesterol 35.7 MG/DL Cholesterol/HDL Ratio 3.47 RATIO Salicylates Level LESS THAN 1.7 MG/DL Acetaminophen Level LESS THAN 2.0 MCG/ML Ethyl Alcohol Level LESS THAN 3 MG/DL Urine Opiates Screen NEG Urine Barbiturates Screen NEG Urine Amphetamines Screen NEG Urine Benzodiazepines Screen NEG Urine Cocaine Screen NEG Urine Cannabinoids Screen NEG Objective Remarks General: Disheveled male in no acute distress. HEENT: Area of scarring and hyperpigmentation below the right eye. Heart: Regular rate and rhythm. No murmur. Lungs: Clear to auscultation bilaterally. No wheezes, rales, or rhonchi. Breathing is nonlabored. Abdomen: Soft, nontender, nondistended. Extremities: No left lower extremity edema. Right AKA. Psych: Confused difficult to assess. Medications and IVs Current Medications Medications (Trade) Dose Ordered Sig/Nicolas Route Start Time Stop Time Status Last Admin (Ecotrin Ec) 81 mg DAILY PO 08/16/17 09:00 08/20/17 08:57 (Catapres) 0.1 mg Q12HR PO 08/15/17 21:00 08/16/17 08:15 (Vitamin B1) 100 mg DAILY PO 08/16/17 09:00 08/20/17 08:57 (NS Flush) 2 ml UNSCH PRN IV FLUSH 12/7/17 17:15 (NS Flush) 2 ml BID IV FLUSH 08/15/17 21:00 08/16/17 08:14 (Tylenol) 650 mg Q4H PRN PO 08/15/17 17:15 (Zofran Inj) 4 mg Q6H PRN IVP 08/15/17 17:15 (Narcan Inj) 0.4 mg UNSCH PRN IV PUSH 08/15/17 17:15 (Colleen-Colace) 1 tab BID PO 08/15/17 21:00 08/16/17 08:15 (Milk Of Magnesia Liq) 30 ml Q12H PRN PO 08/15/17 17:15 (Senokot) 17.2 mg Q12H PRN PO 08/15/17 17:15 (Dulcolax Supp) 10 mg DAILY PRN RECTAL 08/15/17 17:15 (Lactulose Liq) 30 ml DAILY PRN PO 08/15/17 17:15 (Romazicon Inj) 0.2 mg Q1M PRN IV PUSH 08/16/17 13:15 (Ativan) 1 mg Q4H PRN PO 08/16/17 13:15 (Ativan) 2 mg Q2H PRN PO 08/16/17 13:15 (Ativan Inj) 2 mg Q1H PRN IV PUSH 08/16/17 13:15 (Ativan Inj) 2 mg Q15M PRN IV PUSH 08/16/17 13:15 (Norvasc) 5 mg DAILY PO 08/16/17 14:00 08/16/17 14:00 (Vasotec Inj) 2.5 mg Q6H PRN IV PUSH 08/16/17 16:15 (risperDAL) 0.5 mg BID PO 08/20/17 21:00 (Haldol Inj) 2 mg Q6H PRN IM 08/20/17 13:15 A/P Assessment and Plan 1. Dementia associated with alcoholism continue confused, the patient already seen by Psychiatry specialist recommended Risperdal for Mood and Haldol for aggressive behavior the patient was admitted as graham act CT of the brain shows a large stable area of encephalomalacia involving the left middle cerebral artery territory. PT recommended for Placement, versus going with relatives up [place]. 2. Alcohol abuse: Patient counseled. [facility] protocol. 3. Hypertension: Patient has been refusing all of his medications. DVT prophylaxis: SCDs, Aimee Gonzalez. Discussed on Multidisciplinary round he will need to have senior living placement if Possible in a Dementia Center. Discharge Planning Athletic Monitor not able to find placement for this patient. Ivan Lau MD Aug 25, 2017 13:23
[2017-08-25 15:50] VITALS: BP 163/89; PULSE 76; RESP 20; TEMP 98.1; O2SAT 96
[2017-08-25 20:00] VITALS: BP 157/87; PULSE 82; RESP 20; TEMP 98.6; O2SAT 95
[2017-08-26 08:00] VITALS: BP 177/87; PULSE 60; RESP 19; TEMP 97.1; O2SAT 92
[2017-08-26] MEDS: risperiDONE 0.5 MG TAB PO SCH (09:00)
[2017-08-26] MEDS: THIAMINE HCL 100 MG TAB PO SCH (09:00)
[2017-08-26] MEDS: SODIUM CHLORIDE 0.9% FLUSH 10 ML FLUSH IV FLUSH SCH ×2 (09:00→21:00)
[2017-08-26] MEDS: amLODIPine BESYLATE 5 MG TAB PO SCH (09:00)
[2017-08-26] MEDS: ASPIRIN EC 81 MG TABEC PO SCH (09:00)
[2017-08-26] MEDS: DOCUSATE SODIUM 50 MG/SENNA 8.6 MG TAB PO SCH ×2 (09:00→21:00)
[2017-08-26] MEDS: cloNIDine HCL 0.1 MG TAB PO SCH ×2 (09:00→21:00)
[2017-08-26] MEDS ORDERED: WHEEMIS3 (10:34)
[2017-08-26 12:00] VITALS: BP 142/82; PULSE 72; RESP 17; TEMP 96.8; O2SAT 93
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
[2017-08-26 14:10] VITALS: O2SAT 93
[2017-08-26 16:00] VITALS: BP 185/93; PULSE 86; RESP 18; TEMP 97; O2SAT 97
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
[2017-08-26 18:03] VITALS: O2SAT 97
[2017-08-26 20:00] VITALS: BP 163/91; PULSE 67; RESP 18; TEMP 98.7; O2SAT 95
[2017-08-26] MEDS: risperiDONE 1 MG TAB PO SCH (21:00)
[2017-08-27 08:00] VITALS: BP 145/84; PULSE 63; RESP 18; TEMP 97.8; O2SAT 95
[2017-08-27] MEDS: amLODIPine BESYLATE 5 MG TAB PO SCH (09:00)
[2017-08-27] MEDS: cloNIDine HCL 0.1 MG TAB PO SCH ×2 (09:00→21:00)
[2017-08-27] MEDS: risperiDONE 1 MG TAB PO SCH ×2 (09:00→21:00)
[2017-08-27] MEDS: DOCUSATE SODIUM 50 MG/SENNA 8.6 MG TAB PO SCH ×2 (09:00→21:00)
[2017-08-27] MEDS: ASPIRIN EC 81 MG TABEC PO SCH (09:00)
[2017-08-27] MEDS: THIAMINE HCL 100 MG TAB PO SCH (09:00)
[2017-08-27] MEDS: SODIUM CHLORIDE 0.9% FLUSH 10 ML FLUSH IV FLUSH SCH ×2 (09:28→21:00)
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
[2017-08-27 20:00] VITALS: BP 185/98; PULSE 76; RESP 22; TEMP 99.2; O2SAT 96
[2017-08-28] VITALS: BP 166/99; PULSE 79; RESP 22; TEMP 97.1; O2SAT 97
[2017-08-28] MEDS: cloNIDine HCL 0.1 MG TAB PO SCH ×2 (09:02→21:00)
[2017-08-28] MEDS: SODIUM CHLORIDE 0.9% FLUSH 10 ML FLUSH IV FLUSH SCH ×2 (09:02→21:00)
[2017-08-28] MEDS: THIAMINE HCL 100 MG TAB PO SCH (09:03)
[2017-08-28] MEDS: risperiDONE 1 MG TAB PO SCH ×2 (09:03→21:00)
[2017-08-28] MEDS: amLODIPine BESYLATE 5 MG TAB PO SCH (09:03)
[2017-08-28] MEDS: ASPIRIN EC 81 MG TABEC PO SCH (09:03)
[2017-08-28] MEDS: DOCUSATE SODIUM 50 MG/SENNA 8.6 MG TAB PO SCH ×2 (09:03→21:00)
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
[2017-08-28 16:00] VITALS: BP 147/78; PULSE 66; RESP 18; TEMP 97.6; O2SAT 95
[2017-08-28 20:00] VITALS: BP 146/84; PULSE 81; RESP 20; TEMP 99; O2SAT 96
[2017-08-29] VITALS: BP 172/92; PULSE 60; RESP 20; TEMP 98.2; O2SAT 95
[2017-08-29] MEDS: cloNIDine HCL 0.1 MG TAB PO SCH (09:00)
[2017-08-29] MEDS: DOCUSATE SODIUM 50 MG/SENNA 8.6 MG TAB PO SCH ×2 (09:00→21:55)
[2017-08-29] MEDS: amLODIPine BESYLATE 5 MG TAB PO SCH (09:00)
[2017-08-29] MEDS: ASPIRIN EC 81 MG TABEC PO SCH (09:00)
[2017-08-29] MEDS: risperiDONE 1 MG TAB PO SCH ×2 (09:00→21:55)
[2017-08-29] MEDS: SODIUM CHLORIDE 0.9% FLUSH 10 ML FLUSH IV FLUSH SCH ×2 (09:00→21:55)
[2017-08-29] MEDS: THIAMINE HCL 100 MG TAB PO SCH (09:00)
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
[2017-08-29] MEDS: cloNIDine HCL 0.3 MG/24 HR PATCH T-DERMAL SCH (12:00)
[2017-08-29] MEDS: HALOPERIDOL DECANOATE 50 MG/ML VIAL IM SCH (12:00)
[2017-08-29 16:00] VITALS: BP 161/85; PULSE 62; RESP 18; TEMP 97.1; O2SAT 97
[2017-08-29 20:08] VITALS: O2SAT 97
[2017-08-30 00:51] VITALS: BP 152/88; PULSE 70; RESP 20; TEMP 98.4; O2SAT 94
[2017-08-30] MEDS: THIAMINE HCL 100 MG TAB PO SCH (09:00)
[2017-08-30] MEDS: SODIUM CHLORIDE 0.9% FLUSH 10 ML FLUSH IV FLUSH SCH ×2 (09:00→20:26)
[2017-08-30] MEDS: DOCUSATE SODIUM 50 MG/SENNA 8.6 MG TAB PO SCH ×2 (09:00→20:26)
[2017-08-30] MEDS: risperiDONE 1 MG TAB PO SCH ×2 (09:00→20:26)
[2017-08-30] MEDS: ASPIRIN EC 81 MG TABEC PO SCH (09:00)
[2017-08-30 13:55] VITALS: BP 154/86; PULSE 71; RESP 17; O2SAT 94
--- NOTE | 2017-08-30 14:24 | HHI.PR ---
Subjective Remarks Patient resting in bed he come up with an appropriate words Is noncompliant discussed with the nurse not accepting blood work Reported uncontrolled blood pressure Talked to the patient again he previously refused Catapres patch, I also nurse to check blood pressure every hour hours to monitor Objective Vitals Vital Signs Date Time Temp Pulse Resp B/P (MAP) Pulse Ox O2 Delivery O2 Flow Rate FiO2 08/30/17 13:55 71 17 154/86 (108) 94 08/30/17 00:51 98.4 70 20 152/88 (109) 94 08/29/17 20:08 97 08/29/17 16:00 97.1 62 18 161/85 (110) 97 I/O 08/29/17 08/29/17 08/29/17 08/30/17 08/30/17 08/30/17 07:00 15:00 23:00 07:00 15:00 23:00 Intake Total 720 ml 1600 ml 240 ml Output Total 1000 ml 500 ml 500 ml Balance -280 ml 1100 ml -260 ml Intake Oral 720 ml 1600 ml 240 ml Output Urine Total 1000 ml 500 ml 500 ml # Bowel Movements 0 0 Objective Remarks GENERAL: This is a well-nourished, well-developed patient, in no apparent distress. SKIN: No rashes, warm and dry HEAD: Atraumatic. Normocephalic. EYES: Pupils equal round and reactive. Extraocular motions intact. No scleral icterus. ENT: Nose without bleeding, or drainage, Airway patent. NECK: Trachea midline. Supple CARDIOVASCULAR: Regular rate and rhythm without murmurs, gallops, or rubs. RESPIRATORY: Fair air entry bilaterally. No wheezes, rales, or rhonchi. GASTROINTESTINAL: Abdomen soft, non-tender, nondistended. Positive bowel sounds MUSCULOSKELETAL: Extremities without clubbing, cyanosis, or edema. Pedal pulses appreciated NEUROLOGICAL: Awake and alert. Moves all extremity. Normal speech.no focal neurological deficit Procedures None A/P Assessment and Plan 08/30: I asked the nurse to check his blood pressure and it was 146/84, will continue checking blood pressure goes up we'll need to try again with medication or patch A/P: 1. Dementia associated with alcoholism continue confused, the patient already seen by Psychiatry specialist recommended Risperdal for Mood and Haldol for aggressive behavior the patient was admitted as graham act CT of the brain shows a large stable area of encephalomalacia involving the left middle cerebral artery territory. PT recommended for Placement, versus going with relatives [place] in [place]. WILL NEED [facility] TEMI 2. Alcohol abuse: Patient counseled. [facility] protocol. 3. Hypertension: Patient has been refusing all of his medications. Catapres patch ordered but patient refused 4. Noncompliance 5. Does not have capacity to make his own decisions per psychiatry but did not cooperate with psychiatry TO have a good exam with them Case management is trying to find a safe place for discharge Family does not want him to come back to them DVT prophylaxis: SCDs, Aimee Gonzalez. Discharge Planning Patient does not have capacity per psychiatry to make decisions. Hopefully family will help with decision-making Brittany Black MD Aug 30, 2017 14:24
[2017-08-30 20:00] VITALS: BP 146/84; PULSE 73; RESP 20; TEMP 98.5; O2SAT 95
[2017-08-31 08:00] VITALS: BP 203/107; PULSE 68; RESP 17; TEMP 96; O2SAT 98
[2017-08-31] MEDS: ASPIRIN EC 81 MG TABEC PO SCH (08:54)
[2017-08-31] MEDS: THIAMINE HCL 100 MG TAB PO SCH (08:54)
[2017-08-31] MEDS: risperiDONE 1 MG TAB PO SCH (08:54)
[2017-08-31] MEDS: DOCUSATE SODIUM 50 MG/SENNA 8.6 MG TAB PO SCH (08:54)
[2017-08-31] MEDS: SODIUM CHLORIDE 0.9% FLUSH 10 ML FLUSH IV FLUSH SCH (08:54)
[2017-08-31 09:50] VITALS: BP 134/63
[2017-08-31 11:49] VITALS: O2SAT 98
[2017-08-31 12:00] VITALS: BP 181/101; PULSE 78; RESP 17; TEMP 97.9; O2SAT 95
--- NOTE | 2017-08-31 15:02 | HHI.PR ---
Subjective Remarks Patient very inappropriate, "get out off my F.. Face" Patient has been having high blood pressure is refusing all kind of treatment or lab work Objective Vitals Vital Signs Date Time Temp Pulse Resp B/P (MAP) Pulse Ox O2 Delivery O2 Flow Rate FiO2 08/31/17 12:00 97.9 78 17 181/101 (127) 95 08/31/17 11:49 98 08/31/17 09:50 134/63 (86) 08/31/17 08:00 96.0 68 17 203/107 (139) 98 08/30/17 20:00 98.5 73 20 146/84 (104) 95 I/O 08/30/17 08/30/17 08/30/17 08/31/17 08/31/17 08/31/17 07:00 15:00 23:00 07:00 15:00 23:00 Intake Total 240 ml 960 ml Output Total 500 ml 650 ml Balance -260 ml 310 ml Intake Oral 240 ml 960 ml Output Urine Total 500 ml 650 ml # Bowel Movements 0 Objective Remarks Physical exam hasn't been done due to patient being inappropriate and refused to be examined Procedures None A/P Assessment and Plan 08/30: I asked the nurse to check his blood pressure and it was 146/84, will continue checking blood pressure goes up we'll need to try again with medication or patch 08/31: Patient continued to refuse hypertension treatment A/P: 1. Dementia associated with alcoholism continue confused, the patient already seen by Psychiatry specialist recommended Risperdal for Mood and Haldol for aggressive behavior the patient was admitted as graham act CT of the brain shows a large stable area of encephalomalacia involving the left middle cerebral artery territory. PT recommended for Placement, versus going with relatives up [place] in [place]. WILL NEED DEPO HALDOL IM 2. Alcohol abuse: Patient counseled. [facility] protocol. 3. Hypertension: Patient has been refusing all of his medications. Catapres patch ordered but patient refused 4. Noncompliance 5. Does not have capacity to make his own decisions per psychiatry but did not cooperate with psychiatry TO have a good exam with them Case management is trying to find a safe place for discharge Family does not want him to come back to them DVT prophylaxis: SCDs, GABRIELA hosyuliet, Lovenox. Discharge Planning Patient does not have capacity per psychiatry to make decisions. Hopefully family will help with decision-making Brittany Black MD Aug 31, 2017 15:02
[2017-08-31 16:00] VITALS: BP 167/83; PULSE 69; RESP 17; TEMP 97.7; O2SAT 96
[2017-08-31 20:00] VITALS: BP 144/84; PULSE 74; RESP 20; TEMP 97.8; O2SAT 95
[2017-09-01] MEDS: risperiDONE 1 MG TAB PO SCH ×2 (08:27→20:38)
[2017-09-01] MEDS: DOCUSATE SODIUM 50 MG/SENNA 8.6 MG TAB PO SCH ×2 (08:27→20:39)
[2017-09-01] MEDS: SODIUM CHLORIDE 0.9% FLUSH 10 ML FLUSH IV FLUSH SCH ×2 (08:27→20:39)
[2017-09-01] MEDS: ASPIRIN EC 81 MG TABEC PO SCH (08:28)
[2017-09-01] MEDS: THIAMINE HCL 100 MG TAB PO SCH (08:28)
--- NOTE | 2017-09-01 16:22 | HHI.PR ---
Subjective Remarks Patient sitting on the edge of the bed but he is not answering any question and obviously he is refusing exam I tried to talk to him but he is totally ignore me Objective Vitals Vital Signs Date Time Temp Pulse Resp B/P (MAP) Pulse Ox O2 Delivery O2 Flow Rate FiO2 08/31/17 20:00 97.8 74 20 144/84 (104) 95 I/O 08/31/17 08/31/17 08/31/17 09/01/17 09/01/17 09/01/17 07:00 15:00 23:00 07:00 15:00 23:00 Intake Total 1680 ml 480 ml Output Total 350 ml 900 ml Balance 1330 ml -420 ml Intake Oral 1680 ml 480 ml Output Urine Total 350 ml 900 ml # Bowel Movements 1 0 Objective Remarks Physical exam hasn't been done due to patient being inappropriate and refused to be examined Procedures None A/P Assessment and Plan 08/30: I asked the nurse to check his blood pressure and it was 146/84, will continue checking blood pressure goes up we'll need to try again with medication or patch 08/31: Patient continued to refuse hypertension treatment 10/02: Patient awake alert sitting on the edge of the bed but he is ignoring anything I say, he is refusing any medication or lab work A/P: 1. Dementia associated with alcoholism continue confused, the patient already seen by Psychiatry specialist recommended Risperdal for Mood and Haldol for aggressive behavior the patient was admitted as graham act CT of the brain shows a large stable area of encephalomalacia involving the left middle cerebral artery territory. PT recommended for Placement, versus going with relatives up [place] in [place]. WILL NEED DEPO HALDOL IM 2. Alcohol abuse: Patient counseled. [facility] protocol. 3. Hypertension: Patient has been refusing all of his medications. Catapres patch ordered but patient refused 4. Noncompliance 5. Does not have capacity to make his own decisions per psychiatry but did not cooperate with psychiatry TO have a good exam with them Case management is trying to find a safe place for discharge Family does not want him to come back to them DVT prophylaxis: SCDs, GABRIELA garay, Lovenox. Discharge Planning Patient does not have capacity per psychiatry to make decisions. Hopefully family will help with decision-making Brittany Black MD Sep 01, 2017 16:22
[2017-09-01 20:35] VITALS: BP 181/93; PULSE 66; RESP 18; TEMP 98.1; O2SAT 96
[2017-09-02] MEDS: SODIUM CHLORIDE 0.9% FLUSH 10 ML FLUSH IV FLUSH SCH ×2 (07:27→20:20)
[2017-09-02 08:00] VITALS: BP 155/80; PULSE 67; RESP 17; TEMP 96.3; O2SAT 98
[2017-09-02] MEDS: DOCUSATE SODIUM 50 MG/SENNA 8.6 MG TAB PO SCH ×2 (08:55→20:21)
[2017-09-02] MEDS: THIAMINE HCL 100 MG TAB PO SCH (08:55)
[2017-09-02] MEDS: risperiDONE 1 MG TAB PO SCH ×2 (08:55→20:21)
[2017-09-02] MEDS: ASPIRIN EC 81 MG TABEC PO SCH (08:55)
[2017-09-02 12:00] VITALS: BP 120/71; PULSE 76; RESP 17; TEMP 99; O2SAT 96
--- NOTE | 2017-09-02 13:19 | HHI.PR ---
Subjective Remarks refused to be seen "get out of my face " Objective Vitals Vital Signs Date Time Temp Pulse Resp B/P (MAP) Pulse Ox O2 Delivery O2 Flow Rate FiO2 09/02/17 12:00 99.0 76 17 120/71 (87) 96 09/02/17 08:00 96.3 67 17 155/80 (105) 98 09/01/17 20:35 98.1 66 18 181/93 (122) 96 I/O 09/01/17 09/01/17 09/01/17 09/02/17 09/02/17 09/02/17 07:00 15:00 23:00 07:00 15:00 23:00 Intake Total 480 ml 360 ml Output Total 900 ml 500 ml 1575 ml Balance -420 ml -500 ml -1215 ml Intake Oral 480 ml 360 ml Output Urine Total 900 ml 500 ml 1575 ml # Bowel Movements 0 0 Objective Remarks Physical exam hasn't been done due to patient b refused to be examined Procedures None A/P Assessment and Plan 09/02:pt refused to be seen or examined , lab work or any tx A/P: 1. Dementia associated with alcoholism continue confused, the patient already seen by Psychiatry specialist recommended Risperdal for Mood and Haldol for aggressive behavior the patient was admitted as graham act CT of the brain shows a large stable area of encephalomalacia involving the left middle cerebral artery territory. PT recommended for Placement, versus going with relatives up [place] in [place]. 2. Alcohol abuse: Patient counseled. [facility] protocol. 3. Hypertension: Patient has been refusing all of his medications. Catapres patch ordered but patient refused 4. Noncompliance 5. Does not have capacity to make his own decisions per psychiatry but did not cooperate with psychiatry TO have a good exam with them Case management is trying to find a safe place for discharge Family does not want him to come back to them DVT prophylaxis: SCDs, Tisha Gonzalezx. Discharge Planning Patient does not have capacity per psychiatry to make decisions. Hopefully family will help with decision-making Brittany Black MD Sep 02, 2017 13:19
[2017-09-02 16:00] VITALS: BP 185/83; PULSE 71; RESP 17; TEMP 98.1; O2SAT 99
[2017-09-02 20:12] VITALS: BP 127/83; PULSE 92; RESP 16; TEMP 98.8; O2SAT 98
[2017-09-03 00:07] VITALS: BP 142/73; PULSE 89; RESP 17; TEMP 98.7; O2SAT 96
[2017-09-03] MEDS: SODIUM CHLORIDE 0.9% FLUSH 10 ML FLUSH IV FLUSH SCH ×2 (08:18→21:00)
[2017-09-03] MEDS: risperiDONE 1 MG TAB PO SCH ×2 (08:19→21:00)
[2017-09-03] MEDS: ASPIRIN EC 81 MG TABEC PO SCH (08:19)
[2017-09-03] MEDS: DOCUSATE SODIUM 50 MG/SENNA 8.6 MG TAB PO SCH ×2 (08:19→21:00)
[2017-09-03] MEDS: THIAMINE HCL 100 MG TAB PO SCH (08:19)
[2017-09-03 12:00] VITALS: BP 140/80; PULSE 63; RESP 17; TEMP 97.1; O2SAT 96
[2017-09-03 16:00] VITALS: BP 183/93; PULSE 91; RESP 17; TEMP 96.3; O2SAT 97
[2017-09-03 20:00] VITALS: BP 147/88; PULSE 90; RESP 17; TEMP 98.5; O2SAT 96
--- NOTE | 2017-09-03 23:32 | HHI.PR ---
Subjective Remarks Patient seen this morning around 10:30 AM. Verbally refusing to be seen,, however subsequently does allow exam, complying with directions to breathe deeply. Asks for lites to be turned off. Objective Vital Signs Date Time Temp Pulse Resp B/P (MAP) Pulse Ox O2 Delivery O2 Flow Rate FiO2 09/03/17 20:00 98.5 90 17 147/88 (107) 96 09/03/17 16:00 96.3 91 17 183/93 (123) 97 09/03/17 12:00 97.1 63 17 140/80 (100) 96 09/03/17 00:07 98.7 89 17 142/73 (96) 96 I/O 09/03/17 09/03/17 09/03/17 09/04/17 09/04/17 09/04/17 07:00 15:00 23:00 07:00 15:00 23:00 Intake Total 680 ml 1440 ml Output Total 1000 ml 400 ml Balance -320 ml 1040 ml Intake Oral 680 ml 1440 ml Output Urine Total 1000 ml 400 ml # Bowel Movements 1 Procedures None Objective Remarks GENERAL: patient sitting up in bed.speech is clear, however patient disoriented. SKIN: Warm and dry. HEAD: Normocephalic. EYES: No scleral icterus. No injection or drainage. NECK: Supple, trachea midline. No JVD. CARDIOVASCULAR: Regular rate and rhythm without murmurs, gallops, or rubs. RESPIRATORY: Breath sounds equal bilaterally. No accessory muscle use. GASTROINTESTINAL: Abdomen soft, non-tender, nondistended. MUSCULOSKELETAL: No cyanosis, or edema. BACK: Nontender without obvious deformity. No CVA tenderness. A/P Assessment and Plan 09/03: Continues with confusion, refusing most medical care. Awaiting guardian. Appreciate case management assistance. A/P: 1. Dementia associated with alcoholism continue confused, the patient already seen by Psychiatry specialist recommended Risperdal for Mood and Haldol for aggressive behavior the patient was admitted as graham act CT of the brain shows a large stable area of encephalomalacia involving the left middle cerebral artery territory. PT recommended for Placement, versus going [place]. 2. Alcohol abuse: Patient counseled. [facility] protocol. 3. Hypertension: Patient has been refusing all of his medications. Catapres patch ordered but patient refused 4. Noncompliance 5. Does not have capacity to make his own decisions per psychiatry but did not cooperate with psychiatry TO have a good exam with them Case management is trying to find a safe place for discharge Family does not want him to come back to them DVT prophylaxis: GABRIELA Marcelo Lovenox. Discharge Planning case aide working on safe place for discharge. Working on finding appropriate guardian. Appreciate case management assistance. Herbert Garcia MD Sep 03, 2017 23:32
[2017-09-04 00:20] VITALS: BP 129/83; PULSE 89; RESP 17; TEMP 98.3; O2SAT 96
[2017-09-04 08:00] VITALS: BP 140/73; PULSE 79; RESP 17; TEMP 97.5; O2SAT 97
[2017-09-04] MEDS: DOCUSATE SODIUM 50 MG/SENNA 8.6 MG TAB PO SCH ×2 (08:12→19:51)
[2017-09-04] MEDS: SODIUM CHLORIDE 0.9% FLUSH 10 ML FLUSH IV FLUSH SCH ×2 (08:12→19:51)
[2017-09-04] MEDS: ASPIRIN EC 81 MG TABEC PO SCH (08:12)
[2017-09-04] MEDS: risperiDONE 1 MG TAB PO SCH ×2 (08:12→19:51)
[2017-09-04] MEDS: THIAMINE HCL 100 MG TAB PO SCH (08:12)
[2017-09-04 12:00] VITALS: BP 125/81; PULSE 68; RESP 16; TEMP 97.6; O2SAT 91
[2017-09-04 16:00] VITALS: BP 180/95; PULSE 70; RESP 21; TEMP 98.3; O2SAT 92
--- NOTE | 2017-09-04 16:15 | HHI.PR ---
Subjective Remarks patient laying in his bed staring to the ceiling, he ignored me totally not answering question Objective Vitals Vital Signs Date Time Temp Pulse Resp B/P (MAP) Pulse Ox O2 Delivery O2 Flow Rate FiO2 09/04/17 12:00 97.6 68 16 125/81 (96) 91 09/04/17 08:00 97.5 79 17 140/73 (95) 97 09/04/17 00:20 98.3 89 17 129/83 (98) 96 09/03/17 20:00 98.5 90 17 147/88 (107) 96 I/O 09/03/17 09/03/17 09/03/17 09/04/17 09/04/17 09/04/17 07:00 15:00 23:00 07:00 15:00 23:00 Intake Total 680 ml 1440 ml 580 ml Output Total 1000 ml 400 ml 880 ml Balance -320 ml 1040 ml -300 ml Intake Oral 680 ml 1440 ml 580 ml Output Urine Total 1000 ml 400 ml 880 ml # Bowel Movements 1 Objective Remarks Patient is not cooperative with physical exam Procedures None A/P Assessment and Plan 09/04:pt not answering question, not cooperative with physical exam A/P: 1. Dementia associated with alcoholism continue confused, the patient already seen by Psychiatry specialist recommended Risperdal for Mood and Haldol for aggressive behavior the patient was admitted as graham act CT of the brain shows a large stable area of encephalomalacia involving the left middle cerebral artery territory. PT recommended for Placement, versus going with relatives up [place] in [place]. 2. Alcohol abuse: Patient counseled. [facility] protocol. 3. Hypertension: Patient has been refusing all of his medications. Catapres patch ordered but patient refused 4. Noncompliance 5. Does not have capacity to make his own decisions per psychiatry but did not cooperate with psychiatry TO have a good exam with them Case management is trying to find a safe place for discharge Family does not want him to come back to them DVT prophylaxis: SCDs, Aimee Gonzalez. Discharge Planning Patient does not have capacity per psychiatry to make decisions. Hopefully family will help with decision-making Brittany Black MD Sep 04, 2017 16:15
[2017-09-04 20:00] VITALS: BP 136/81; PULSE 70; RESP 18; TEMP 96.9; O2SAT 98
[2017-09-05 00:17] VITALS: BP 133/79; PULSE 65; RESP 18; TEMP 96.6; O2SAT 97
[2017-09-05 08:00] VITALS: BP 147/84; PULSE 57; RESP 16; TEMP 97.6; O2SAT 93
[2017-09-05] MEDS: DOCUSATE SODIUM 50 MG/SENNA 8.6 MG TAB PO SCH ×2 (08:56→21:00)
[2017-09-05] MEDS: SODIUM CHLORIDE 0.9% FLUSH 10 ML FLUSH IV FLUSH SCH ×2 (08:56→21:00)
[2017-09-05] MEDS: ASPIRIN EC 81 MG TABEC PO SCH (08:56)
[2017-09-05] MEDS: risperiDONE 1 MG TAB PO SCH ×2 (08:56→21:00)
[2017-09-05] MEDS: THIAMINE HCL 100 MG TAB PO SCH (08:57)
[2017-09-05] MEDS: cloNIDine HCL 0.3 MG/24 HR PATCH T-DERMAL SCH ×3 (11:54→15:37)
[2017-09-05 12:00] VITALS: BP 167/90; PULSE 73; RESP 19; TEMP 97.4; O2SAT 93
--- NOTE | 2017-09-05 13:30 | HHI.PR ---
Subjective Remarks Patient sitting on the chair awake alert, he is talkative today but noncoherent , I discussed with the sample case porter and with the nurse no facilities accepting Objective Vitals Vital Signs Date Time Temp Pulse Resp B/P (MAP) Pulse Ox O2 Delivery O2 Flow Rate FiO2 09/05/17 12:00 97.4 73 19 167/90 (115) 93 09/05/17 08:00 97.6 57 16 147/84 (105) 93 09/05/17 00:17 96.6 65 18 133/79 (97) 97 09/04/17 20:00 96.9 70 18 136/81 (99) 98 09/04/17 16:00 98.3 70 21 180/95 (123) 92 I/O 09/04/17 09/04/17 09/04/17 09/05/17 09/05/17 09/05/17 06:59 14:59 22:59 06:59 14:59 22:59 Intake Total 580 ml 1830 ml 240 ml Output Total 880 ml 1725 ml 50 ml Balance -300 ml 105 ml 190 ml Intake Oral 580 ml 1830 ml 240 ml Output Urine Total 880 ml 1725 ml 50 ml # Bowel Movements 0 Objective Remarks Awake alert no acute distress Procedures None A/P Assessment and Plan 09/04:pt not answering question, not cooperative with physical exam 09/05: Previously assessed by psych did not recommend inpatient psych admission however patient is noncoherent today, discussed with sample case porterassembly manager accepting, we may need to reconsult psych A/P: 1. Dementia associated with alcoholism continue confused, the patient already seen by Psychiatry specialist recommended Risperdal for Mood and Haldol for aggressive behavior the patient was admitted as graham act CT of the brain shows a large stable area of encephalomalacia involving the left middle cerebral artery territory. PT recommended for Placement, versus going with relatives [place] in [place]. 2. Alcohol abuse: Patient counseled. [facility] protocol. 3. Hypertension: Patient has been refusing all of his medications. Catapres patch ordered but patient refused 4. Noncompliance 5. Does not have capacity to make his own decisions per psychiatry but did not cooperate with psychiatry TO have a good exam with them Case management is trying to find a safe place for discharge Family does not want him to come back to them DVT prophylaxis: SCDs, GABRIELA hose, Lovenox. Discharge Planning Patient does not have capacity per psychiatry to make decisions. Hopefully family will help with decision-making Brittany Black MD Sep 05, 2017 13:30
[2017-09-05 16:00] VITALS: BP 171/84; PULSE 63; RESP 21; TEMP 97.8; O2SAT 98
[2017-09-06] VITALS: BP 172/87; PULSE 62; RESP 19; TEMP 97.5; O2SAT 95
[2017-09-06 04:00] VITALS: BP 163/83; PULSE 59; RESP 19; TEMP 96.1; O2SAT 96
[2017-09-06] MEDS: DOCUSATE SODIUM 50 MG/SENNA 8.6 MG TAB PO SCH ×2 (08:06→21:00)
[2017-09-06] MEDS: THIAMINE HCL 100 MG TAB PO SCH (08:06)
[2017-09-06] MEDS: SODIUM CHLORIDE 0.9% FLUSH 10 ML FLUSH IV FLUSH SCH ×2 (08:06→21:00)
[2017-09-06] MEDS: risperiDONE 1 MG TAB PO SCH ×2 (08:06→21:00)
[2017-09-06] MEDS: ASPIRIN EC 81 MG TABEC PO SCH (08:06)
[2017-09-06 12:00] VITALS: BP 133/84; PULSE 73; RESP 17; TEMP 97.9; O2SAT 94
--- NOTE | 2017-09-06 15:12 | HHI.PR ---
Subjective Remarks Follow-up for dementia and placement Patient had no complaints but also the same time was confused. Objective Vitals Vital Signs Date Time Temp Pulse Resp B/P (MAP) Pulse Ox O2 Delivery O2 Flow Rate FiO2 09/06/17 12:00 97.9 73 17 133/84 (100) 94 09/06/17 04:00 96.1 59 19 163/83 (109) 96 09/06/17 00:00 97.5 62 19 172/87 (115) 95 09/05/17 16:00 97.8 63 21 171/84 (113) 98 I/O 09/05/17 09/05/17 09/05/17 09/06/17 09/06/17 09/06/17 07:00 15:00 23:00 07:00 15:00 23:00 Intake Total 240 ml 1700 ml 600 ml Output Total 50 ml 1200 ml 275 ml 200 ml Balance 190 ml 500 ml 325 ml -200 ml Intake Oral 240 ml 1700 ml 600 ml Output Urine Total 50 ml 1200 ml 275 ml 200 ml # Bowel Movements 0 Objective Remarks GENERAL: in NAD CARDIOVASCULAR: Regular rate and rhythm without murmurs, gallops, or rubs. RESPIRATORY: Breath sounds equal bilaterally. No accessory muscle use. GASTROINTESTINAL: Abdomen soft, non-tender, nondistended. Procedures None Medications and IVs Current Medications Labetalol HCl (Trandate Inj) 20 mg ONCE ONCE IV PUSH Last administered on 08/15 00:28; Start 08/14/17 at 22:45; Stop 08/14/17 at 22:46; Status DC Lorazepam (Ativan Inj) 1 mg ONCE ONCE IV PUSH Last administered on 08/15/17 00:28; Start 08/14/17 at 23:00; Stop 08/14/17 at 23:01; Status DC Clonidine (Catapres) 0.2 mg ONCE ONCE PO Last administered on 08/15/17 00:59 ; Start 08/15/17 at 00:45; Stop 08/15/17 at 00:46; Status DC Acetaminophen (Tylenol) 500 mg ONCE ONCE PO Last administered on 08/15/17 05: 11; Start 08/15/17 at 04:15; Stop 08/15/17 at 04:16; Status DC Naproxen (Naprosyn) 500 mg ONCE ONCE PO Last administered on 08/15/17 05:43; Start 08/15/17 at 05:30; Stop 08/15/17 at 05:31; Status DC Aspirin (Ecotrin Ec) 81 mg DAILY PO Last administered on 08/20/17 08:57; Start 08/16/17 at 09:00 Aspirin (Ecotrin Ec) 81 mg DAILY PO ; Start 08/16/17 at 09:00; Status Cancel Clonidine (Catapres) 0.1 mg Q12HR PO Last administered on 08/16/17 08:15; Start 08/15/17 at 21:00; Status Future Hold Thiamine HCl (Vitamin B1) 100 mg DAILY PO Last administered on 08/20/17 08:57 ; Start 08/16/17 at 09:00 Sodium Chloride (NS Flush) 2 ml UNSCH PRN IV FLUSH FLUSH AFTER USING IV ACCESS ; Start 08/15/17 at 17:15 Sodium Chloride (NS Flush) 2 ml BID IV FLUSH Last administered on 08/16/17 08: 14; Start 08/15/17 at 21:00 Acetaminophen (Tylenol) 650 mg Q4H PRN PO TEMP > 100.4; Start 08/15/17 at 17:15 Ondansetron HCl (Zofran Inj) 4 mg Q6H PRN IVP NAUSEA OR VOMITING; Start at 17:15 Naloxone HCl (Narcan Inj) 0.4 mg UNSCH PRN IV PUSH SEE LABEL COMMENTS; Start 08/15/17 at 17:15 Senna/Docusate Sodium (Colleen-Colace) 1 tab BID PO Last administered on 08:15; Start 08/15/17 at 21:00 Magnesium Hydroxide (Milk Of Magnesia Liq) 30 ml Q12H PRN PO Mild constipation ; Start 08/15/17 at 17:15 Sennosides (Senokot) 17.2 mg Q12H PRN PO Moderate constipation; Start 08/15/17 at 17:15 Bisacodyl (Dulcolax Supp) 10 mg DAILY PRN RECTAL SEVERE CONSITIPATION; Start 08/15/17 at 17:15 Lactulose (Lactulose Liq) 30 ml DAILY PRN PO SEVERE CONSITIPATION; Start at 17:15 Flumazenil (Romazicon Inj) 0.2 mg Q1M PRN IV PUSH SEE LABEL COMMENTS; Start at 13:15 Lorazepam (Ativan) 1 mg Q4H PRN PO CIWA 8 - 10; Start 08/16/17 at 13:15 Lorazepam (Ativan) 2 mg Q2H PRN PO CIWA 11-14; Start 08/16/17 at 13:15 Lorazepam (Ativan Inj) 2 mg Q1H PRN IV PUSH CIWA 15-20; Start 08/16/17 at 13:15 Lorazepam (Ativan Inj) 2 mg Q15M PRN IV PUSH CIWA > 20; Start 08/16/17 at 13:15 Amlodipine Besylate (Norvasc) 5 mg DAILY PO Last administered on 08/16/17t 14: 00; Start 08/16/17 at 14:00; Status Future Hold Enalaprilat (Vasotec Inj) 2.5 mg Q6H PRN IV PUSH SBP> OR = 180, DBP> OR = 100; Start 08/16/17 at 16:15 Risperidone (risperDAL) 0.5 mg BID PO ; Start 08/20/17 at 21:00; Stop at 13:06; Status DC Haloperidol Lactate (Haldol Inj) 2 mg Q6H PRN IM severe agitation and aggressi ; Start 08/20/17 at 13:15 Risperidone (risperDAL) 1 mg BID PO Last administered on 09/01/17t 20:38; Start 08/26/17 at 21:00 Clonidine (Catapres) 0.1 mg Q4H PRN PO SBP>160, DBP>90; Start 08/26/17 at 16: 15 Clonidine (Catapres-Tts 0.3 Mg Patch.7d) 1 patch Q7D T-DERMAL ; Start 08/29/17 at 12:00 Haloperidol Decanoate (Haldol Decanoate Inj) 50 mg Q28D IM ; Start 08/29/17 at 12:00 A/P Assessment and Plan 61-year-old male who present with dementia and agitation dementia -Psychiatry specialist and psychiatrist recommended Risperdal for mood and Haldol for aggressive behavior. -Patient is Smith acted and per psychiatrist he does not have the capacity to make any medical decisions. - CT of the brain shows a large stable area of encephalomalacia involving the left middle cerebral artery territory suggesting an old CVA. Patient is on aspirin but will check lipid panel to see these a candidate for any statin therapy. PT recommended for Placement, versus going with relatives up [place] in [place]. Alcohol abuse: -Patient counseled. [facility] protocol. Hypertension: -Patient has been refusing all of his medications. Catapres patch ordered but patient refused Case management is trying to find a safe place for discharge Family does not want him to come back to them DVT prophylaxis: GABRIELA Marcelo Lovenox. Ignacia Hull MD Sep 06, 2017 15:12
[2017-09-06 16:34] VITALS: BP 148/79; PULSE 68; RESP 17; TEMP 97.7; O2SAT 95
[2017-09-06 20:00] VITALS: BP 151/85; PULSE 66; RESP 17; TEMP 97; O2SAT 94
[2017-09-07] MEDS: THIAMINE HCL 100 MG TAB PO SCH (09:00)
[2017-09-07] MEDS: SODIUM CHLORIDE 0.9% FLUSH 10 ML FLUSH IV FLUSH SCH ×2 (09:00→21:00)
[2017-09-07] MEDS: ASPIRIN EC 81 MG TABEC PO SCH (09:00)
[2017-09-07] MEDS: risperiDONE 1 MG TAB PO SCH ×2 (09:00→21:00)
[2017-09-07] MEDS: DOCUSATE SODIUM 50 MG/SENNA 8.6 MG TAB PO SCH ×2 (09:00→21:00)
[2017-09-07 12:00] VITALS: BP 137/79; PULSE 65; RESP 17; TEMP 96.8; O2SAT 94
--- NOTE | 2017-09-07 13:18 | HHI.PR ---
Subjective Remarks Follow-up for dementia with behavioral disturbances and placement Patient more agitated today. He stated he does not know why he has to stay here. Patient is yelling during interview. When I asked if okay by examine him he stated no. Objective Vitals Vital Signs Date Time Temp Pulse Resp B/P (MAP) Pulse Ox O2 Delivery O2 Flow Rate FiO2 09/07/17 12:00 96.8 65 17 137/79 (98) 94 09/06/17 20:00 97.0 66 17 151/85 (107) 94 09/06/17 16:34 97.7 68 17 148/79 (102) 95 I/O 09/06/17 09/06/17 09/06/17 09/07/17 09/07/17 09/07/17 07:00 15:00 23:00 07:00 15:00 23:00 Intake Total 600 ml Output Total 275 ml 200 ml Balance 325 ml -200 ml Intake Oral 600 ml Output Urine Total 275 ml 200 ml Objective Remarks GENERAL: in NAD but agitated. MSK: moving all ext freely unable to exam Procedures None Medications and IVs Current Medications Labetalol HCl (Trandate Inj) 20 mg ONCE ONCE IV PUSH Last administered on 08/15 00:28; Start 08/14/17 at 22:45; Stop 08/14/17 at 22:46; Status DC Lorazepam (Ativan Inj) 1 mg ONCE ONCE IV PUSH Last administered on 08/15/17 00:28; Start 08/14/17 at 23:00; Stop 08/14/17 at 23:01; Status DC Clonidine (Catapres) 0.2 mg ONCE ONCE PO Last administered on 08/15/17 00:59 ; Start 08/15/17 at 00:45; Stop 08/15/17 at 00:46; Status DC Acetaminophen (Tylenol) 500 mg ONCE ONCE PO Last administered on 08/15/17 05: 11; Start 08/15/17 at 04:15; Stop 08/15/17 at 04:16; Status DC Naproxen (Naprosyn) 500 mg ONCE ONCE PO Last administered on 08/15/17 05:43; Start 08/15/17 at 05:30; Stop 08/15/17 at 05:31; Status DC Aspirin (Ecotrin Ec) 81 mg DAILY PO Last administered on 08/20/17 08:57; Start 08/16/17 at 09:00 Aspirin (Ecotrin Ec) 81 mg DAILY PO ; Start 08/16/17 at 09:00; Status Cancel Clonidine (Catapres) 0.1 mg Q12HR PO Last administered on 08/16/17 08:15; Start 08/15/17 at 21:00; Status Future Hold Thiamine HCl (Vitamin B1) 100 mg DAILY PO Last administered on 08/20/17 08:57 ; Start 08/16/17 at 09:00 Sodium Chloride (NS Flush) 2 ml UNSCH PRN IV FLUSH FLUSH AFTER USING IV ACCESS ; Start 08/15/17 at 17:15 Sodium Chloride (NS Flush) 2 ml BID IV FLUSH Last administered on 08/16/17 08: 14; Start 08/15/17 at 21:00 Acetaminophen (Tylenol) 650 mg Q4H PRN PO TEMP > 100.4; Start 08/15/17 at 17:15 Ondansetron HCl (Zofran Inj) 4 mg Q6H PRN IVP NAUSEA OR VOMITING; Start at 17:15 Naloxone HCl (Narcan Inj) 0.4 mg UNSCH PRN IV PUSH SEE LABEL COMMENTS; Start 08/15/17 at 17:15 Senna/Docusate Sodium (Colleen-Colace) 1 tab BID PO Last administered on 08:15; Start 08/15/17 at 21:00 Magnesium Hydroxide (Milk Of Magnesia Liq) 30 ml Q12H PRN PO Mild constipation ; Start 08/15/17 at 17:15 Sennosides (Senokot) 17.2 mg Q12H PRN PO Moderate constipation; Start 08/15/17 at 17:15 Bisacodyl (Dulcolax Supp) 10 mg DAILY PRN RECTAL SEVERE CONSITIPATION; Start 08/15/17 at 17:15 Lactulose (Lactulose Liq) 30 ml DAILY PRN PO SEVERE CONSITIPATION; Start at 17:15 Flumazenil (Romazicon Inj) 0.2 mg Q1M PRN IV PUSH SEE LABEL COMMENTS; Start at 13:15 Lorazepam (Ativan) 1 mg Q4H PRN PO CIWA 8 - 10; Start 08/16/17 at 13:15 Lorazepam (Ativan) 2 mg Q2H PRN PO CIWA 11-14; Start 08/16/17 at 13:15 Lorazepam (Ativan Inj) 2 mg Q1H PRN IV PUSH CIWA 15-20; Start 08/16/17 at 13:15 Lorazepam (Ativan Inj) 2 mg Q15M PRN IV PUSH CIWA > 20; Start 08/16/17 at 13:15 Amlodipine Besylate (Norvasc) 5 mg DAILY PO Last administered on 08/16/17t 14: 00; Start 08/16/17 at 14:00; Status Future Hold Enalaprilat (Vasotec Inj) 2.5 mg Q6H PRN IV PUSH SBP> OR = 180, DBP> OR = 100; Start 08/16/17 at 16:15 Risperidone (risperDAL) 0.5 mg BID PO ; Start 08/20/17 at 21:00; Stop at 13:06; Status DC Haloperidol Lactate (Haldol Inj) 2 mg Q6H PRN IM severe agitation and aggressi ; Start 08/20/17 at 13:15 Risperidone (risperDAL) 1 mg BID PO Last administered on 09/01/17t 20:38; Start 08/26/17 at 21:00 Clonidine (Catapres) 0.1 mg Q4H PRN PO SBP>160, DBP>90; Start 08/26/17 at 16: 15 Clonidine (Catapres-Tts 0.3 Mg Patch.7d) 1 patch Q7D T-DERMAL ; Start 08/29/17 at 12:00 Haloperidol Decanoate (Haldol Decanoate Inj) 50 mg Q28D IM ; Start 08/29/17 at 12:00 A/P Assessment and Plan 61-year-old male who present with dementia and agitation dementia -Psychiatry specialist and psychiatrist recommended Risperdal for mood and Haldol for aggressive behavior. -Patient is Smith acted and per psychiatrist he does not have the capacity to make any medical decisions. - CT of the brain shows a large stable area of encephalomalacia involving the left middle cerebral artery territory suggesting an old CVA. Patient is on aspirin but will check lipid panel to see these a candidate for any statin therapy. PT recommended for Placement, versus going with relatives up [place] in [place]. Alcohol abuse: -Patient counseled. [facility] protocol. Hypertension: -Patient has been refusing all of his medications. Catapres patch ordered but patient refused Case management is trying to find a safe place for discharge Family does not want him to come back to them DVT prophylaxis: Fozia, Aimee Gonzalez. Ignacia Hull MD Sep 07, 2017 13:18
[2017-09-07 16:00] VITALS: BP 150/86; PULSE 65; RESP 18; TEMP 97.9; O2SAT 96
[2017-09-07 20:00] VITALS: BP 151/81; PULSE 74; RESP 18; TEMP 98.9; O2SAT 97
[2017-09-08] VITALS: BP 166/89; PULSE 64; RESP 20; TEMP 97.9; O2SAT 97
--- NOTE | 2017-09-08 08:54 | HHI.PR ---
Subjective Remarks Patient seen and examined today for follow up regaring behavioral disturbances and placement issues. Speaks non sensically and inappropriate. Does not respond appropriately to questions. Objective Vital Signs Date Time Temp Pulse Resp B/P (MAP) Pulse Ox O2 Delivery O2 Flow Rate FiO2 09/08/17 00:00 97.9 64 20 166/89 (114) 97 09/07/17 20:00 98.9 74 18 151/81 (104) 97 09/07/17 16:00 97.9 65 18 150/86 (107) 96 09/07/17 12:00 96.8 65 17 137/79 (98) 94 I/O 09/07/17 09/07/17 09/07/17 09/08/17 09/08/17 09/08/17 07:00 15:00 23:00 07:00 15:00 23:00 Intake Total 1440 ml 1080 ml Output Total 800 ml 600 ml Balance 640 ml 480 ml Intake Oral 1440 ml 1080 ml IV Total 0 ml Output Urine Total 800 ml 600 ml # Bowel Movements 1 0 Imaging Last Impressions Head CT 08/14/17 0000 Signed Impressions: Service Date/Time: August 00:23 - CONCLUSION: 1. Large stable area of encephalomalacia involving the left middle cerebral artery territory consistent with an area of infarction. 2. No acute hemorrhage, mass or acute infarction identified. Gopal Mendez MD Procedures None Objective Remarks GENERAL: sleepy but arousable, extremely slender SKIN: Warm and dry. HEAD: Normocephalic. EYES: No scleral icterus. No injection or drainage. NECK: Supple, trachea midline. CARDIOVASCULAR: Regular rate and rhythm without murmurs, gallops, or rubs. RESPIRATORY: Breath sounds equal bilaterally. No accessory muscle use. GASTROINTESTINAL: Abdomen soft, non-tender, nondistended. MUSCULOSKELETAL: No cyanosis, or edema. A/P Problem List: (1) Unspecified psychosis ICD Code: F29 - Unspecified psychosis not due to a substance or known physiological condition Status: Acute (2) Adjustment disorder with depressed mood ICD Code: F43.21 - Adjustment disorder with depressed mood Assessment and Plan 61-year-old male who present with dementia and agitation Dementia -Psychiatry specialist and psychiatrist recommended Risperdal for mood and Haldol for aggressive behavior. -Patient is Smith acted and per psychiatrist he does not have the capacity to make any medical decisions. He is refusing all medications - CT of the brain shows a large stable area of encephalomalacia involving the left middle cerebral artery territory suggesting an old CVA. PT recommended for Placement, versus going with relatives [place] in [place]. Alcohol abuse: -Patient counseled. [facility] protocol. Hypertension: -Patient has been refusing all of his medications. Catapres patch ordered but patient refused Case management is trying to find a safe place for discharge Family does not want him to come back to them DVT prophylaxis: SCDs, Aimee Gonzalez. Discharge Planning Due to criminal history patient is unable to be accepted at SNF. Discussed case with case fitter, will be a difficult discharge. Monika Lauren MD Sep 08, 2017 08:54
[2017-09-08] MEDS: THIAMINE HCL 100 MG TAB PO SCH (09:00)
[2017-09-08] MEDS: DOCUSATE SODIUM 50 MG/SENNA 8.6 MG TAB PO SCH ×2 (09:00→21:00)
[2017-09-08] MEDS: risperiDONE 1 MG TAB PO SCH ×3 (09:00→21:00)
[2017-09-08] MEDS: ASPIRIN EC 81 MG TABEC PO SCH (09:00)
[2017-09-08] MEDS: SODIUM CHLORIDE 0.9% FLUSH 10 ML FLUSH IV FLUSH SCH ×2 (09:00→21:00)
[2017-09-08 12:00] VITALS: PULSE 66; RESP 17; TEMP 97.4; O2SAT 96
[2017-09-08 16:00] VITALS: BP 165/105; PULSE 70; RESP 18; TEMP 98.2; O2SAT 96
[2017-09-08 20:32] VITALS: BP 126/75; PULSE 80; RESP 18; TEMP 98.5; O2SAT 98
[2017-09-09 00:13] VITALS: BP 136/85; PULSE 79; RESP 18; TEMP 97.8; O2SAT 96
[2017-09-09 08:00] VITALS: BP 150/78; PULSE 62; RESP 20; TEMP 96.9; O2SAT 95
[2017-09-09] MEDS: DOCUSATE SODIUM 50 MG/SENNA 8.6 MG TAB PO SCH ×2 (08:37→21:00)
[2017-09-09] MEDS: ASPIRIN EC 81 MG TABEC PO SCH (08:37)
[2017-09-09] MEDS: risperiDONE 1 MG TAB PO SCH ×2 (08:37→21:00)
[2017-09-09] MEDS: THIAMINE HCL 100 MG TAB PO SCH (08:37)
[2017-09-09] MEDS: SODIUM CHLORIDE 0.9% FLUSH 10 ML FLUSH IV FLUSH SCH ×2 (08:37→21:00)
--- NOTE | 2017-09-09 09:31 | HHI.PR ---
Subjective Remarks Patient seen and examined today for follow up regarding behavioral disturbances and placement issues. No overnight issues. Sleeps but then awakens easily. Did not participate in interview. Objective Vital Signs Date Time Temp Pulse Resp B/P (MAP) Pulse Ox O2 Delivery O2 Flow Rate FiO2 09/09/17 08:00 96.9 62 20 150/78 (102) 95 09/09/17 00:13 97.8 79 18 136/85 (102) 96 09/08/17 20:32 98.5 80 18 126/75 (92) 98 09/08/17 16:00 98.2 70 18 165/105 (125) 96 09/08/17 12:00 97.4 66 17 96 I/O 09/08/17 09/08/17 09/08/17 09/09/17 09/09/17 09/09/17 07:00 15:00 23:00 07:00 15:00 23:00 Intake Total 1080 ml 2020 ml 360 ml 120 ml Output Total 600 ml 1150 ml 700 ml Balance 480 ml 870 ml -340 ml 120 ml Intake Oral 1080 ml 2020 ml 360 ml 120 ml IV Total 0 ml Output Urine Total 600 ml 1150 ml 700 ml # Bowel Movements 0 0 0 Imaging Last Impressions Head CT 08/14/17 0000 Signed Impressions: Service Date/Time: August 00:23 - CONCLUSION: 1. Large stable area of encephalomalacia involving the left middle cerebral artery territory consistent with an area of infarction. 2. No acute hemorrhage, mass or acute infarction identified. Gopal Mendez MD Procedures None Objective Remarks GENERAL: sleepy but arousable, extremely slender SKIN: Warm and dry. HEAD: Normocephalic. EYES: No scleral icterus. No injection or drainage. NECK: Supple, trachea midline. CARDIOVASCULAR: Regular rate and rhythm without murmurs, gallops, or rubs. RESPIRATORY: Breath sounds equal bilaterally. No accessory muscle use. GASTROINTESTINAL: Abdomen soft, non-tender, nondistended. MUSCULOSKELETAL: No cyanosis, or edema. A/P Problem List: (1) Unspecified psychosis ICD Code: F29 - Unspecified psychosis not due to a substance or known physiological condition Status: Acute (2) Adjustment disorder with depressed mood ICD Code: F43.21 - Adjustment disorder with depressed mood Assessment and Plan 61-year-old male who present with dementia and agitation Dementia -Psychiatry specialist and psychiatrist recommended Risperdal for mood and Haldol for aggressive behavior. -Patient is Smith acted and per psychiatrist he does not have the capacity to make any medical decisions. He is refusing all medications - CT of the brain shows a large stable area of encephalomalacia involving the left middle cerebral artery territory suggesting an old CVA. PT recommended for Placement, versus going with relatives up north in [place]. Alcohol abuse: -Patient counseled. [facility] protocol. Hypertension: -Patient has been refusing all of his medications. Catapres patch ordered but patient refused Case management is trying to find a safe place for discharge Family does not want him to come back to them DVT prophylaxis: SCDs, GABRIELA garay, Lovenox. Discharge Planning Due to criminal history patient is unable to be accepted at SNF. Discussed case with case monitor, will be a difficult discharge. Monika Lauren MD Sep 09, 2017 09:31
[2017-09-09 12:00] VITALS: BP 125/72; PULSE 82; RESP 20; TEMP 97.9; O2SAT 95
[2017-09-09 16:00] VITALS: BP 139/77; PULSE 83; RESP 20; TEMP 97.4; O2SAT 97
[2017-09-09 20:00] VITALS: BP_SYST 161; BP_SYST 186; BP_DIAS 88; BP_DIAS 93; PULSE 73; PULSE 84; RESP 20; TEMP 98.5; TEMP 98.7; O2SAT 96; O2SAT 97
[2017-09-09] MEDS: cloNIDine HCL 0.1 MG TAB PO PRN (22:12)
[2017-09-10] MEDS: SODIUM CHLORIDE 0.9% FLUSH 10 ML FLUSH IV FLUSH SCH ×2 (07:53→21:00)
[2017-09-10] MEDS: THIAMINE HCL 100 MG TAB PO SCH (07:54)
[2017-09-10] MEDS: DOCUSATE SODIUM 50 MG/SENNA 8.6 MG TAB PO SCH ×2 (07:54→21:00)
[2017-09-10] MEDS: ASPIRIN EC 81 MG TABEC PO SCH (07:54)
[2017-09-10] MEDS: risperiDONE 1 MG TAB PO SCH ×2 (07:54→21:00)
[2017-09-10 08:00] VITALS: BP 139/72; PULSE 57; RESP 17; TEMP 96; O2SAT 97
[2017-09-10 12:00] VITALS: BP 171/90; PULSE 80; RESP 20; TEMP 97.1; O2SAT 97
[2017-09-10 16:00] VITALS: BP 131/81; PULSE 77; RESP 17; TEMP 97.4; O2SAT 92
--- NOTE | 2017-09-10 17:02 | HHI.PR ---
Subjective Remarks patient sitting on the chair his back facing the door of the room, he did not want to talk or answer question Objective Vitals Vital Signs Date Time Temp Pulse Resp B/P (MAP) Pulse Ox O2 Delivery O2 Flow Rate FiO2 09/10/17 12:00 97.1 80 20 171/90 (117) 97 09/10/17 08:00 96.0 57 17 139/72 (94) 97 09/09/17 20:00 98.7 73 20 186/93 (124) 96 I/O 09/09/17 09/09/17 09/09/17 09/10/17 09/10/17 09/10/17 07:00 15:00 23:00 07:00 15:00 23:00 Intake Total 360 ml 120 ml 1200 ml 720 ml Output Total 700 ml 2000 ml 1375 ml Balance -340 ml 120 ml -800 ml -655 ml Intake Oral 360 ml 120 ml 1200 ml 720 ml Output Urine Total 700 ml 2000 ml 1375 ml # Bowel Movements 0 0 0 Objective Remarks Awake alert no acute distress Procedures None A/P Assessment and Plan 09/10/17: No change in his behavioral pattern, placement become an issue 61-year-old male who present with dementia and agitation Dementia -Psychiatry specialist and psychiatrist recommended Risperdal for mood and Haldol for aggressive behavior. -Patient is Smith acted and per psychiatrist he does not have the capacity to make any medical decisions. He is refusing all medications - CT of the brain shows a large stable area of encephalomalacia involving the left middle cerebral artery territory suggesting an old CVA. PT recommended for Placement, versus going with relatives up [place] in [place]. Alcohol abuse: -Patient counseled. [facility] protocol. Hypertension: -Patient has been refusing all of his medications. Catapres patch ordered but patient refused Case management is trying to find a safe place for discharge Family does not want him to come back to them DVT prophylaxis: SCDs, GABRIELA hose, Lovenox. Discharge Planning Due to criminal history patient is unable to be accepted at SNF. Discharge Planning Patient does not have capacity per psychiatry to make decisions. Hopefully family will help with decision-making Brittany Black MD Sep 10, 2017 17:02
[2017-09-10 20:00] VITALS: BP 176/88; PULSE 81; RESP 18; TEMP 98.2; O2SAT 97
[2017-09-11] VITALS: BP 159/70; PULSE 66; RESP 18; TEMP 97.6; O2SAT 95
[2017-09-11 08:00] VITALS: BP 135/81; PULSE 55; RESP 16; TEMP 96.7; O2SAT 95
[2017-09-11] MEDS: risperiDONE 1 MG TAB PO SCH ×2 (09:00→20:01)
[2017-09-11] MEDS: THIAMINE HCL 100 MG TAB PO SCH (09:00)
[2017-09-11] MEDS: ASPIRIN EC 81 MG TABEC PO SCH (09:00)
[2017-09-11] MEDS: DOCUSATE SODIUM 50 MG/SENNA 8.6 MG TAB PO SCH ×2 (09:00→20:01)
[2017-09-11] MEDS: SODIUM CHLORIDE 0.9% FLUSH 10 ML FLUSH IV FLUSH SCH ×2 (09:00→20:01)
[2017-09-11 12:00] VITALS: BP 139/75; PULSE 65; RESP 16; TEMP 97.3; O2SAT 97
--- NOTE | 2017-09-11 15:01 | HHI.PR ---
Subjective Remarks Patient sitting on the edge of the bed He is ignoring me totally not answering question Objective Vitals Vital Signs Date Time Temp Pulse Resp B/P (MAP) Pulse Ox O2 Delivery O2 Flow Rate FiO2 09/11/17 12:00 97.3 65 16 139/75 (96) 97 09/11/17 08:00 96.7 55 16 135/81 (99) 95 09/11/17 00:00 97.6 66 18 159/70 (99) 95 09/10/17 20:00 98.2 81 18 176/88 (117) 97 09/10/17 16:00 97.4 77 17 131/81 (98) 92 I/O 09/10/17 09/10/17 09/10/17 09/11/17 09/11/17 09/11/17 07:00 15:00 23:00 07:00 15:00 23:00 Intake Total 720 ml 1200 ml 360 ml Output Total 1375 ml 525 ml 925 ml Balance -655 ml 675 ml -565 ml Intake Oral 720 ml 1200 ml 360 ml Output Urine Total 1375 ml 525 ml 925 ml # Bowel Movements 0 2 0 Objective Remarks Awake alert no acute distress Procedures None A/P Assessment and Plan 09/11/17: No change in his behavioral pattern, placement become an issue 61-year-old male who present with dementia and agitation Dementia -Psychiatry specialist and psychiatrist recommended Risperdal for mood and Haldol for aggressive behavior. -Patient is Smith acted and per psychiatrist he does not have the capacity to make any medical decisions. He is refusing all medications - CT of the brain shows a large stable area of encephalomalacia involving the left middle cerebral artery territory suggesting an old CVA. PT recommended for Placement, versus going with relatives up [place] in [place]. Alcohol abuse: -Patient counseled. [facility] protocol. Hypertension: -Patient has been refusing all of his medications. Catapres patch ordered but patient refused Case management is trying to find a safe place for discharge Family does not want him to come back to them DVT prophylaxis: SCDs, GABRIELA hose, Lovenox. Discharge Planning Due to criminal history patient is unable to be accepted at SNF. Discharge Planning Patient does not have capacity per psychiatry to make decisions. Hopefully family will help with decision-making Brittany Black MD Sep 11, 2017 15:01
[2017-09-11 16:00] VITALS: BP 162/90; PULSE 72; RESP 18; TEMP 96.5; O2SAT 96
[2017-09-11 20:00] VITALS: BP 149/82; PULSE 68; RESP 16; TEMP 98.2; O2SAT 97
[2017-09-12 00:30] VITALS: BP 176/91; PULSE 62; RESP 16; TEMP 97.8; O2SAT 93
[2017-09-12] MEDS: cloNIDine HCL 0.1 MG TAB PO PRN (00:35)
[2017-09-12] MEDS: risperiDONE 1 MG TAB PO SCH ×2 (07:58→21:00)
[2017-09-12] MEDS: SODIUM CHLORIDE 0.9% FLUSH 10 ML FLUSH IV FLUSH SCH ×2 (07:58→21:00)
[2017-09-12] MEDS: ASPIRIN EC 81 MG TABEC PO SCH (07:58)
[2017-09-12] MEDS: DOCUSATE SODIUM 50 MG/SENNA 8.6 MG TAB PO SCH ×2 (07:58→21:00)
[2017-09-12] MEDS: THIAMINE HCL 100 MG TAB PO SCH (07:59)
[2017-09-12 08:00] VITALS: BP 126/85; PULSE 59; RESP 20; TEMP 97.5; O2SAT 96
[2017-09-12 11:31] VITALS: BP 142/71; PULSE 66; RESP 19; TEMP 98.2; O2SAT 96
[2017-09-12] MEDS: cloNIDine HCL 0.3 MG/24 HR PATCH T-DERMAL SCH (12:00)
--- NOTE | 2017-09-12 13:47 | HHI.PR ---
Subjective Remarks No change in his behavior is still ignoring nurses and doctors Objective Vitals Vital Signs Date Time Temp Pulse Resp B/P (MAP) Pulse Ox O2 Delivery O2 Flow Rate FiO2 09/12/17 11:31 98.2 66 19 142/71 (94) 96 09/12/17 08:00 97.5 59 20 126/85 (99) 96 09/12/17 00:30 97.8 62 16 176/91 (119) 93 09/11/17 20:00 98.2 68 16 149/82 (104) 97 09/11/17 16:00 96.5 72 18 162/90 (114) 96 I/O 09/11/17 09/11/17 09/11/17 09/12/17 09/12/17 09/12/17 07:00 15:00 23:00 07:00 15:00 23:00 Intake Total 360 ml 1680 ml 240 ml Output Total 925 ml 775 ml 1075 ml Balance -565 ml 905 ml -1075 ml 240 ml Intake Oral 360 ml 1680 ml 240 ml Output Urine Total 925 ml 775 ml 1075 ml # Bowel Movements 0 2 Objective Remarks Awake alert no acute distress Procedures None A/P Assessment and Plan 09/12/17: Placement issue, no acute event overnight 61-year-old male who present with dementia and agitation Dementia -Psychiatry specialist and psychiatrist recommended Risperdal for mood and Haldol for aggressive behavior. -Patient is Smith acted and per psychiatrist he does not have the capacity to make any medical decisions. He is refusing all medications - CT of the brain shows a large stable area of encephalomalacia involving the left middle cerebral artery territory suggesting an old CVA. PT recommended for Placement, versus going with relatives up [place] in [place]. Alcohol abuse: -Patient counseled. [facility] protocol. Hypertension: -Patient has been refusing all of his medications. Catapres patch ordered but patient refused Case management is trying to find a safe place for discharge Family does not want him to come back to them DVT prophylaxis: SCDs, GABRIELA hose, Lovenox. Discharge Planning Due to criminal history patient is unable to be accepted at SNF. Discharge Planning Patient does not have capacity per psychiatry to make decisions. Hopefully family will help with decision-making Brittany Black MD Sep 12, 2017 13:47
[2017-09-12 20:00] VITALS: BP 156/72; PULSE 70; RESP 20; TEMP 98.1; O2SAT 94
[2017-09-13 08:00] VITALS: BP 160/70; PULSE 60; RESP 19; TEMP 96.9; O2SAT 96
[2017-09-13] MEDS: ASPIRIN EC 81 MG TABEC PO SCH (09:00)
[2017-09-13] MEDS: DOCUSATE SODIUM 50 MG/SENNA 8.6 MG TAB PO SCH ×2 (09:00→20:53)
[2017-09-13] MEDS: risperiDONE 1 MG TAB PO SCH ×2 (09:00→20:53)
[2017-09-13] MEDS: THIAMINE HCL 100 MG TAB PO SCH (09:00)
[2017-09-13] MEDS: SODIUM CHLORIDE 0.9% FLUSH 10 ML FLUSH IV FLUSH SCH ×2 (09:00→20:52)
[2017-09-13 12:00] VITALS: BP 181/86; PULSE 80; RESP 20; TEMP 98.2; O2SAT 96
[2017-09-13 16:00] VITALS: BP 152/86; PULSE 80; RESP 20; TEMP 97.8; O2SAT 96
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
[2017-09-13 20:00] VITALS: BP 162/80; PULSE 68; RESP 18; TEMP 98.3; O2SAT 100
[2017-09-14 08:00] VITALS: BP 172/79; PULSE 67; RESP 17; TEMP 97; O2SAT 99
[2017-09-14] MEDS: DOCUSATE SODIUM 50 MG/SENNA 8.6 MG TAB PO SCH ×2 (09:00→20:05)
[2017-09-14] MEDS: SODIUM CHLORIDE 0.9% FLUSH 10 ML FLUSH IV FLUSH SCH ×2 (09:00→20:05)
[2017-09-14] MEDS: risperiDONE 1 MG TAB PO SCH ×2 (09:00→20:05)
[2017-09-14] MEDS: ASPIRIN EC 81 MG TABEC PO SCH (09:00)
[2017-09-14] MEDS: THIAMINE HCL 100 MG TAB PO SCH (09:00)
[2017-09-14 12:00] VITALS: BP 156/77; PULSE 69; RESP 16; TEMP 97; O2SAT 96
[2017-09-14 16:00] VITALS: BP 110/59; PULSE 64; RESP 16; TEMP 98.2; O2SAT 97
[2017-09-14 20:00] VITALS: BP 166/81; PULSE 64; RESP 18; TEMP 98.8; O2SAT 97
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
[2017-09-15] MEDS: DOCUSATE SODIUM 50 MG/SENNA 8.6 MG TAB PO SCH ×2 (08:25→20:27)
[2017-09-15] MEDS: ASPIRIN EC 81 MG TABEC PO SCH (08:25)
[2017-09-15] MEDS: SODIUM CHLORIDE 0.9% FLUSH 10 ML FLUSH IV FLUSH SCH ×2 (08:25→20:27)
[2017-09-15] MEDS: risperiDONE 1 MG TAB PO SCH ×2 (08:25→20:27)
[2017-09-15] MEDS: THIAMINE HCL 100 MG TAB PO SCH (08:26)
[2017-09-15 12:00] VITALS: BP 171/82; PULSE 67; RESP 16; TEMP 97.7; O2SAT 97
[2017-09-15 16:00] VITALS: BP 150/82; PULSE 63; RESP 17; TEMP 97.5; O2SAT 96
[2017-09-15 20:00] VITALS: BP 187/94; PULSE 72; RESP 17; TEMP 98.9; O2SAT 97
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
[2017-09-16] MEDS: SODIUM CHLORIDE 0.9% FLUSH 10 ML FLUSH IV FLUSH SCH ×2 (09:00→21:00)
[2017-09-16] MEDS: ASPIRIN EC 81 MG TABEC PO SCH (09:00)
[2017-09-16] MEDS: risperiDONE 1 MG TAB PO SCH ×2 (09:00→21:00)
[2017-09-16] MEDS: DOCUSATE SODIUM 50 MG/SENNA 8.6 MG TAB PO SCH ×2 (09:00→21:00)
[2017-09-16] MEDS: THIAMINE HCL 100 MG TAB PO SCH (09:00)
[2017-09-16 12:00] VITALS: BP 144/86; PULSE 67; RESP 18; TEMP 96.1; O2SAT 97
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
[2017-09-16 20:00] VITALS: BP 144/85; PULSE 68; RESP 20; TEMP 98; O2SAT 95
[2017-09-17] VITALS: BP 146/84; PULSE 65; RESP 20; TEMP 97.5; O2SAT 94
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
[2017-09-17] MEDS: SODIUM CHLORIDE 0.9% FLUSH 10 ML FLUSH IV FLUSH SCH ×2 (09:00→21:00)
[2017-09-17] MEDS: ASPIRIN EC 81 MG TABEC PO SCH (09:00)
[2017-09-17] MEDS: DOCUSATE SODIUM 50 MG/SENNA 8.6 MG TAB PO SCH ×2 (09:00→21:00)
[2017-09-17] MEDS: THIAMINE HCL 100 MG TAB PO SCH (09:00)
[2017-09-17] MEDS: risperiDONE 1 MG TAB PO SCH ×2 (09:00→21:00)
[2017-09-17 12:00] VITALS: BP 132/80; PULSE 87; RESP 16; TEMP 97.1; O2SAT 95
[2017-09-17 16:00] VITALS: BP 168/88; PULSE 70; RESP 16; TEMP 97.6; O2SAT 96
[2017-09-17 20:40] VITALS: BP 159/88; PULSE 74; RESP 18; TEMP 97.4; O2SAT 93
[2017-09-18 08:00] VITALS: BP 150/75; PULSE 60; RESP 18; TEMP 96.7; O2SAT 96
[2017-09-18] MEDS: risperiDONE 1 MG TAB PO SCH ×2 (08:01→21:00)
[2017-09-18] MEDS: DOCUSATE SODIUM 50 MG/SENNA 8.6 MG TAB PO SCH ×2 (08:01→21:00)
[2017-09-18] MEDS: THIAMINE HCL 100 MG TAB PO SCH (08:01)
[2017-09-18] MEDS: ASPIRIN EC 81 MG TABEC PO SCH (08:01)
[2017-09-18] MEDS: SODIUM CHLORIDE 0.9% FLUSH 10 ML FLUSH IV FLUSH SCH ×2 (08:03→21:00)
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
[2017-09-18 16:00] VITALS: BP 152/83; PULSE 75; RESP 16; TEMP 97.6; O2SAT 95
[2017-09-18 20:00] VITALS: BP 137/79; PULSE 80; RESP 18; TEMP 97.9; O2SAT 96
[2017-09-19] VITALS: BP 170/90; PULSE 66; RESP 18; TEMP 97.7; O2SAT 95
[2017-09-19 08:00] VITALS: BP 152/79; PULSE 58; RESP 17; TEMP 96.3; O2SAT 94
[2017-09-19] MEDS: ASPIRIN EC 81 MG TABEC PO SCH (09:00)
[2017-09-19] MEDS: SODIUM CHLORIDE 0.9% FLUSH 10 ML FLUSH IV FLUSH SCH ×2 (09:00→21:00)
[2017-09-19] MEDS: risperiDONE 1 MG TAB PO SCH ×2 (09:00→21:00)
[2017-09-19] MEDS: THIAMINE HCL 100 MG TAB PO SCH (09:00)
[2017-09-19] MEDS: DOCUSATE SODIUM 50 MG/SENNA 8.6 MG TAB PO SCH ×2 (09:00→21:00)
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
[2017-09-19 12:00] VITALS: BP 135/82; PULSE 66; RESP 17; TEMP 97.4; O2SAT 96
[2017-09-19] MEDS: cloNIDine HCL 0.3 MG/24 HR PATCH T-DERMAL SCH (12:00)
[2017-09-19 16:00] VITALS: BP 145/102; PULSE 97; RESP 17; TEMP 97.1; O2SAT 98
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
[2017-09-19 20:00] VITALS: BP 177/93; PULSE 72; RESP 22; TEMP 98.1; O2SAT 95
[2017-09-20 04:00] VITALS: BP 133/80; PULSE 73; RESP 20; O2SAT 96
[2017-09-20] MEDS: SODIUM CHLORIDE 0.9% FLUSH 10 ML FLUSH IV FLUSH SCH ×2 (07:02→20:40)
[2017-09-20 08:00] VITALS: BP 134/79; PULSE 61; RESP 18; TEMP 97.7; O2SAT 95
[2017-09-20] MEDS: DOCUSATE SODIUM 50 MG/SENNA 8.6 MG TAB PO SCH ×2 (09:00→20:40)
[2017-09-20] MEDS: THIAMINE HCL 100 MG TAB PO SCH (09:00)
[2017-09-20] MEDS: ASPIRIN EC 81 MG TABEC PO SCH (09:00)
[2017-09-20] MEDS: risperiDONE 1 MG TAB PO SCH ×2 (09:00→20:41)
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
[2017-09-20 12:00] VITALS: BP 164/85; PULSE 79; RESP 17; TEMP 97.6; O2SAT 97
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
[2017-09-20 16:00] VITALS: BP 163/93; PULSE 17; RESP 17; TEMP 97.9; O2SAT 97
[2017-09-20 20:00] VITALS: BP 150/84; PULSE 72; RESP 22; TEMP 97.8; O2SAT 97
[2017-09-21] VITALS: BP 167/85; PULSE 65; RESP 20; TEMP 97.8; O2SAT 95
[2017-09-21 08:00] VITALS: BP 192/77; PULSE 79; RESP 18; TEMP 98.1; O2SAT 96
[2017-09-21] MEDS: THIAMINE HCL 100 MG TAB PO SCH (09:00)
[2017-09-21] MEDS: SODIUM CHLORIDE 0.9% FLUSH 10 ML FLUSH IV FLUSH SCH ×2 (09:00→21:00)
[2017-09-21] MEDS: DOCUSATE SODIUM 50 MG/SENNA 8.6 MG TAB PO SCH ×2 (09:00→21:00)
[2017-09-21] MEDS: risperiDONE 1 MG TAB PO SCH ×2 (09:00→21:00)
[2017-09-21] MEDS: ASPIRIN EC 81 MG TABEC PO SCH (09:00)
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
[2017-09-21 12:00] VITALS: BP 145/80; PULSE 68; RESP 16; TEMP 97.3; O2SAT 97
[2017-09-21 16:00] VITALS: BP 218/102; PULSE 87; RESP 17; TEMP 97.8; O2SAT 95
[2017-09-21 20:00] VITALS: BP 178/85; PULSE 74; RESP 20; TEMP 97.7; O2SAT 96
[2017-09-22] VITALS: BP 140/75; PULSE 70; RESP 18; TEMP 97; O2SAT 96
[2017-09-22 08:00] VITALS: BP 142/84; PULSE 60; RESP 14; TEMP 97.3; O2SAT 95
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
[2017-09-22] MEDS: risperiDONE 1 MG TAB PO SCH ×2 (09:00→21:00)
[2017-09-22] MEDS: THIAMINE HCL 100 MG TAB PO SCH (09:00)
[2017-09-22] MEDS: SODIUM CHLORIDE 0.9% FLUSH 10 ML FLUSH IV FLUSH SCH ×2 (09:00→21:00)
[2017-09-22] MEDS: DOCUSATE SODIUM 50 MG/SENNA 8.6 MG TAB PO SCH ×2 (09:00→21:00)
[2017-09-22] MEDS: ASPIRIN EC 81 MG TABEC PO SCH (09:00)
[2017-09-22 16:00] VITALS: BP 181/89; PULSE 86; RESP 20; TEMP 98.1; O2SAT 97
[2017-09-22 20:00] VITALS: BP 172/90; PULSE 84; RESP 20; TEMP 98.6; O2SAT 97
[2017-09-23] VITALS: BP 175/93; PULSE 69; RESP 18; TEMP 96.6; O2SAT 94
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
[2017-09-23] MEDS: THIAMINE HCL 100 MG TAB PO SCH (09:00)
[2017-09-23] MEDS: SODIUM CHLORIDE 0.9% FLUSH 10 ML FLUSH IV FLUSH SCH ×2 (09:00→21:55)
[2017-09-23] MEDS: risperiDONE 1 MG TAB PO SCH ×2 (09:00→21:59)
[2017-09-23] MEDS: DOCUSATE SODIUM 50 MG/SENNA 8.6 MG TAB PO SCH ×2 (09:00→21:59)
[2017-09-23] MEDS: ASPIRIN EC 81 MG TABEC PO SCH (09:00)
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
[2017-09-23 20:00] VITALS: BP 204/99; PULSE 63; RESP 20; TEMP 97.2; O2SAT 100
[2017-09-23] MEDS: cloNIDine HCL 0.3 MG/24 HR PATCH T-DERMAL SCH (22:38)
[2017-09-24] VITALS: BP 154/81; PULSE 67; RESP 18; TEMP 98.3; O2SAT 96
[2017-09-24] MEDS: THIAMINE HCL 100 MG TAB PO SCH (07:34)
[2017-09-24] MEDS: SODIUM CHLORIDE 0.9% FLUSH 10 ML FLUSH IV FLUSH SCH ×2 (07:35→21:00)
[2017-09-24] MEDS: risperiDONE 1 MG TAB PO SCH ×2 (07:35→21:39)
[2017-09-24] MEDS: DOCUSATE SODIUM 50 MG/SENNA 8.6 MG TAB PO SCH ×2 (07:35→21:39)
[2017-09-24] MEDS: ASPIRIN EC 81 MG TABEC PO SCH (07:35)
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
[2017-09-24 12:00] VITALS: BP 143/74; PULSE 63; RESP 18; TEMP 96.8; O2SAT 95
--- NOTE | 2017-09-24 17:34 | HHI.PR ---
Subjective Remarks f/u for agitation and dementia Patient upset today. He stated he wants to go home. No other complaint. He refused examination today. Objective Vitals Vital Signs Date Time Temp Pulse Resp B/P (MAP) Pulse Ox O2 Delivery O2 Flow Rate FiO2 09/24/17 12:00 96.8 63 18 143/74 (97) 95 09/24/17 00:00 98.3 67 18 154/81 (105) 96 09/23/17 20:00 97.2 63 20 204/99 (134) 100 I/O 09/23/17 09/23/17 09/23/17 09/24/17 09/24/17 09/24/17 07:00 15:00 23:00 07:00 15:00 23:00 Intake Total 360 ml 840 ml Output Total 700 ml 700 ml Balance -340 ml 140 ml Intake Oral 360 ml 840 ml Output Urine Total 700 ml 700 ml # Bowel Movements 0 0 Objective Remarks GENERAL: in NAD but agitated. MSK: moving all ext freely unable to exam Procedures None Medications and IVs Current Medications Labetalol HCl (Trandate Inj) 20 mg ONCE ONCE IV PUSH Last administered on 08/15 00:28; Start 08/14/17 at 22:45; Stop 08/14/17 at 22:46; Status DC Lorazepam (Ativan Inj) 1 mg ONCE ONCE IV PUSH Last administered on 08/15/17 00:28; Start 08/14/17 at 23:00; Stop 08/14/17 at 23:01; Status DC Clonidine (Catapres) 0.2 mg ONCE ONCE PO Last administered on 08/15/17 00:59 ; Start 08/15/17 at 00:45; Stop 08/15/17 at 00:46; Status DC Acetaminophen (Tylenol) 500 mg ONCE ONCE PO Last administered on 08/15/17 05: 11; Start 08/15/17 at 04:15; Stop 08/15/17 at 04:16; Status DC Naproxen (Naprosyn) 500 mg ONCE ONCE PO Last administered on 08/15/17 05:43; Start 08/15/17 at 05:30; Stop 08/15/17 at 05:31; Status DC Aspirin (Ecotrin Ec) 81 mg DAILY PO Last administered on 1/16/18at 07:35; Start 08/16/17 at 09:00 Aspirin (Ecotrin Ec) 81 mg DAILY PO ; Start 08/16/17 at 09:00; Status Cancel Clonidine (Catapres) 0.1 mg Q12HR PO Last administered on 08/16/17t 08:15; Start 08/15/17 at 21:00; Status Future Hold Thiamine HCl (Vitamin B1) 100 mg DAILY PO Last administered on 09/24/17 07:34 ; Start 08/16/17 at 09:00 Sodium Chloride (NS Flush) 2 ml UNSCH PRN IV FLUSH FLUSH AFTER USING IV ACCESS ; Start 08/15/17 at 17:15 Sodium Chloride (NS Flush) 2 ml BID IV FLUSH Last administered on 09/09/17 08: 37; Start 08/15/17 at 21:00 Acetaminophen (Tylenol) 650 mg Q4H PRN PO TEMP > 100.4; Start 08/15/17 at 17:15 Ondansetron HCl (Zofran Inj) 4 mg Q6H PRN IVP NAUSEA OR VOMITING; Start at 17:15 Naloxone HCl (Narcan Inj) 0.4 mg UNSCH PRN IV PUSH SEE LABEL COMMENTS; Start 08/15/17 at 17:15 Senna/Docusate Sodium (Colleen-Colace) 1 tab BID PO Last administered on 08:01; Start 08/15/17 at 21:00 Magnesium Hydroxide (Milk Of Magnesia Liq) 30 ml Q12H PRN PO Mild constipation ; Start 08/15/17 at 17:15 Sennosides (Senokot) 17.2 mg Q12H PRN PO Moderate constipation; Start 08/15/17 at 17:15 Bisacodyl (Dulcolax Supp) 10 mg DAILY PRN RECTAL SEVERE CONSITIPATION; Start 08/15/17 at 17:15 Lactulose (Lactulose Liq) 30 ml DAILY PRN PO SEVERE CONSITIPATION; Start at 17:15 Flumazenil (Romazicon Inj) 0.2 mg Q1M PRN IV PUSH SEE LABEL COMMENTS; Start at 13:15 Lorazepam (Ativan) 1 mg Q4H PRN PO CIWA 8 - 10; Start 08/16/17 at 13:15 Lorazepam (Ativan) 2 mg Q2H PRN PO CIWA 11-14; Start 08/16/17 at 13:15 Lorazepam (Ativan Inj) 2 mg Q1H PRN IV PUSH CIWA 15-20; Start 08/16/17 at 13:15 Lorazepam (Ativan Inj) 2 mg Q15M PRN IV PUSH CIWA > 20; Start 08/16/17 at 13:15 Amlodipine Besylate (Norvasc) 5 mg DAILY PO Last administered on 08/16/17t 14: 00; Start 08/16/17 at 14:00; Status Future Hold Enalaprilat (Vasotec Inj) 2.5 mg Q6H PRN IV PUSH SBP> OR = 180, DBP> OR = 100; Start 08/16/17 at 16:15 Risperidone (risperDAL) 0.5 mg BID PO ; Start 08/20/17 at 21:00; Stop at 13:06; Status DC Haloperidol Lactate (Haldol Inj) 2 mg Q6H PRN IM severe agitation and aggressi ; Start 08/20/17 at 13:15 Risperidone (risperDAL) 1 mg BID PO Last administered on 09/24/17at 07:35; Start 08/26/17 at 21:00 Clonidine (Catapres) 0.1 mg Q4H PRN PO SBP>160, DBP>90; Start 08/26/17 at 16: 15 Clonidine (Catapres-Tts 0.3 Mg Patch.7d) 1 patch Q7D T-DERMAL Last administered on 09/23/17at 22:38; Start 08/29/17 at 12:00 Haloperidol Decanoate (Haldol Decanoate Inj) 50 mg Q28D IM ; Start 08/29/17 at 12:00 A/P Assessment and Plan 61-year-old male who present with dementia and agitation dementia -Psychiatry specialist and psychiatrist recommended Risperdal for mood and Haldol for aggressive behavior. -Patient is Smith acted and per psychiatrist he does not have the capacity to make any medical decisions. - CT of the brain shows a large stable area of encephalomalacia involving the left middle cerebral artery territory suggesting an old CVA. Patient is on aspirin but will check lipid panel to see these a candidate for any statin therapy. PT recommended for Placement, versus going with relatives up north in [place]. -Neuropsych is following. Alcohol abuse: -Patient counseled. [facility] protocol. Hypertension: -Patient has been refusing all of his medications. Catapres patch ordered but patient refused Case management is trying to find a safe place for discharge Family does not want him to come back to them DVT prophylaxis: SCDs, Aimee Gonzalez. Ignacia Hull MD Sep 24, 2017 17:34
[2017-09-24 20:00] VITALS: BP 161/73; PULSE 79; RESP 18; TEMP 97.9; O2SAT 97
[2017-09-25 08:00] VITALS: BP 139/77; PULSE 67; RESP 17; TEMP 98; O2SAT 95
[2017-09-25] MEDS: ASPIRIN EC 81 MG TABEC PO SCH (09:00)
[2017-09-25] MEDS: SODIUM CHLORIDE 0.9% FLUSH 10 ML FLUSH IV FLUSH SCH ×2 (09:00→20:27)
[2017-09-25] MEDS: risperiDONE 1 MG TAB PO SCH ×2 (09:00→20:27)
[2017-09-25] MEDS: THIAMINE HCL 100 MG TAB PO SCH (09:00)
[2017-09-25] MEDS: DOCUSATE SODIUM 50 MG/SENNA 8.6 MG TAB PO SCH ×2 (09:00→20:27)
--- NOTE | 2017-09-25 11:24 | HHI.PR ---
Subjective Remarks Follow-up for dementia with behavioral disturbances Patient was angry about it was speaking to him. He would not answer anymore questions. He also stated I could not examine him. Objective Vitals Vital Signs Date Time Temp Pulse Resp B/P (MAP) Pulse Ox O2 Delivery O2 Flow Rate FiO2 09/25/17 08:00 98.0 67 17 139/77 (97) 95 09/24/17 20:00 97.9 79 18 161/73 (102) 97 09/24/17 12:00 96.8 63 18 143/74 (97) 95 I/O 09/24/17 09/24/17 09/24/17 09/25/17 09/25/17 09/25/17 07:00 15:00 23:00 07:00 15:00 23:00 Intake Total 780 ml Output Total 1000 ml Balance -220 ml Intake Oral 780 ml Output Urine Total 1000 ml Objective Remarks GENERAL: in NAD but agitated. MSK: moving all ext freely Able to speak. unable to exam Procedures None Medications and IVs Current Medications Labetalol HCl (Trandate Inj) 20 mg ONCE ONCE IV PUSH Last administered on 08/15 00:28; Start 08/14/17 at 22:45; Stop 08/14/17 at 22:46; Status DC Lorazepam (Ativan Inj) 1 mg ONCE ONCE IV PUSH Last administered on 08/15/17 00:28; Start 08/14/17 at 23:00; Stop 08/14/17 at 23:01; Status DC Clonidine (Catapres) 0.2 mg ONCE ONCE PO Last administered on 08/15/17 00:59 ; Start 08/15/17 at 00:45; Stop 08/15/17 at 00:46; Status DC Acetaminophen (Tylenol) 500 mg ONCE ONCE PO Last administered on 08/15/17 05: 11; Start 08/15/17 at 04:15; Stop 08/15/17 at 04:16; Status DC Naproxen (Naprosyn) 500 mg ONCE ONCE PO Last administered on 08/15/17 05:43; Start 08/15/17 at 05:30; Stop 08/15/17 at 05:31; Status DC Aspirin (Ecotrin Ec) 81 mg DAILY PO Last administered on 09/25/17at 09:00; Start 08/16/17 at 09:00 Aspirin (Ecotrin Ec) 81 mg DAILY PO ; Start 08/16/17 at 09:00; Status Cancel Clonidine (Catapres) 0.1 mg Q12HR PO Last administered on 08/16/17t 08:15; Start 08/15/17 at 21:00; Status Future Hold Thiamine HCl (Vitamin B1) 100 mg DAILY PO Last administered on 09/25/17 09:00 ; Start 08/16/17 at 09:00 Sodium Chloride (NS Flush) 2 ml UNSCH PRN IV FLUSH FLUSH AFTER USING IV ACCESS ; Start 08/15/17 at 17:15 Sodium Chloride (NS Flush) 2 ml BID IV FLUSH Last administered on 09/09/17at 08: 37; Start 08/15/17 at 21:00 Acetaminophen (Tylenol) 650 mg Q4H PRN PO TEMP > 100.4; Start 08/15/17 at 17:15 Ondansetron HCl (Zofran Inj) 4 mg Q6H PRN IVP NAUSEA OR VOMITING; Start at 17:15 Naloxone HCl (Narcan Inj) 0.4 mg UNSCH PRN IV PUSH SEE LABEL COMMENTS; Start 08/15/17 at 17:15 Senna/Docusate Sodium (Colleen-Colace) 1 tab BID PO Last administered on at 09:00; Start 08/15/17 at 21:00 Magnesium Hydroxide (Milk Of Magnesia Liq) 30 ml Q12H PRN PO Mild constipation ; Start 08/15/17 at 17:15 Sennosides (Senokot) 17.2 mg Q12H PRN PO Moderate constipation; Start 08/15/17 at 17:15 Bisacodyl (Dulcolax Supp) 10 mg DAILY PRN RECTAL SEVERE CONSITIPATION; Start 08/15/17 at 17:15 Lactulose (Lactulose Liq) 30 ml DAILY PRN PO SEVERE CONSITIPATION; Start at 17:15 Flumazenil (Romazicon Inj) 0.2 mg Q1M PRN IV PUSH SEE LABEL COMMENTS; Start at 13:15 Lorazepam (Ativan) 1 mg Q4H PRN PO CIWA 8 - 10; Start 08/16/17 at 13:15 Lorazepam (Ativan) 2 mg Q2H PRN PO CIWA 11-14; Start 08/16/17 at 13:15 Lorazepam (Ativan Inj) 2 mg Q1H PRN IV PUSH CIWA 15-20; Start 08/16/17 at 13:15 Lorazepam (Ativan Inj) 2 mg Q15M PRN IV PUSH CIWA > 20; Start 08/16/17 at 13:15 Amlodipine Besylate (Norvasc) 5 mg DAILY PO Last administered on 08/16/17t 14: 00; Start 08/16/17 at 14:00; Status Future Hold Enalaprilat (Vasotec Inj) 2.5 mg Q6H PRN IV PUSH SBP> OR = 180, DBP> OR = 100; Start 08/16/17 at 16:15 Risperidone (risperDAL) 0.5 mg BID PO ; Start 08/20/17 at 21:00; Stop at 13:06; Status DC Haloperidol Lactate (Haldol Inj) 2 mg Q6H PRN IM severe agitation and aggressi ; Start 08/20/17 at 13:15 Risperidone (risperDAL) 1 mg BID PO Last administered on 09/25/17at 09:00; Start 08/26/17 at 21:00 Clonidine (Catapres) 0.1 mg Q4H PRN PO SBP>160, DBP>90; Start 08/26/17 at 16: 15 Clonidine (Catapres-Tts 0.3 Mg Patch.7d) 1 patch Q7D T-DERMAL Last administered on 09/23/17at 22:38; Start 08/29/17 at 12:00 Haloperidol Decanoate (Haldol Decanoate Inj) 50 mg Q28D IM ; Start 08/29/17 at 12:00 A/P Assessment and Plan 61-year-old male who present with dementia and agitation dementia -Psychiatry specialist and psychiatrist recommended Risperdal for mood and Haldol for aggressive behavior. -Patient is Smith acted and per psychiatrist he does not have the capacity to make any medical decisions. - CT of the brain shows a large stable area of encephalomalacia involving the left middle cerebral artery territory suggesting an old CVA. Patient is on aspirin but will check lipid panel to see these a candidate for any statin therapy. PT recommended for Placement, versus going with relatives up north in [place]. -Neuropsych is following. Alcohol abuse: -Patient counseled. [facility] protocol. Hypertension: -Patient has been refusing all of his medications. Catapres patch ordered but patient refused Case management is trying to find a safe place for discharge Family does not want him to come back to them DVT prophylaxis: Fozia, Aimee Gonzalez. Ignacia Hull MD Sep 25, 2017 11:24
[2017-09-25 12:00] VITALS: BP 120/69; PULSE 64; RESP 16; TEMP 97.6; O2SAT 94
[2017-09-25 16:00] VITALS: BP 132/74; PULSE 60; RESP 16; TEMP 97; O2SAT 98
[2017-09-25 20:00] VITALS: BP 133/70; PULSE 82; RESP 18; TEMP 96; O2SAT 97
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
[2017-09-26 09:00] VITALS: BP 108/64; PULSE 62; RESP 16; TEMP 97; O2SAT 96
[2017-09-26] MEDS: THIAMINE HCL 100 MG TAB PO SCH (09:00)
[2017-09-26] MEDS: risperiDONE 1 MG TAB PO SCH ×2 (09:00→20:44)
[2017-09-26] MEDS: DOCUSATE SODIUM 50 MG/SENNA 8.6 MG TAB PO SCH ×2 (09:00→20:44)
[2017-09-26] MEDS: SODIUM CHLORIDE 0.9% FLUSH 10 ML FLUSH IV FLUSH SCH ×2 (09:00→20:44)
[2017-09-26] MEDS: ASPIRIN EC 81 MG TABEC PO SCH (09:00)
[2017-09-26 12:00] VITALS: BP 128/67; PULSE 60; RESP 16; TEMP 96.8; O2SAT 96
[2017-09-26] MEDS: cloNIDine HCL 0.3 MG/24 HR PATCH T-DERMAL SCH (12:00)
[2017-09-26] MEDS: HALOPERIDOL DECANOATE 50 MG/ML VIAL IM SCH (12:00)
--- NOTE | 2017-09-26 12:21 | HHI.PR ---
Subjective Remarks Pt doesn't speak to me at first. Then says "whatever" when I ask if I could examine him Objective Vitals Vital Signs Date Time Temp Pulse Resp B/P (MAP) Pulse Ox O2 Delivery O2 Flow Rate FiO2 09/26/17 09:00 97.0 62 16 108/64 (79) 96 09/25/17 20:00 96.0 82 18 133/70 (91) 97 09/25/17 16:00 97.0 60 16 132/74 (93) 98 I/O 09/25/17 09/25/17 09/25/17 09/26/17 09/26/17 09/26/17 07:00 15:00 23:00 07:00 15:00 23:00 Intake Total 780 ml 1080 ml 680 ml Output Total 1000 ml 325 ml 1000 ml Balance -220 ml 755 ml -320 ml Intake Oral 780 ml 1080 ml 680 ml Output Urine Total 1000 ml 325 ml 1000 ml # Bowel Movements 0 0 Imaging Last Impressions Head CT 08/14/17 0000 Signed Impressions: Service Date/Time: August 00:23 - CONCLUSION: 1. Large stable area of encephalomalacia involving the left middle cerebral artery territory consistent with an area of infarction. 2. No acute hemorrhage, mass or acute infarction identified. Gopal Mendez MD Objective Remarks GENERAL: sitting on side of bed MSK: moving upper extremities and drinking his coffee lungs are clear HR appear regular Able to speak a few words but doesn't speak much to me, stares in front of him and briefly will look at me at times Procedures None A/P Assessment and Plan update 09/26/17: No new changes to management. Vitals reviewed and are stable. Awaiting placement. 61-year-old male who present with dementia and agitation dementia -Psychiatry specialist and psychiatrist recommended Risperdal for mood and Haldol for aggressive behavior. -Patient is Smith acted and per psychiatrist he does not have the capacity to make any medical decisions. - CT of the brain shows a large stable area of encephalomalacia involving the left middle cerebral artery territory suggesting an old CVA. Patient is on aspirin but will check lipid panel to see these a candidate for any statin therapy. PT recommended for Placement, versus going with relatives up [place] in [place]. -Neuropsych is following. Alcohol abuse: -Patient counseled. [facility] protocol. Hypertension: -Patient has been refusing most of his medications. Catapres patch ordered but patient refused Case management is trying to find a safe place for discharge Family does not want him to come back to them DVT prophylaxis: GABRIELA Marcelo Lovenox. Discharge Planning CM working on placement Ivana Paniagua MD Sep 26, 2017 12:21
[2017-09-26 16:00] VITALS: BP 126/68; PULSE 75; RESP 18; TEMP 96.9; O2SAT 95
[2017-09-26 20:00] VITALS: BP 144/70; PULSE 59; RESP 16; TEMP 97.7; O2SAT 97
[2017-09-27] VITALS: BP 124/83; PULSE 57; RESP 16; TEMP 97.4; O2SAT 94
[2017-09-27 08:00] VITALS: BP 113/60; PULSE 62; RESP 18; O2SAT 99
[2017-09-27] MEDS: SODIUM CHLORIDE 0.9% FLUSH 10 ML FLUSH IV FLUSH SCH ×2 (09:00→21:00)
--- NOTE | 2017-09-27 11:31 | HHI.PR ---
Subjective Remarks Pt wants some coffee. doesn't say much appears comfortable. Objective Vitals Vital Signs Date Time Temp Pulse Resp B/P (MAP) Pulse Ox O2 Delivery O2 Flow Rate FiO2 09/27/17 08:00 62 18 113/60 (77) 99 09/27/17 00:00 97.4 57 16 124/83 (97) 94 09/26/17 20:00 97.7 59 16 144/70 (94) 97 09/26/17 16:00 96.9 75 18 126/68 (87) 95 09/26/17 12:00 96.8 60 16 128/67 (87) 96 I/O 09/26/17 09/26/17 09/26/17 09/27/17 09/27/17 09/27/17 07:00 15:00 23:00 07:00 15:00 23:00 Intake Total 680 ml 1250 ml Output Total 1000 ml 850 ml 600 ml Balance -320 ml 400 ml -600 ml Intake Oral 680 ml 1250 ml Output Urine Total 1000 ml 850 ml 600 ml # Bowel Movements 0 0 Imaging Last Impressions Head CT 08/14/17 0000 Signed Impressions: Service Date/Time: August 00:23 - CONCLUSION: 1. Large stable area of encephalomalacia involving the left middle cerebral artery territory consistent with an area of infarction. 2. No acute hemorrhage, mass or acute infarction identified. Gopal Mendez MD Objective Remarks GENERAL: laying in bed, had called the vest front presser MSK: hold the call button w his left hand lungs are clear HR appear regular Able to speak a few words but doesn't speak much to me Procedures None A/P Assessment and Plan update 09/27/17: No new changes to management. Vitals reviewed and are stable. Awaiting placement. 61-year-old male who present with dementia and agitation dementia -Psychiatry specialist and psychiatrist recommended Risperdal for mood and Haldol for aggressive behavior. -Patient is Smith acted and per psychiatrist he does not have the capacity to make any medical decisions. - CT of the brain shows a large stable area of encephalomalacia involving the left middle cerebral artery territory suggesting an old CVA. Patient is on aspirin but will check lipid panel to see these a candidate for any statin therapy. PT recommended for Placement, versus going with relatives up [place] in [place]. -Neuropsych is following. Alcohol abuse: -Patient counseled. [facility] protocol. Hypertension: -Patient has been refusing most of his medications. Catapres patch ordered but patient refused Case management is trying to find a safe place for discharge Family does not want him to come back to them DVT prophylaxis: Fozia, Aimee Gonzalez. Discharge Planning CM working on placement Ivana Paniagua MD Sep 27, 2017 11:31
[2017-09-27 12:00] VITALS: BP 131/80; PULSE 62; RESP 17; O2SAT 99
[2017-09-27] MEDS: risperiDONE 1 MG TAB PO SCH ×2 (12:00→21:00)
[2017-09-27] MEDS: THIAMINE HCL 100 MG TAB PO SCH (12:00)
[2017-09-27] MEDS: ASPIRIN EC 81 MG TABEC PO SCH (12:00)
[2017-09-27] MEDS: DOCUSATE SODIUM 50 MG/SENNA 8.6 MG TAB PO SCH ×2 (12:00→21:00)
[2017-09-27 16:00] VITALS: BP 141/83; PULSE 67; RESP 18; O2SAT 99
[2017-09-27 20:00] VITALS: BP 149/79; PULSE 56; RESP 16; TEMP 96.9; O2SAT 92
[2017-09-28 08:00] VITALS: BP 144/78; PULSE 54; RESP 20; TEMP 95.5; O2SAT 97
[2017-09-28] MEDS: DOCUSATE SODIUM 50 MG/SENNA 8.6 MG TAB PO SCH ×3 (09:00→20:36)
[2017-09-28] MEDS: THIAMINE HCL 100 MG TAB PO SCH ×2 (09:00→12:54)
[2017-09-28] MEDS: SODIUM CHLORIDE 0.9% FLUSH 10 ML FLUSH IV FLUSH SCH ×2 (09:00→20:36)
[2017-09-28] MEDS: ASPIRIN EC 81 MG TABEC PO SCH ×2 (09:00→12:54)
[2017-09-28] MEDS: risperiDONE 1 MG TAB PO SCH ×3 (09:00→20:36)
[2017-09-28 12:00] VITALS: BP 133/76; PULSE 68; RESP 18; TEMP 98; O2SAT 98
--- NOTE | 2017-09-28 14:28 | HHI.PR ---
Subjective Remarks Pt sitting on wheelchair looking at the window. States "can't wait to get the hell out of here" no complaints Objective Vitals Vital Signs Date Time Temp Pulse Resp B/P (MAP) Pulse Ox O2 Delivery O2 Flow Rate FiO2 09/28/17 12:00 98.0 68 18 133/76 (95) 98 09/28/17 08:00 95.5 54 20 144/78 (100) 97 09/27/17 20:00 96.9 56 16 149/79 (102) 92 09/27/17 16:00 67 18 141/83 (102) 99 I/O 09/27/17 09/27/17 09/27/17 09/28/17 09/28/17 09/28/17 07:00 15:00 23:00 07:00 15:00 23:00 Intake Total 1200 ml Output Total 600 ml 1500 ml 775 ml Balance -600 ml -300 ml -775 ml Intake Oral 1200 ml Output Urine Total 600 ml 1500 ml 775 ml # Bowel Movements 1 Imaging Last Impressions Head CT 08/14/17 0000 Signed Impressions: Service Date/Time: August 00:23 - CONCLUSION: 1. Large stable area of encephalomalacia involving the left middle cerebral artery territory consistent with an area of infarction. 2. No acute hemorrhage, mass or acute infarction identified. Gopal Mendez MD Objective Remarks GENERAL: sitting on wheelchair staring at the window MSK: hold his coffee cup lungs are clear HR appear regular speaks briefly Procedures None A/P Assessment and Plan update 09/28/17: No new changes to management. Vitals reviewed and are stable. Awaiting placement. 61-year-old male who present with dementia and agitation dementia -Psychiatry specialist and psychiatrist recommended Risperdal for mood and Haldol for aggressive behavior. -Patient is Smith acted and per psychiatrist he does not have the capacity to make any medical decisions. - CT of the brain shows a large stable area of encephalomalacia involving the left middle cerebral artery territory suggesting an old CVA. Patient is on aspirin but will check lipid panel to see these a candidate for any statin therapy. PT recommended for Placement, versus going with relatives up [place] in [place]. -Neuropsych is following. Alcohol abuse: -Patient counseled. [facility] protocol. Hypertension: -Patient has been refusing most of his medications. Catapres patch ordered but patient refused Case management is trying to find a safe place for discharge Family does not want him to come back to them DVT prophylaxis: Fozia, Aimee Gonzalez. Discharge Planning CM working on placement Ivana Paniagua MD Sep 28, 2017 14:28
[2017-09-28 16:00] VITALS: BP 167/94; PULSE 94; RESP 20; TEMP 97.9; O2SAT 98
[2017-09-28 20:00] VITALS: BP 104/73; PULSE 65; RESP 18; TEMP 97.8; O2SAT 97
[2017-09-29] VITALS: BP 104/53; PULSE 63; RESP 18; TEMP 97.6; O2SAT 97
[2017-09-29 08:00] VITALS: BP 126/60; PULSE 51; RESP 17; TEMP 96.3; O2SAT 97
[2017-09-29] MEDS: SODIUM CHLORIDE 0.9% FLUSH 10 ML FLUSH IV FLUSH SCH ×2 (09:00→21:00)
[2017-09-29] MEDS: DOCUSATE SODIUM 50 MG/SENNA 8.6 MG TAB PO SCH ×2 (09:52→21:00)
[2017-09-29] MEDS: ASPIRIN EC 81 MG TABEC PO SCH (09:52)
[2017-09-29] MEDS: risperiDONE 1 MG TAB PO SCH ×2 (09:53→22:13)
[2017-09-29] MEDS: THIAMINE HCL 100 MG TAB PO SCH (09:53)
[2017-09-29 12:00] VITALS: BP 156/70; PULSE 73; RESP 17; TEMP 98.6; O2SAT 97
--- NOTE | 2017-09-29 13:54 | HHI.PR ---
Subjective Remarks Pt eating lunch. Doesn't say much today. Objective Vitals Vital Signs Date Time Temp Pulse Resp B/P (MAP) Pulse Ox O2 Delivery O2 Flow Rate FiO2 09/29/17 12:00 98.6 73 17 156/70 (98) 97 09/29/17 08:00 96.3 51 17 126/60 (82) 97 09/29/17 00:00 97.6 63 18 104/53 (70) 97 09/28/17 20:00 97.8 65 18 104/73 (83) 97 09/28/17 16:00 97.9 94 20 167/94 (118) 98 I/O 09/28/17 09/28/17 09/28/17 09/29/17 09/29/17 09/29/17 06:59 14:59 22:59 06:59 14:59 22:59 Intake Total 2240 ml 480 ml Output Total 775 ml 1400 ml 600 ml Balance -775 ml 840 ml -120 ml Intake Oral 2240 ml 480 ml Output Urine Total 775 ml 1400 ml 600 ml # Bowel Movements 0 Imaging Last Impressions Head CT 08/14/17 0000 Signed Impressions: Service Date/Time: August 00:23 - CONCLUSION: 1. Large stable area of encephalomalacia involving the left middle cerebral artery territory consistent with an area of infarction. 2. No acute hemorrhage, mass or acute infarction identified. Gopal Mendez MD Objective Remarks GENERAL: sitting on bed eating lunch MSK: trying to open cup of apples w left hand lungs are clear HR appear regular doesn't really say much to me Procedures None A/P Assessment and Plan update 09/29/17: No new changes to management. Vitals reviewed and are stable. Awaiting placement. 61-year-old male who present with dementia and agitation dementia -Psychiatry specialist and psychiatrist recommended Risperdal for mood and Haldol for aggressive behavior. -Patient is Smith acted and per psychiatrist he does not have the capacity to make any medical decisions. - CT of the brain shows a large stable area of encephalomalacia involving the left middle cerebral artery territory suggesting an old CVA. Patient is on aspirin but will check lipid panel to see these a candidate for any statin therapy. PT recommended for Placement, versus going with relatives up [place] in [place]. -Neuropsych is following. Alcohol abuse: -Patient counseled. [facility] protocol. Hypertension: -Patient has been refusing most of his medications. Catapres patch ordered but patient refused Case management is trying to find a safe place for discharge Family does not want him to come back to them DVT prophylaxis: GABRIELA Marcelo Lovenox. Discharge Planning CM working on placement Ivana Paniagua MD Sep 29, 2017 13:54
[2017-09-29 16:00] VITALS: BP 142/76; PULSE 67; RESP 17; TEMP 96.4; O2SAT 98
[2017-09-29 20:00] VITALS: BP 141/73; PULSE 59; RESP 20; TEMP 98.1; O2SAT 97
[2017-09-30 08:00] VITALS: BP 125/61; PULSE 52; RESP 18; TEMP 96.8; O2SAT 98
[2017-09-30] MEDS: SODIUM CHLORIDE 0.9% FLUSH 10 ML FLUSH IV FLUSH SCH ×2 (09:00→21:00)
[2017-09-30] MEDS: risperiDONE 1 MG TAB PO SCH ×2 (09:00→21:00)
[2017-09-30] MEDS: DOCUSATE SODIUM 50 MG/SENNA 8.6 MG TAB PO SCH ×2 (09:00→21:00)
[2017-09-30] MEDS: THIAMINE HCL 100 MG TAB PO SCH (09:00)
[2017-09-30] MEDS: ASPIRIN EC 81 MG TABEC PO SCH (09:00)
--- NOTE | 2017-09-30 13:47 | HHI.PR ---
Subjective Remarks No new complaints from the patient. Patient has dementia. No changes from yesterday. Awaiting placement. Objective Vital Signs Date Time Temp Pulse Resp B/P (MAP) Pulse Ox O2 Delivery O2 Flow Rate FiO2 09/30/17 08:00 96.8 52 18 125/61 (82) 98 09/29/17 20:00 98.1 59 20 141/73 (95) 97 09/29/17 16:00 96.4 67 17 142/76 (98) 98 I/O 09/29/17 09/29/17 09/29/17 09/30/17 09/30/17 09/30/17 07:00 15:00 23:00 07:00 15:00 23:00 Intake Total 480 ml 2160 ml 760 ml Output Total 600 ml 300 ml 1200 ml Balance -120 ml 1860 ml -440 ml Intake Oral 480 ml 2160 ml 760 ml Output Urine Total 600 ml 300 ml 1200 ml # Bowel Movements 0 0 Procedures None Objective Remarks GENERAL: NAD, A&Ox0 HEAD: Normocephalic. NECK: Supple, trachea midline. No lymphadenopathy. EYES: No scleral icterus. No injection or drainage. CARDIOVASCULAR: Regular rate and rhythm without murmurs, gallops, or rubs. RESPIRATORY: Breath sounds equal bilaterally. No accessory muscle use. GASTROINTESTINAL: Abdomen soft, non-tender, nondistended. MUSCULOSKELETAL: No cyanosis, or edema. SKIN: Warm and dry. NEURO: No focal neurological deficitis. 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 Awaiting placement. dementia Recently stable Plan for placement Alcohol abuse history Counseled to quit Hypertension Catapres patch Follow blood pressures DVT prophylaxis Lovenox Discharge planning Difficult placement Placement pending Problem Qualifiers (1) Dementia associated with alcoholism: Qualified Codes: F10.97 - Alcohol use, unspecified with alcohol-induced persisting dementia Daquan Chen MD Sep 30, 2017 13:47
[2017-09-30 16:00] VITALS: BP 129/76; PULSE 59; RESP 18; TEMP 97.3; O2SAT 99
[2017-09-30 20:00] VITALS: BP 177/86; PULSE 57; RESP 16; TEMP 98; O2SAT 97
[2017-10-01] MEDS: risperiDONE 1 MG TAB PO SCH ×2 (07:43→21:00)
[2017-10-01] MEDS: ASPIRIN EC 81 MG TABEC PO SCH (07:43)
[2017-10-01] MEDS: THIAMINE HCL 100 MG TAB PO SCH (07:43)
[2017-10-01] MEDS: SODIUM CHLORIDE 0.9% FLUSH 10 ML FLUSH IV FLUSH SCH ×2 (07:45→21:00)
[2017-10-01] MEDS: DOCUSATE SODIUM 50 MG/SENNA 8.6 MG TAB PO SCH ×2 (07:45→21:00)
[2017-10-01 08:00] VITALS: BP 119/56; PULSE 52; RESP 18; TEMP 97.2; O2SAT 96
[2017-10-01 12:00] VITALS: BP 138/72; PULSE 62; RESP 18; TEMP 97.5; O2SAT 97
--- NOTE | 2017-10-01 12:20 | HHI.PR ---
Subjective Remarks No new complaints from the patient. He wants to go back to [place]. Appropriate coherence of his actual situation is not present. Patient has dementia. Awaiting placement. Objective Vital Signs Date Time Temp Pulse Resp B/P (MAP) Pulse Ox O2 Delivery O2 Flow Rate FiO2 10/01/17 12:00 97.5 62 18 138/72 (94) 97 10/01/17 08:00 97.2 52 18 119/56 (77) 96 09/30/17 20:00 98.0 57 16 177/86 (116) 97 09/30/17 16:00 97.3 59 18 129/76 (93) 99 I/O 09/30/17 09/30/17 09/30/17 10/01/17 10/01/17 10/01/17 07:00 15:00 23:00 07:00 15:00 23:00 Intake Total 760 ml Output Total 1200 ml 600 ml Balance -440 ml -600 ml Intake Oral 760 ml Output Urine Total 1200 ml 600 ml # Bowel Movements 0 Procedures None Objective Remarks GENERAL: NAD, A&Ox0 HEAD: Normocephalic. NECK: Supple, trachea midline. No lymphadenopathy. EYES: No scleral icterus. No injection or drainage. CARDIOVASCULAR: Regular rate and rhythm without murmurs, gallops, or rubs. RESPIRATORY: Breath sounds equal bilaterally. No accessory muscle use. GASTROINTESTINAL: Abdomen soft, non-tender, nondistended. MUSCULOSKELETAL: No cyanosis, or edema. SKIN: Warm and dry. NEURO: No focal neurological deficitis. 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 Awaiting placement. No changes compared to yesterday. dementia Recently stable Plan for placement Alcohol abuse history Counseled to quit Hypertension Catapres patch Follow blood pressures DVT prophylaxis Lovenox Discharge planning Difficult placement Placement pending Problem Qualifiers (1) Dementia associated with alcoholism: Qualified Codes: F10.97 - Alcohol use, unspecified with alcohol-induced persisting dementia Daquan Chen MD Oct 01, 2017 12:20
[2017-10-01 16:00] VITALS: BP 129/57; PULSE 88; RESP 16; TEMP 97.7; O2SAT 94
[2017-10-01 20:00] VITALS: BP 135/68; PULSE 87; RESP 18; TEMP 98; O2SAT 100
[2017-10-02] MEDS: ASPIRIN EC 81 MG TABEC PO SCH (07:18)
[2017-10-02] MEDS: SODIUM CHLORIDE 0.9% FLUSH 10 ML FLUSH IV FLUSH SCH ×2 (07:18→21:00)
[2017-10-02] MEDS: risperiDONE 1 MG TAB PO SCH ×2 (07:18→21:00)
[2017-10-02] MEDS: DOCUSATE SODIUM 50 MG/SENNA 8.6 MG TAB PO SCH ×2 (07:18→21:00)
[2017-10-02] MEDS: THIAMINE HCL 100 MG TAB PO SCH (07:18)
[2017-10-02 08:00] VITALS: BP 126/61; PULSE 51; RESP 17; TEMP 96.1; O2SAT 97
[2017-10-02 12:00] VITALS: BP 131/69; PULSE 62; RESP 17; TEMP 97.1; O2SAT 98
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
--- NOTE | 2017-10-02 15:46 | HHI.PR ---
Subjective Remarks Unchanged from previous day. No new complaints from the patient. He wants to go back to [place]. Appropriate coherence of his actual situation is not present. Patient has dementia. Awaiting placement. Objective Vital Signs Date Time Temp Pulse Resp B/P (MAP) Pulse Ox O2 Delivery O2 Flow Rate FiO2 10/02/17 12:00 97.1 62 17 131/69 (89) 98 10/02/17 08:00 96.1 51 17 126/61 (82) 97 10/01/17 20:00 98.0 87 18 135/68 (90) 100 10/01/17 16:00 97.7 88 16 129/57 (81) 94 I/O 10/01/17 10/01/17 10/01/17 10/02/17 10/02/17 10/02/17 07:00 15:00 23:00 07:00 15:00 23:00 Output Total 600 ml 250 ml 1300 ml Balance -600 ml -250 ml -1300 ml Output Urine Total 600 ml 250 ml 1300 ml Procedures None Objective Remarks GENERAL: NAD, A&Ox0 HEAD: Normocephalic. NECK: Supple, trachea midline. No lymphadenopathy. EYES: No scleral icterus. No injection or drainage. CARDIOVASCULAR: Regular rate and rhythm without murmurs, gallops, or rubs. RESPIRATORY: Breath sounds equal bilaterally. No accessory muscle use. GASTROINTESTINAL: Abdomen soft, non-tender, nondistended. MUSCULOSKELETAL: No cyanosis, or edema. SKIN: Warm and dry. NEURO: No focal neurological deficitis. 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 No significant changes compared to yesterday. Placement pending. dementia Recently stable Plan for placement Alcohol abuse history Counseled to quit Hypertension Catapres patch Follow blood pressures DVT prophylaxis Lovenox Discharge planning Difficult placement Placement pending Problem Qualifiers (1) Dementia associated with alcoholism: Qualified Codes: F10.97 - Alcohol use, unspecified with alcohol-induced persisting dementia Daquan Chen MD Oct 02, 2017 15:46
[2017-10-02 16:00] VITALS: BP 141/70; PULSE 54; RESP 17; TEMP 97; O2SAT 97
[2017-10-02 20:00] VITALS: BP 168/77; PULSE 65; RESP 18; TEMP 97.2; O2SAT 96
[2017-10-03 08:00] VITALS: BP 95/63; PULSE 47; RESP 17; TEMP 96.3; O2SAT 95
[2017-10-03] MEDS: SODIUM CHLORIDE 0.9% FLUSH 10 ML FLUSH IV FLUSH SCH ×2 (09:00→21:00)
[2017-10-03] MEDS: THIAMINE HCL 100 MG TAB PO SCH (11:00)
[2017-10-03] MEDS: ASPIRIN EC 81 MG TABEC PO SCH (11:00)
[2017-10-03] MEDS: DOCUSATE SODIUM 50 MG/SENNA 8.6 MG TAB PO SCH ×2 (11:00→21:00)
[2017-10-03] MEDS: risperiDONE 1 MG TAB PO SCH ×2 (11:00→21:00)
[2017-10-03 12:00] VITALS: BP 128/60; PULSE 50; RESP 19; TEMP 96.5; O2SAT 95
[2017-10-03] MEDS: cloNIDine HCL 0.3 MG/24 HR PATCH T-DERMAL SCH (12:00)
--- NOTE | 2017-10-03 12:15 | HHI.PR ---
Subjective Remarks Mr. Bo is a 62-year-old male. At baseline he has a cognitive deficit secondary to history of alcohol abuse and CVA. He has some motor deficit from this and also has a significant expressive aphasia. Cognition is difficult to determine based on his difficulty in communication. I do feel he may have some cognitive dysfunction but I don't feel this prohibits him from competent choice making. He may have an element of dementia also but this is not severe or progressive. Etiology for his dementia would be suspect to be vascular related or possible alcohol-related. An underlying mood disorder Frustration from his clinical state has also made it difficult to interact with them communicate with the patient, most of the time he uses profanity and asked us to leave. Objective Vital Signs Date Time Temp Pulse Resp B/P (MAP) Pulse Ox O2 Delivery O2 Flow Rate FiO2 10/03/17 08:00 96.3 47 17 95/63 (74) 95 10/02/17 20:00 97.2 65 18 168/77 (107) 96 10/02/17 16:00 97.0 54 17 141/70 (93) 97 I/O 10/02/17 10/02/17 10/02/17 10/03/17 10/03/17 10/03/17 07:00 15:00 23:00 07:00 15:00 23:00 Intake Total 1440 ml 980 ml Output Total 1300 ml 925 ml 1000 ml Balance -1300 ml 515 ml -20 ml Intake Oral 1440 ml 980 ml Output Urine Total 1300 ml 925 ml 1000 ml # Bowel Movements 1 1 Procedures None Objective Remarks GENERAL: NAD, A&Ox0 (by ability to respond), inferred capacity is A&Ox3 based on behavior. HEAD: Normocephalic. NECK: Supple, trachea midline. No lymphadenopathy. EYES: No scleral icterus. No injection or drainage. CARDIOVASCULAR: Regular rate and rhythm without murmurs, gallops, or rubs. RESPIRATORY: Breath sounds equal bilaterally. No accessory muscle use. GASTROINTESTINAL: Abdomen soft, non-tender, nondistended. MUSCULOSKELETAL: No cyanosis, or edema. SKIN: Warm and dry. NEURO: No focal neurological deficitis. 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 No significant changes compared to yesterday. Placement pending. Vascular dementia (mild) Alcohol abuse history History of CVA Severe expressive aphasia Baseline mood disorder Mental status is stable Patient will benefit from lifelong assistance Mental capacity is intact for decision making an understanding of consequences Patient has been counseled to quit alcohol Hypertension Catapres patch Follow blood pressures DVT prophylaxis Lovenox Discharge planning Difficult placement Placement pending Problem Qualifiers (1) Dementia associated with alcoholism: Qualified Codes: F10.97 - Alcohol use, unspecified with alcohol-induced persisting dementia Daquan Chen MD Oct 03, 2017 12:15
[2017-10-03 16:00] VITALS: BP 115/64; PULSE 54; RESP 18; TEMP 97.4; O2SAT 97
[2017-10-03 20:00] VITALS: BP 154/88; PULSE 80; RESP 18; TEMP 97.9; O2SAT 97
[2017-10-04 08:00] VITALS: BP 143/65; PULSE 55; RESP 17; TEMP 96.7; O2SAT 98
[2017-10-04] MEDS: SODIUM CHLORIDE 0.9% FLUSH 10 ML FLUSH IV FLUSH SCH ×2 (09:00→20:13)
[2017-10-04] MEDS: risperiDONE 1 MG TAB PO SCH ×2 (09:00→20:13)
[2017-10-04] MEDS: ASPIRIN EC 81 MG TABEC PO SCH (09:00)
[2017-10-04] MEDS: DOCUSATE SODIUM 50 MG/SENNA 8.6 MG TAB PO SCH ×2 (09:00→20:13)
[2017-10-04] MEDS: THIAMINE HCL 100 MG TAB PO SCH (09:00)
[2017-10-04 12:00] VITALS: BP 131/86; PULSE 54; RESP 17; TEMP 98.2; O2SAT 98
--- NOTE | 2017-10-04 13:49 | HHI.PR ---
Subjective Remarks Mr. Bo is a 62-year-old male. At baseline he has a cognitive deficit secondary to history of alcohol abuse and CVA. He has some motor deficit from this and also has a significant expressive aphasia. Cognition is difficult to determine based on his difficulty in communication. I do feel he may have some cognitive dysfunction but I don't feel this prohibits him from competent choice making. He may have an element of dementia also but this is not severe or progressive. Etiology for his dementia would be suspect to be vascular related or possible alcohol-related. An underlying mood disorder Frustration from his clinical state has also made it difficult to interact with them communicate with the patient, most of the time he uses profanity and asked us to leave. Doing well today. No changes from previous day. Objective Vital Signs Date Time Temp Pulse Resp B/P (MAP) Pulse Ox O2 Delivery O2 Flow Rate FiO2 10/04/17 12:00 98.2 54 17 131/86 (101) 98 10/04/17 08:00 96.7 55 17 143/65 (91) 98 10/03/17 20:00 97.9 80 18 154/88 (110) 97 10/03/17 16:00 97.4 54 18 115/64 (81) 97 I/O 10/03/17 10/03/17 10/03/17 10/04/17 10/04/17 10/04/17 07:00 15:00 23:00 07:00 15:00 23:00 Intake Total 980 ml 1155 ml 780 ml Output Total 1000 ml 1050 ml 1700 ml Balance -20 ml 105 ml -920 ml Intake Oral 980 ml 1155 ml 780 ml Output Urine Total 1000 ml 1050 ml 1700 ml # Bowel Movements 1 1 Procedures None Objective Remarks GENERAL: NAD, A&Ox0 (by ability to respond), inferred capacity is A&Ox3 based on behavior. HEAD: Normocephalic. NECK: Supple, trachea midline. No lymphadenopathy. EYES: No scleral icterus. No injection or drainage. CARDIOVASCULAR: Regular rate and rhythm without murmurs, gallops, or rubs. RESPIRATORY: Breath sounds equal bilaterally. No accessory muscle use. GASTROINTESTINAL: Abdomen soft, non-tender, nondistended. MUSCULOSKELETAL: No cyanosis, or edema. SKIN: Warm and dry. NEURO: No focal neurological deficitis. 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 No significant changes compared to yesterday. Placement pending. She had contacted the [employer] and has money coming from his bank. He plans to leave here once he has the financial means. Though his ability to communicate effectively is not intact his cognition appears intact. Vascular dementia (mild) Alcohol abuse history History of CVA Severe expressive aphasia Baseline mood disorder Mental status is stable Patient will benefit from lifelong assistance Mental capacity is intact for decision making an understanding of consequences Patient has been counseled to quit alcohol Hypertension Catapres patch Follow blood pressures DVT prophylaxis Lovenox Discharge planning Difficult placement Placement pending Problem Qualifiers (1) Dementia associated with alcoholism: Qualified Codes: F10.97 - Alcohol use, unspecified with alcohol-induced persisting dementia Daquan Chen MD Oct 04, 2017 13:49
[2017-10-04 16:00] VITALS: BP 129/80; PULSE 64; RESP 17; TEMP 97.2; O2SAT 100
[2017-10-04 20:00] VITALS: BP 122/69; PULSE 64; RESP 17; TEMP 98.7; O2SAT 98
[2017-10-05] MEDS: ACETAMINOPHEN 325 MG TAB PO PRN ×2 (02:20→08:47)
[2017-10-05 08:00] VITALS: BP 149/83; PULSE 73; RESP 17; TEMP 96.5; O2SAT 99
[2017-10-05] MEDS: risperiDONE 1 MG TAB PO SCH (08:42)
[2017-10-05] MEDS: ASPIRIN EC 81 MG TABEC PO SCH (08:47)
[2017-10-05] MEDS: DOCUSATE SODIUM 50 MG/SENNA 8.6 MG TAB PO SCH ×2 (08:47→21:00)
[2017-10-05] MEDS: SODIUM CHLORIDE 0.9% FLUSH 10 ML FLUSH IV FLUSH SCH ×2 (08:47→21:00)
[2017-10-05] MEDS: THIAMINE HCL 100 MG TAB PO SCH (08:48)
[2017-10-05 09:50] LABS: BICARBONATE 26.6 MEQ/L (21.0-32.0); CALCIUM 9.2 MG/DL (8.5-10.1); CREATININE 0.7 MG/DL (0.60-1.30)
[2017-10-05 12:00] VITALS: BP 125/67; PULSE 53; RESP 16; TEMP 95.7; O2SAT 98
--- NOTE | 2017-10-05 14:55 | HHI.PR ---
Subjective Remarks Mr. Bo is a 62-year-old male. At baseline he has a cognitive deficit secondary to a longstanding history of alcohol abuse and several CVAs. He has some motor deficit from this and also has a severe expressive aphasia. Cognition is difficult to determine based on his difficulty in communication. I do feel he may have some cognitive dysfunction but I don't feel this prohibits him from competent decision making. He may or may not have a mild element of dementia also but this is not severe or progressive and would not prohibit him from full autonomy and comprehension. Etiology for his dementia would be suspect to be vascular related or possible alcohol-related. An underlying mood disorder with frustration from his clinical state has also made it difficult to interact with the patient sometimes, but he has not demonstrated any incoherence for the duration of my care of him. Doing well today. No changes from previous day. Objective Vital Signs Date Time Temp Pulse Resp B/P (MAP) Pulse Ox O2 Delivery O2 Flow Rate FiO2 10/05/17 12:00 95.7 53 16 125/67 (86) 98 10/05/17 08:00 96.5 73 17 149/83 (105) 99 10/04/17 20:00 98.7 64 17 122/69 (86) 98 10/04/17 16:00 97.2 64 17 129/80 (96) 100 I/O 10/04/17 10/04/17 10/04/17 10/05/17 10/05/17 10/05/17 07:00 15:00 23:00 07:00 15:00 23:00 Intake Total 780 ml 1440 ml 480 ml Output Total 1700 ml 650 ml 1200 ml Balance -920 ml 790 ml -720 ml Intake Oral 780 ml 1440 ml 480 ml Output Urine Total 1700 ml 650 ml 1200 ml # Voids 1 # Bowel Movements 0 0 Result Diagram: 10/05/17 0800 Procedures None Objective Remarks GENERAL: NAD, A&Ox0 (by ability to respond), inferred capacity is A&Ox3 based on behavior. HEAD: Normocephalic. NECK: Supple, trachea midline. No lymphadenopathy. EYES: No scleral icterus. No injection or drainage. CARDIOVASCULAR: Regular rate and rhythm without murmurs, gallops, or rubs. RESPIRATORY: Breath sounds equal bilaterally. No accessory muscle use. GASTROINTESTINAL: Abdomen soft, non-tender, nondistended. MUSCULOSKELETAL: No cyanosis, or edema. SKIN: Warm and dry. NEURO: No focal neurological deficitis. 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 No significant changes compared to yesterday. Placement pending. He had contacted the bank and has money coming from his bank. He plans to leave here once he has the financial means. His ability to communicate effectively is not intact his cognition appears intact. He is hoping to have assistance in arranging transport (due to his speech impediments). Vascular dementia (mild) Alcohol abuse history History of CVA Severe expressive aphasia Baseline mood disorder Mental status is stable Patient will benefit from lifelong assistance Mental capacity is intact for decision making an understanding of consequences Patient has been counseled to quit alcohol Hypertension Catapres patch Follow blood pressures DVT prophylaxis Lovenox Discharge planning Difficult placement Patient is planning to arrange transport to [place]. Problem Qualifiers (1) Dementia associated with alcoholism: Qualified Codes: F10.97 - Alcohol use, unspecified with alcohol-induced persisting dementia Daquan Chen MD Oct 05, 2017 14:55
[2017-10-05] MEDS ORDERED: traMADol HCL 50 MG TAB PO PRN (15:00)
[2017-10-05 16:00] VITALS: BP 135/85; PULSE 52; RESP 16; TEMP 97; O2SAT 97
[2017-10-05 20:00] VITALS: BP 157/72; PULSE 61; RESP 20; TEMP 97.6; O2SAT 98
[2017-10-06] VITALS: BP 136/66; PULSE 58; RESP 18; TEMP 97.4; O2SAT 98
[2017-10-06] MEDS: DOCUSATE SODIUM 50 MG/SENNA 8.6 MG TAB PO SCH ×2 (09:00→21:00)
[2017-10-06] MEDS: THIAMINE HCL 100 MG TAB PO SCH (09:00)
[2017-10-06] MEDS: risperiDONE 1 MG TAB PO SCH ×3 (09:00→23:30)
[2017-10-06] MEDS: ASPIRIN EC 81 MG TABEC PO SCH (09:00)
[2017-10-06] MEDS: SODIUM CHLORIDE 0.9% FLUSH 10 ML FLUSH IV FLUSH SCH ×2 (09:00→21:00)
[2017-10-06 12:00] VITALS: BP 139/64; PULSE 65; RESP 18; TEMP 98.9; O2SAT 99
[2017-10-06 16:00] VITALS: BP 127/68; PULSE 72; RESP 20; TEMP 98.6; O2SAT 99
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
[2017-10-06 20:00] VITALS: BP 151/70; PULSE 62; RESP 18; TEMP 97.2; O2SAT 99
[2017-10-07] VITALS: BP 138/66; PULSE 74; RESP 18; TEMP 97.4; O2SAT 97
[2017-10-07 08:00] VITALS: BP 106/53; PULSE 58; RESP 18; TEMP 98.9; O2SAT 98
[2017-10-07] MEDS: ASPIRIN EC 81 MG TABEC PO SCH (09:00)
[2017-10-07] MEDS: SODIUM CHLORIDE 0.9% FLUSH 10 ML FLUSH IV FLUSH SCH ×2 (09:00→20:12)
[2017-10-07] MEDS: THIAMINE HCL 100 MG TAB PO SCH (09:00)
[2017-10-07] MEDS: risperiDONE 1 MG TAB PO SCH ×2 (09:00→20:12)
[2017-10-07] MEDS: DOCUSATE SODIUM 50 MG/SENNA 8.6 MG TAB PO SCH ×2 (09:00→20:12)
[2017-10-07 16:00] VITALS: BP 176/92; PULSE 59; RESP 16; TEMP 98.6; O2SAT 97
[2017-10-07] MEDS ORDERED: hydrOXYzine PAMOATE 25 MG CAP PO PRN (17:30)
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
[2017-10-08] MEDS: SODIUM CHLORIDE 0.9% FLUSH 10 ML FLUSH IV FLUSH SCH (09:00)
[2017-10-08] MEDS: risperiDONE 1 MG TAB PO SCH (09:00)
[2017-10-08] MEDS: ASPIRIN EC 81 MG TABEC PO SCH (09:00)
[2017-10-08] MEDS: DOCUSATE SODIUM 50 MG/SENNA 8.6 MG TAB PO SCH (09:00)
[2017-10-08] MEDS: THIAMINE HCL 100 MG TAB PO SCH (09:00)
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
== END 2017-10-08 12:30 | disposition left against medical advice (07) | DRG 894 ==
LOC: NEPD 21:59 → NEDA 08-15 16:43 → NEPHCDU 08-15 21:06 → OBSVTOIN 08-17 10:04 → N07B 08-22 19:13 → H4EN 10-07 11:23
PROVIDERS: ADMIT Family Medicine; ATTEND Family Medicine
DX: F10.27 Alcohol dependence with alcohol-induced persisting dementia (principal); F01.51 Vascular dementia, unspecified severity, with behavioral disturbance; G93.89 Other specified disorders of brain; R47.01 Aphasia; G81.91 Hemiplegia, unspecified affecting right dominant side; Z89.611 Acquired absence of right leg above knee; F17.290 Nicotine dependence, other tobacco product, uncomplicated; I10 Essential (primary) hypertension; Y90.0 Blood alcohol level of less than 20 mg/100 ml; I16.0 Hypertensive urgency; F39 Unspecified mood [affective] disorder; F43.21 Adjustment disorder with depressed mood; Z91.19 Patient's noncompliance with other medical treatment and regimen; Z79.82 Long term (current) use of aspirin
CPT/HCPCS: 70450; 80048; 80053; 80061; 80307; 85025; 96374; 96375; G0378; G8987-GP; G8988-GP; J2060